=== PATIENT | male | born 1950 | race Caucasian/White ===

== ENCOUNTER 2017-05-06 20:40 | Emergency (ER) | payer BC ==
--- NOTE | 2017-05-06 20:49 | PDOC ---
History of Present Illness - History of Present Illness Initial Comments: 05/06/17 21:03 Mr. Parsons is a 66 yo male w/ pmh of Stage 3/4 heart failure (last echo approx. 2 months ago in low 40's, Health Care Coordinator Dr. Navas), BPH, Transitional Cell Carcinoma of the bladder (in remission for approximately 1 year), DMII, ACS with Cardiac stents (5) who presents complaining of 3 days of right arm pain. He reports it started after he was helping his to shovel snow and that it has continued until today. He further reports it feels similar to his last cardiac event and that it is now involving the left arm as well. He is accompanied by his son who is a very good historian (current 3rd year med student). The patient denies chest pain, shortness of breath, headache and dizziness. Denies fever, chills, nausea, vomit, diarrhea and constipation. Denies dysuria, frequency, urgency and hematuria. Allergies: NKDA <Franki Robles - Last Filed: 05/06/17 23:15> <Cheryle Stovall - Last Filed: 05/06/17 23:42> - General Stated Complaint: WEAKNESS Time Seen by Provider: 05/06/17 20:49 Past History - Past Medical History Anemia: No Asthma: No Cancer: No Cardiac Disorders: Yes ([place] STENT INSERTION X3 2011) CVA: No COPD: No CHF: No Dementia: No Diabetes: Yes (NIDDM) GI Disorders: No Disorders: No HTN: Yes Hypercholesterolemia: Yes Liver Disease: No Seizures: No Thyroid Disease: No - Surgical History Cardiac Surgery: Yes (3 STENTS) - Suicide/Smoking/Psychosocial Hx Smoking History: Former smoker Have you smoked in the past 12 months: Yes 'Breaking Loose' booklet given: 03/02/16 Hx Alcohol Use: No Drug/Substance Use Hx: No Substance Use Type: None <Franki Robles - Last Filed: 05/06/17 23:15> <Cheryle Stovall - Last Filed: 05/06/17 23:42> - Past Medical History Allergies/Adverse Reactions: Allergies Allergy/AdvReac Type Severity Reaction Status Date / Time No Known Allergies Allergy Verified 05/06/17 21:08 Home Medications: Ambulatory Orders Aspirin [ASA -] 81 mg PO DAILY 03/02/16 Atorvastatin Ca [Lipitor] 40 mg PO HS 03/02/16 Carvedilol 25 mg PO BID 03/02/16 Fenofibrate [Lofibra] 160 mg PO DAILY 03/02/16 Glipizide Xl [Glucotrol Xl -] 10 mg PO DAILY@0700 03/02/16 Insulin Glulisine [Apidra Solostar] 100 unit SQ ASDIR 03/02/16 Linagliptin/Metformin HCl [Jentadueto 2.5 mg-1000 mg Tab] 1 each PO DAILY Lisinopril 5 mg PO DAILY 03/02/16 Omeprazole 40 mg PO DAILY 03/02/16 Prasugrel HCl [Effient] 5 mg PO DAILY 03/02/16 Tamsulosin HCl 0.4 mg PO DAILY 03/02/16 Isosorbide Mononitrate [Imdur -] 30 mg PO DAILY #30 tab.sr.24h 05/06/17 Ranolazine [Ranexa] 500 mg PO BID #60 tab.er.12h 05/06/17 Review of Systems - Review of Systems Comments:: 05/06/17 21:20 GENERAL/CONSTITUTIONAL: No fever or chills. No weakness. HEAD, EYES, EARS, NOSE AND THROAT: No change in vision. No ear pain or discharge. No sore throat. CARDIOVASCULAR: No chest pain or shortness of breath RESPIRATORY: No cough, wheezing, or hemoptysis. GASTROINTESTINAL: No nausea, vomiting, diarrhea or constipation. GENITOURINARY: No dysuria, frequency, or change in urination. MUSCULOSKELETAL: +Arm pain as described SKIN: No rash NEUROLOGIC: No headache, vertigo, loss of consciousness, or change in strength/ sensation. ENDOCRINE: No increased thirst. No abnormal weight change HEMATOLOGIC/LYMPHATIC: No anemia, easy bleeding, or history of blood clots. ALLERGIC/IMMUNOLOGIC: No hives or skin allergy. <Franki Robles - Last Filed: 05/06/17 23:15> *Physical Exam - Physical Exam Comments: 05/06/17 21:21 GENERAL: Awake, alert, and fully oriented, in no acute distress HEAD: No signs of trauma, normocephalic, atraumatic EYES: PERRLA, EOMI, sclera anicteric, conjunctiva clear ENT: Auricles normal inspection, hearing grossly normal, nares patent, oropharynx clear without exudates. Moist mucosa NECK: Normal ROM, supple, no lymphadenopathy, JVD, or masses LUNGS: No distress, speaks full sentences, clear to auscultation bilaterally HEART: Regular rate and rhythm, normal S1 and S2, no murmurs, rubs or gallops, peripheral pulses normal and equal bilaterally. ABDOMEN: Soft, nontender, normoactive bowel sounds. No guarding, no rebound. No masses EXTREMITIES: Normal inspection, Normal range of motion, no edema. No clubbing or cyanosis. NEUROLOGICAL: Cranial nerves II through XII grossly intact. Normal speech, normal gait, no focal sensorimotor deficits SKIN: Warm, Dry, normal turgor, no rashes or lesions noted. <Franki Robles - Last Filed: 05/06/17 23:15> - Vital Signs Last Vital Signs Temp Pulse Resp BP Pulse Ox 97.6 F 88 20 130/86 92 L 05/06/17 20:40 05/06/17 20:40 05/06/17 20:40 05/06/17 20:40 05/06/17 20:40 <Cheryle Stovall - Last Filed: 05/06/17 23:42> ED Treatment Course - LABORATORY CBC & Chemistry Diagram: 05/06/17 21:00 05/06/17 21:00 <Franki Robles - Last Filed: 05/06/17 23:15> - LABORATORY CBC & Chemistry Diagram: 05/06/17 21:00 05/06/17 21:00 - ADDITIONAL ORDERS Additional order review: Laboratory Results 05/06/17 05/06/17 05/06/17 21:00 21:00 21:00 PT with INR 11.60 INR 1.03 PTT (Actin FS) 28.9 Sodium Potassium Chloride Carbon Dioxide Anion Gap BUN Creatinine Creat Clearance w eGFR Random Glucose Lactic Acid 1.9 Calcium Total Bilirubin AST ALT Alkaline Phosphatase Creatine Kinase Troponin I Total Protein Albumin Blood Type A POSITIVE Antibody Screen Negative 05/06/17 21:00 PT with INR INR PTT (Actin FS) Sodium 137 Potassium 4.1 Chloride 102 Carbon Dioxide 28 Anion Gap 7 L BUN 13 Creatinine 0.8 Creat Clearance w eGFR > 60 Random Glucose 170 H Lactic Acid Calcium 8.6 Total Bilirubin 0.6 AST 14 L ALT 29 Alkaline Phosphatase 63 Creatine Kinase 74 Troponin I < 0.02 Total Protein 7.4 Albumin 3.7 Blood Type Antibody Screen 05/06/17 21:00 RBC 5.96 H MCV 70.7 L MCHC 31.9 L RDW 18.5 H MPV 8.9 Neutrophils % No Result Required. Lymphocytes % No Result Required. <Cheryle Stovall - Last Filed: 05/06/17 23:42> Medical Decision Making - Medical Decision Making 05/06/17 22:12 Mr. Parsons is a 66 yo male w/ pmh as described who presents w/ complaints of Right arm pain for 3 days. Due to cardiac history workup begun for ACS; troponins and EKG revealed no acute process. Discussed patient with incident response analyst who recommended Ranexa and Imdur and follow-up. Patient verbalized understanding and agreement and will comply. <Franki Robles - Last Filed: 05/06/17 23:15> *DC/Admit/Observation/Transfer <Franki Robles - Last Filed: 05/06/17 23:15> <Cheryle Stovall - Last Filed: 05/06/17 23:42> - Discharge Dispostion Disposition: HOME - Prescriptions Prescriptions: Isosorbide Mononitrate [Imdur -] 30 mg PO DAILY #30 tab.sr.24h Ranolazine [Ranexa] 500 mg PO BID #60 tab.er.12h
[2017-05-06 21:15] LABS: HEMATOCRIT 42.1 % (35.4-49); HEMOGLOBIN 13.4 GM/dL (11.7-16.9); MCH 22.5 pg (25.7-33.7); MCHC 31.9 g/dl (32.0-35.9); MEAN CELL VOLUME 70.7 fl (80-96); MEAN PLT VOLUME 8.9 fl (7.5-11.1); PLATELET COUNT 202 K/MM3 (134-434); RBC 5.96 M/mm3 (4.00-5.60); RDW 18.5 % (11.9-15.9); WHITE BLOOD COUNT 6.6 K/mm3 (4.0-10.0)
[2017-05-06 21:29] LABS: INR 1.03 (0.82-1.09); PROTHROMBIN TIME (PATIENT) 11.6 SEC (9.98-11.88)
[2017-05-06 21:32] LABS: ACTIVATED PTT 28.9 SECONDS (26.9-34.4)
[2017-05-06 21:40] VITALS: BP 130/86; PULSE 88; TEMP 97.6; BMI 28.7
[2017-05-06 21:40] LABS: ALBUMIN 3.7 g/dl (3.4-5.0); ANION GAP 7 (8-16); BILIRUBIN,TOTAL 0.6 mg/dL (0.2-1.0); BLOOD UREA NITROGEN 13 mg/dL (7-18); CALCIUM 8.6 mg/dL (8.5-10.1); CHLORIDE 102 mmol/L (98-107); CO2 28 mmol/L (21-32); CREATININE 0.8 mg/dL (0.7-1.3); GLUCOSE,RANDOM 170 mg/dL (74-106); POTASSIUM 4.1 mmol/L (3.5-5.1); SGOT/AST 14 U/L (15-37); SGPT/ALT 29 U/L (12-78); SODIUM 137 mmol/L (136-145)
[2017-05-06 21:43] LABS: ALK PHOS 63 U/L (45-117); TOT PROT 7.4 g/dl (6.4-8.2)
[2017-05-07 01:21] LABS: ANISOCYTOSIS 1+
--- NOTE | 2017-05-07 16:49 | EKG ---
Test Reason : Blood Pressure : / mmHG Vent. Rate : 088 BPM Atrial Rate : 088 BPM P-R Int : 170 ms QRS Dur : 090 ms QT Int : 380 ms P-R-T Axes : 019 -12 044 degrees QTc Int : 459 ms NORMAL SINUS RHYTHM LOW VOLTAGE QRS CANNOT RULE OUT INFERIOR INFARCT (CITED ON OR BEFORE 31-AUG-2004) ABNORMAL ECG WHEN COMPARED WITH ECG OF 13-JUN-2013 09:22, NO SIGNIFICANT CHANGE WAS FOUND Confirmed by EVE MOBLEY MD ([id number]) on 05/07/2017 4:49:24 PM Referred By: Confirmed By:EVE MOBLEY MD
== END 2017-05-06 22:54 | disposition home or self-care (01) ==
LOC: JER 20:40
DX: I25.10 Atherosclerotic heart disease of native coronary artery without angina pectoris (principal); I11.0 Hypertensive heart disease with heart failure; Z95.5 Presence of coronary angioplasty implant and graft; E11.9 Type 2 diabetes mellitus without complications; Z79.84 Long term (current) use of oral hypoglycemic drugs; E78.00 Pure hypercholesterolemia, unspecified
CPT/HCPCS: 36415; 71046-TC; 80053; 82550; 83605; 84484; 85025; 85610; 85730; 86850; 86900; 86901; 93005; 93010; 99282-25

== ENCOUNTER 2017-12-09 12:30 | Inpatient (IN) | payer BC ==
[2017-12-09 14:11] LABS: BASO % 0.7 % (0-2.0); EOS % 0.6 % (0-4.5); HEMATOCRIT 38.1 % (35.4-49); HEMOGLOBIN 12.8 GM/dL (11.7-16.9); LYMPH % 15.1 % (8-40); MCH 23.7 pg (25.7-33.7); MCHC 33.5 g/dl (32.0-35.9); MEAN CELL VOLUME 70.9 fl (80-96); MONO % 8.9 % (3.8-10.2); NEUT % 74.7 % (42.8-82.8); PLATELET COUNT 169 K/MM3 (134-434); RBC 5.37 M/mm3 (4.00-5.60); RDW 17.7 % (11.9-15.9); WHITE BLOOD COUNT 5.3 K/mm3 (4.0-10.0)
--- NOTE | 2017-12-09 14:21 | PDOC ---
History of Present Illness - General Chief Complaint: Pain, Acute Stated Complaint: EPIGASTRIC PAIN/PCP REFERRAL Time Seen by Provider: 12/09/17 14:14 - History of Present Illness Initial Comments: 12/09/17 14:20 Mr. Parsons is a 67 yo male w/ pmh of Stage 3/4 heart failure (last echo approx. 2 months ago in low 40's, [employer] Supervisor Dr. Navas), BPH, Transitional Cell Carcinoma of the bladder (in remission for approximately 1 year), DMII, ACS with Cardiac stents (5) presenting with epigastric pain worsening after eating or drinking since 2 days. No episodes of vomiting but endorses nausea. Was given PPI's that he uses for GERD and felt much better. Patient now virtually asymptomatic. Sent by Dr. Brown to r/o gallstones. Past History - Past Medical History Allergies/Adverse Reactions: Allergies Allergy/AdvReac Type Severity Reaction Status Date / Time No Known Allergies Allergy Verified 12/09/17 12:39 Home Medications: Ambulatory Orders Aspirin [ASA -] 81 mg PO DAILY 03/02/16 Atorvastatin Ca [Lipitor] 40 mg PO HS 03/02/16 Carvedilol 25 mg PO BID 03/02/16 Fenofibrate [Lofibra] 160 mg PO DAILY 03/02/16 Glipizide Xl [Glucotrol Xl -] 10 mg PO DAILY@0700 03/02/16 Insulin Glulisine [Apidra Solostar] 100 unit SQ ASDIR 03/02/16 Linagliptin/Metformin HCl [Jentadueto 2.5 mg-1000 mg Tab] 1 each PO DAILY Lisinopril 5 mg PO DAILY 03/02/16 Omeprazole 40 mg PO DAILY 03/02/16 Prasugrel HCl [Effient] 5 mg PO DAILY 03/02/16 Tamsulosin HCl 0.4 mg PO DAILY 03/02/16 Isosorbide Mononitrate [Imdur -] 30 mg PO DAILY #30 tab.sr.24h 05/06/17 Ranolazine [Ranexa] 500 mg PO BID #60 tab.er.12h 05/06/17 Anemia: No Asthma: No Cancer: Yes (BLADDER) Cardiac Disorders: Yes ([place] STENT INSERTION X4 2011) CVA: No COPD: No CHF: No DVT: No Dementia: No Diabetes: Yes (NIDDM) GI Disorders: No Disorders: No HTN: Yes Hypercholesterolemia: Yes Liver Disease: No Seizures: No Thyroid Disease: No - Surgical History Cardiac Surgery: Yes (3 STENTS) - Suicide/Smoking/Psychosocial Hx Smoking History: Former smoker Have you smoked in the past 12 months: Yes If you are a former smoker, when did you quit?: 1 year ago Information on smoking cessation initiated: No 'Breaking Loose' booklet given: 03/02/16 Hx Alcohol Use: No Drug/Substance Use Hx: No Substance Use Type: None Review of Systems - Review of Systems Able to Perform ROS?: Yes Is the patient limited Swedish proficient: No Constitutional: No: Symptoms Reported HEENTM: No: Symptoms Reported Respiratory: No: Symptoms reported Cardiac (ROS): No: Symptoms Reported ABD/GI: Yes: See HPI : No: Symptoms Reported Musculoskeletal: No: Symptoms Reported Integumentary: No: Symptoms Reported All Other Systems: Reviewed and Negative *Physical Exam - Vital Signs Last Vital Signs Temp Pulse Resp BP Pulse Ox 98.6 F 96 H 18 92/58 100 12/09/17 12:39 12/09/17 12:39 12/09/17 12:39 12/09/17 12:39 12/09/17 12:39 - Physical Exam General Appearance: Yes: Nourished, Appropriately Dressed, Apparent Distress HEENT: positive: EOMI, RANDOLPH, Normal ENT Inspection Respiratory/Chest: positive: Lungs Clear, Normal Breath Sounds. negative: Chest Tender, Respiratory Distress Cardiovascular: positive: Regular Rhythm, Regular Rate, S1, S2 Gastrointestinal/Abdominal: positive: Normal Bowel Sounds, Flat, Soft. negative : Tender Musculoskeletal: positive: Normal Inspection Extremity: positive: Normal Capillary Refill, Normal Inspection, Normal Range of Motion Integumentary: positive: Normal Color, Dry, Warm Neurologic: positive: Fully Oriented, Alert, Normal Mood/Affect, Normal Response , Motor Strength 5/5 ED Treatment Course - LABORATORY CBC & Chemistry Diagram: 12/09/17 14:00 12/09/17 14:00 - ADDITIONAL ORDERS Additional order review: 12/09/17 14:00 RBC 5.37 MCV 70.9 L MCHC 33.5 RDW 17.7 H MPV 9.0 Neutrophils % 74.7 Lymphocytes % 15.1 Monocytes % 8.9 Eosinophils % 0.6 Basophils % 0.7 Medical Decision Making - Medical Decision Making 12/09/17 15:54labs abd US pending. This is more likely dyspepsia vs chronic cholecystitis vs cholelithiasis 12/09/17 17:56 Cholelithiasis is noted. There is diffuse gallbladder wall thickening. Similar diffuse gallbladder wall thickening was noted on a 02/02/2016 MRI study suggesting this finding is on the basis of chronic cholecystitis and probably less likely representing recurrent wall thickening due to acute cholecystitis. Correlate clinically. There is no definite biliary tract dilatation. Diffuse hepatic steatosis is noted. A 2.4 cm nonspecific hypoechoic left hepatic lobe focus is seen which could be on the basis of incidental focal fatty sparing. However, no definite corresponding focus can be appreciated on the 2016 MRI study. Correlation with nonemergent follow-up contrast enhanced MRI is suggested to exclude development of a neoplastic lesion. Spoke to Dr. Brown who asked to admit to dr. Vences and surgical consult with Dr. Aguilar. Will start patient on zosyn. 12/09/17 18:[address] Aguilar who will see the patient in the morning. Patient admitted to Med-surg under Dr. Vences *DC/Admit/Observation/Transfer Diagnosis at time of Disposition: Chronic cholecystitis - Discharge Dispostion Decision to Admit order: Yes - Referrals Referrals: Aleja Brown MD [Primary Care Provider] - - Patient Instructions - Post Discharge Activity
[2017-12-09 15:24] LABS: ANISOCYTOSIS 0; MACROCYTOSIS 0; PLATELET ESTIMATE NORMAL
--- NOTE | 2017-12-09 15:43 | PDOC ---
Attending Attestation - HPI HPI: 12/09/17 16:50 The patient is a 67-year-old male with a past medical history of [place] s/p stents, NIDDM, HTN, and HLD was sent in by Dr. Brown for evaluation. The patient presents with an acute onset of epigastric pain for the past 2 days, aggravated following eating or drinking, without relief. The patient reports associated concern of nausea denies vomiting. Denies fever, chills, cough or a headache. Denies chest pain or shortness of breath. Denies dysuria, hematuria, frequency or urgency to urinate. Allergies: NKA Surgical history: Stents and hernia repair Social history: Former smoker. No alcohol or recreational drug use reported. PCP: Aleja Chan MD - Physicial Exam PE: 12/09/17 16:50 Vitals: Triage vital signs reviewed General Appearance: No acute distress, well nourished, well developed Head: Atraumatic Neck: Supple; No nuchal rigidity Chest Wall: Nontender Cardiac: Regular rate and rhythm, no murmurs, no rubs, no gallops Lungs: Clear to auscultation bilateral, good air movement bilaterally Abdomen: Soft, nondistended, normal bowel sounds, nontender to palpation Extremities: Full range of motion to all extremities, no cyanosis, clubbing, or edema Skin: Warm and dry, no rashes or lesions, no rash, no petechiae Psych: Normal mood, normal affect - Medical Decision Making 12/09/17 16:50 The patient is a 67-year-old male with a past medical history of [place] s/p stents, NIDDM, HTN, and HLD was sent in by Dr. Brown for evaluation. The patient presents with an acute onset of epigastric pain for the past 2 days, aggravated following eating or drinking, without relief. The patient reports associated concern of nausea denies vomiting. Denies fever, chills, cough or a headache. Denies chest pain or shortness of breath. Denies dysuria, hematuria, frequency or urgency to urinate. 12/09/17 16:51 Documentation prepared by Alem Eller, acting as medical superintendent for Cody Layton MD. <Alem Eller - Last Filed: 12/09/17 16:50> - Resident Resident Name: Jono Moncada - ED Attending Attestation I have performed the following: I have examined & evaluated the patient, The case was reviewed & discussed with the resident, I agree w/resident's findings & plan, Exceptions are as noted - Medical Decision Making Labs ultrasound pending Dr. Perera to follow up results and reassess. <Cody Layton - Last Filed: 12/09/17 17:17>
[2017-12-09 17:33] LABS: ALBUMIN 3.5 g/dl (3.4-5.0); ALK PHOS 94 U/L (45-117); AMYLASE 44 U/L (25-115); ANION GAP 11 (8-16); BILIRUBIN,TOTAL 2.6 mg/dL (0.2-1.0); BLOOD UREA NITROGEN 20 mg/dL (7-18); CALCIUM 9.6 mg/dL (8.5-10.1); CHLORIDE 103 mmol/L (98-107); CO2 24 mmol/L (21-32); GLUCOSE,RANDOM 104 mg/dL (74-106); LIPASE 101 U/L (73-393); SGPT/ALT 359 U/L (12-78); SODIUM 138 mmol/L (136-145); TOT PROT 6.7 g/dl (6.4-8.2)
[2017-12-09 17:39] LABS: POTASSIUM 4.7 mmol/L (3.5-5.1); SGOT/AST 416 U/L (15-37)
[2017-12-09 17:49] LABS: INR 1.13 (0.83-1.09); PROTHROMBIN TIME (PATIENT) 12.8 SEC (9.7-13.0)
[2017-12-09 17:51] LABS: ACTIVATED PTT 25.8 SECONDS (25.2-36.5)
[2017-12-09] MEDS ORDERED: PIPERACILLIN/TAZOB 3.375 GM 3.375 GM in DEXTROSE 5%-WATER - 50 ML IVPB ONE (17:52)
[2017-12-09] MEDS ORDERED: SODIUM CHLORIDE 1,000 ML IV STA (17:58)
[2017-12-09] MEDS ORDERED: MORPHINE SULFATE 2 MG/ML VIAL IVPUSH PRN (17:59)
--- NOTE | 2017-12-09 18:04 | HP ---
Admitting History and Physical - Admission History of Present Illness: 67-year-old male with a past medical history of [place] s/p stents, NIDDM, HTN, and HLD was sent in by Dr. Brown for evaluation. The patient presents with an acute onset of epigastric pain for the past 2 days, aggravated following eating or drinking, without relief. The patient reports associated concern of nausea denies vomiting. Denies fever, chills, cough or a headache. Denies chest pain or shortness of breath. Denies dysuria, hematuria, frequency or urgency to urinate. Patient feels better at this time - Past Medical History Cardiovascular: Yes: CAD (s.p stenting), HTN, Hyperlipdemia Gastrointestinal: Yes: GERD Renal/: Yes: Cancer (bladder) Endocrine: Yes: Diabetes Mellitus - Smoking History Smoking history: Former smoker Have you smoked in the past 12 months: Yes If you are a former smoker, when did you quit?: 1 year ago - Alcohol/Substance Use Hx Alcohol Use: No Home Medications - Allergies Allergies/Adverse Reactions: Allergies Allergy/AdvReac Type Severity Reaction Status Date / Time No Known Allergies Allergy Verified 12/09/17 12:39 - Home Medications Home Medications: Ambulatory Orders Aspirin [ASA -] 81 mg PO DAILY 03/02/16 Atorvastatin Ca [Lipitor] 40 mg PO HS 03/02/16 Carvedilol 25 mg PO BID 03/02/16 Fenofibrate [Lofibra] 160 mg PO DAILY 03/02/16 Glipizide Xl [Glucotrol Xl -] 10 mg PO DAILY@0700 03/02/16 Insulin Glulisine [Apidra Solostar] 100 unit SQ ASDIR 03/02/16 Linagliptin/Metformin HCl [Jentadueto 2.5 mg-1000 mg Tab] 1 each PO DAILY Lisinopril 5 mg PO DAILY 03/02/16 Omeprazole 40 mg PO DAILY 03/02/16 Prasugrel HCl [Effient] 5 mg PO DAILY 03/02/16 Tamsulosin HCl 0.4 mg PO DAILY 03/02/16 Isosorbide Mononitrate [Imdur -] 30 mg PO DAILY #30 tab.sr.24h 05/06/17 Ranolazine [Ranexa] 500 mg PO BID #60 tab.er.12h 05/06/17 Review of Systems - Review of Systems Cardiovascular: denies: Chest Pain, Palpitations, Shortness of Breath Respiratory: denies: SOB Gastrointestinal: reports: Abdominal Pain, Nausea. denies: Vomiting Genitourinary: reports: No Symptoms Neurological: reports: No Symptoms Physical Examination Vital Signs: Vital Signs Temperature 98.6 F 12/09/17 12:39 Pulse Rate 96 H 12/09/17 12:39 Respiratory Rate 18 12/09/17 12:39 Blood Pressure 92/58 12/09/17 12:39 O2 Sat by Pulse Oximetry (%) 100 12/09/17 12:39 Cardiovascular: Yes: Regular Rate and Rhythm Respiratory: Yes: Regular, CTA Bilaterally Gastrointestinal: Yes: Normal Bowel Sounds, Soft. No: Tenderness Edema: No Labs: CBC, BMP 12/09/17 14:00 Imaging - Results Ultrasound: Report Reviewed Problem List - Problems (1) Cholecystitis Assessment/Plan: -Cultures -IV abx -ID Surgical and GI consults -Follow Labs -NPO Code(s): K81.9 - CHOLECYSTITIS, UNSPECIFIED (2) Abnormal liver enzymes Assessment/Plan: -As Above Code(s): R74.8 - ABNORMAL LEVELS OF OTHER SERUM ENZYMES (3) Cholelithiasis Assessment/Plan: =MRCP Code(s): K80.20 - CALCULUS OF GALLBLADDER W/O CHOLECYSTITIS W/O OBSTRUCTION (4) Diabetes Assessment/Plan: -Hold meds since npo -IVF -BGM Code(s): E11.9 - TYPE 2 DIABETES MELLITUS WITHOUT COMPLICATIONS (5) Liver lesion Assessment/Plan: -MRI Code(s): K76.9 - LIVER DISEASE, UNSPECIFIED (6) CAD (coronary artery disease) Code(s): I25.10 - ATHSCL HEART DISEASE OF [place] CORONARY ARTERY W/O ANG PCTRS (7) Bladder cancer Assessment/Plan: in Remission Code(s): C67.9 - MALIGNANT NEOPLASM OF BLADDER, UNSPECIFIED
[2017-12-09] MEDS ORDERED: PIPERACILLIN/TAZOB 3.375 GM 3.375 GM/50 ML BAG IVPB ONE (18:46)
[2017-12-09] MEDS: CARVEDILOL 25 MG TABLET (FP) PO SCH (21:48)
[2017-12-09] MEDS: HEPARIN NA (PORCINE) 5,000 UNITS/ML 1ML VIAL SQ SCH (21:48)
[2017-12-09] MEDS: RANOLAZINE E.R. 500 MG TABLET (FP) PO SCH (21:48)
[2017-12-09] MEDS: D5-1/2NS+20 MEQ KCL - 20 MEQ/1,000 ML INFUS.BAG IV SCH (21:50)
[2017-12-09] MEDS: INSULIN SLIDING SCALE (NOVOLOG) 1 VIAL SQ SCH (21:57)
[2017-12-09 22:47] VITALS: BMI 28.1
[2017-12-10] MEDS ORDERED: DEXTROSE 5%-WATER - 50 ML IVPB ONE ×2 (00:41→10:18)
[2017-12-10] MEDS ORDERED: PIPERACILLIN/TAZOBACTAM 3.375 GM VIAL IVPB ONE ×2 (00:41→10:18)
[2017-12-10] MEDS: PIPERACILLIN/TAZOB 3.375 GM 3.375 GM in DEXTROSE 5%-WATER - 50 ML IVPB SCH ×2 (01:35→10:44)
[2017-12-10] MEDS: INSULIN SLIDING SCALE (NOVOLOG) 1 VIAL SQ SCH ×4 (06:25→22:18)
[2017-12-10] MEDS ORDERED: TAMSULOSIN HCL 0.4 MG CAP.ER.24H (FP) PO SCH (08:30)
[2017-12-10 09:01] LABS: BASO % 0.6 % (0-2.0); EOS % 2.5 % (0-4.5); HEMATOCRIT 37.7 % (35.4-49); HEMOGLOBIN 12.6 GM/dL (11.7-16.9); LYMPH % 20.1 % (8-40); MCH 23.6 pg (25.7-33.7); MCHC 33.4 g/dl (32.0-35.9); MEAN CELL VOLUME 70.8 fl (80-96); MEAN PLT VOLUME 9.1 fl (7.5-11.1); MONO % 9.6 % (3.8-10.2); NEUT % 67.2 % (42.8-82.8); PLATELET COUNT 151 K/MM3 (134-434); RBC 5.33 M/mm3 (4.00-5.60); RDW 17.8 % (11.9-15.9)
--- NOTE | 2017-12-10 09:17 | CONSULT ---
Consult Consult Specialty:: surgery - History of Present Illness Chief Complaint: Abdominal pain History of Present Illness: 67 yr old male presents with acute onset of epigastric pain radiatin to the RUQ which began approximately 36 hrs ago. He reports significnat improvement on pain syndrome since arrival in the hospital, Denies nausea or vomiting - History Source History Provided By: Patient Limitations to Obtaining History: No Limitations - Past Medical History Cardio/Vascular: Yes: CAD (s.p stenting), HTN, Hyperlipdemia Gastrointestinal: Yes: GERD Renal/: Yes: Cancer (bladder) Endocrine: Yes: Diabetes Mellitus - Alcohol/Substance Use Hx Alcohol Use: No - Smoking History Smoking history: Former smoker Have you smoked in the past 12 months: Yes If you are a former smoker, when did you quit?: 3 years ago Home Medications - Allergies Allergies/Adverse Reactions: Allergies Allergy/AdvReac Type Severity Reaction Status Date / Time No Known Allergies Allergy Verified 12/09/17 12:39 - Home Medications Home Medications: Ambulatory Orders Aspirin [ASA -] 81 mg PO DAILY 03/02/16 Atorvastatin Ca [Lipitor] 40 mg PO HS 03/02/16 Carvedilol 25 mg PO BID 03/02/16 Fenofibrate [Lofibra] 160 mg PO DAILY 03/02/16 Glipizide Xl [Glucotrol Xl -] 10 mg PO DAILY@0700 03/02/16 Insulin Glulisine [Apidra Solostar] 100 unit SQ ASDIR 03/02/16 Linagliptin/Metformin HCl [Jentadueto 2.5 mg-1000 mg Tab] 1 each PO DAILY Lisinopril 5 mg PO DAILY 03/02/16 Omeprazole 40 mg PO DAILY 03/02/16 Prasugrel HCl [Effient] 5 mg PO DAILY 03/02/16 Tamsulosin HCl 0.4 mg PO DAILY 03/02/16 Isosorbide Mononitrate [Imdur -] 30 mg PO DAILY #30 tab.sr.24h 05/06/17 Ranolazine [Ranexa] 500 mg PO BID #60 tab.er.12h 05/06/17 Physical Exam Vital Signs: Vital Signs Temperature 97.6 F 12/10/17 06:00 Pulse Rate 85 12/10/17 06:00 Respiratory Rate 20 12/10/17 06:00 Blood Pressure 92/60 12/10/17 06:00 O2 Sat by Pulse Oximetry (%) 97 12/09/17 21:10 Imaging - Results Ultrasound: Report Reviewed, Image Reviewed MRI: Image Reviewed Problem List - Problems (1) Cholecystitis Code(s): K81.9 - CHOLECYSTITIS, UNSPECIFIED Assessment/Plan 67 yr old male with acute on chronic cholecystitis and elevated Bili and liver enzymes MRCP results pending Plan for laparoscopic cholecystectomy either tomorrow or tuesday depending on whether MRCP dictates Preop GI intervention
[2017-12-10 09:23] LABS: ALBUMIN 3.3 g/dl (3.4-5.0); ANION GAP 9 (8-16); BLOOD UREA NITROGEN 12 mg/dL (7-18); CALCIUM 8.6 mg/dL (8.5-10.1); CHLORIDE 105 mmol/L (98-107); CO2 26 mmol/L (21-32); CREATININE 0.9 mg/dL (0.7-1.3); GLUCOSE,RANDOM 96 mg/dL (74-106); LIPASE 93 U/L (73-393); SGOT/AST 329 U/L (15-37); SODIUM 140 mmol/L (136-145); TOT PROT 6.4 g/dl (6.4-8.2)
[2017-12-10 09:26] LABS: ALK PHOS 126 U/L (45-117)
[2017-12-10 09:31] LABS: SGPT/ALT 439 U/L (12-78)
[2017-12-10 09:38] LABS: CHOLESTEROL 118 mg/dL (50-200); HDL CHOLESTEROL 28 mg/dL (40-60); TRIGLYCERIDES 275 mg/dL (35-160)
--- NOTE | 2017-12-10 10:41 | PN ---
Progress Note, Physician History of Present Illness: denies any pain - Current Medication List Current Medications: Active Medications Carvedilol (Coreg -) 25 mg PO BID [facility] Last Admin: 12/09/17 21:48 Dose: 25 mg Heparin Sodium (Porcine) (Heparin -) 5,000 unit SQ BID [facility] Last Admin: 12/09/17 21:48 Dose: 5,000 unit Potassium Chloride/Dextrose/Sod Cl (D5-1/2ns+20 Meq Kcl -) 20 meq in 1,000 mls @ 75 mls/hr IV ASDIR [facility] Last Admin: 12/09/17 21:50 Dose: 75 mls/hr Piperacillin Sod/Tazobactam (Sod 3.375 gm/ Dextrose) 50 mls @ 100 mls/hr IVPB Q8H-IV [facility]; Protocol Insulin Aspart (Novolog Vial Sliding Scale -) 1 vial SQ ACHS [facility]; Protocol Last Admin: 12/10/17 06:25 Dose: Not Given Isosorbide Mononitrate (Imdur -) 30 mg PO DAILY [facility] Lisinopril (Prinivil) 5 mg PO DAILY [facility] Morphine Sulfate (Morphine Sulfate) 1 mg IVPUSH Q4H PRN PRN Reason: PAIN LEVEL 6-10 Ranolazine (Ranexa -) 500 mg PO BID [facility] Last Admin: 12/09/17 21:48 Dose: 500 mg Tamsulosin HCl (Flomax -) 0.4 mg PO DAILY@0830 [facility] Last Admin: 12/10/17 08:39 Dose: 0.4 mg - Objective Vital Signs: Vital Signs Temperature 97.6 F 12/10/17 06:00 Pulse Rate 85 12/10/17 06:00 Respiratory Rate 20 12/10/17 06:00 Blood Pressure 92/60 12/10/17 06:00 O2 Sat by Pulse Oximetry (%) 97 12/09/17 21:10 Cardiovascular: Yes: Regular Rate and Rhythm Respiratory: Yes: Regular, CTA Bilaterally Gastrointestinal: Yes: Normal Bowel Sounds, Soft. No: Tenderness Labs: CBC, BMP 12/10/17 08:00 12/10/17 08:00 INR, PTT INR 1.13 (0.83-1.09) H 12/09/17 17:25 Problem List - Problems (1) Cholecystitis Assessment/Plan: -Cultures Microbiology 12/09/17 18:45 Blood Culture - Preliminary Blood - Peripheral Venous Pending Organism -IV abx--on zosyn -ID Surgical and GI consults -Follow Labs -NPO Code(s): K81.9 - CHOLECYSTITIS, UNSPECIFIED (2) Abnormal liver enzymes Assessment/Plan: -As Above Code(s): R74.8 - ABNORMAL LEVELS OF OTHER SERUM ENZYMES (3) Cholelithiasis Assessment/Plan: =MRCP--1.8 cm stone a t neck pf gb -surgical consult noted and discussed--for cholecystectomy Code(s): K80.20 - CALCULUS OF GALLBLADDER W/O CHOLECYSTITIS W/O OBSTRUCTION (4) Diabetes Assessment/Plan: -Hold meds since npo -IVF -BGM Code(s): E11.9 - TYPE 2 DIABETES MELLITUS WITHOUT COMPLICATIONS (5) Liver lesion Assessment/Plan: -MRI--fatty liver Code(s): K76.9 - LIVER DISEASE, UNSPECIFIED (6) CAD (coronary artery disease) Assessment/Plan: --Cradio consult -last ef noted 31% --EKG--NSR inferior q waves -trop negative -no cp or sob -Preop eval Code(s): I25.10 - ATHSCL HEART DISEASE OF [place] CORONARY ARTERY W/O ANG PCTRS (7) Bladder cancer Assessment/Plan: in Remission Code(s): C67.9 - MALIGNANT NEOPLASM OF [place]AD[place], UNSPECIFIED
[2017-12-10] MEDS: RANOLAZINE E.R. 500 MG TABLET (FP) PO SCH ×2 (10:44→22:10)
[2017-12-10] MEDS: ISOSORBIDE MONONITRATE 30 MG TAB.SR.24H (FP) PO SCH (10:44)
[2017-12-10] MEDS: CARVEDILOL 25 MG TABLET (FP) PO SCH ×3 (10:44→22:15)
[2017-12-10] MEDS: HEPARIN NA (PORCINE) 5,000 UNITS/ML 1ML VIAL SQ SCH ×2 (10:45→22:10)
[2017-12-10] MEDS: LISINOPRIL 5 MG TABLET (FP) PO SCH (10:46)
[2017-12-10 12:25] LABS: PLATELET ESTIMATE ADEQUATE
--- NOTE | 2017-12-10 14:34 | CON.CARD ---
Consult Consult Specialty:: Cardiology Referred by:: Bijan Vences MD Reason for Consultation:: Pre-operative cardiovascular evaluation - History of Present Illness Chief Complaint: Abd pain History of Present Illness: 67-year-old male with h/o CAD post OK s/p multivessel stents, ischemic dilated cardiomyopathy, NIDDM, HTN, and HLD presented with an acute onset of epigastric pain radiating to RUQ aggravated following eating or drinking, associated with nausea without vomiting, fevers, chills, since resolved. Denies chest pain or shortness of breath worse than baseline, near or true syncope, palpitations, orthopnea, PND or LE edema. Imaging shows cholelithiasis and chronic cholecystitis w/o choledocholithiasis. Last dose of Effient . - History Source History Provided By: Patient Limitations to Obtaining History: No Limitations - Past Medical History Cardio/Vascular: Yes: CAD (s.p stenting), HTN, Hyperlipdemia Gastrointestinal: Yes: GERD Renal/: Yes: Cancer (bladder) Endocrine: Yes: Diabetes Mellitus - Alcohol/Substance Use Hx Alcohol Use: No - Smoking History Smoking history: Former smoker Have you smoked in the past 12 months: Yes If you are a former smoker, when did you quit?: 3 years ago Home Medications - Allergies Allergies/Adverse Reactions: Allergies Allergy/AdvReac Type Severity Reaction Status Date / Time No Known Allergies Allergy Verified 12/09/17 12:39 - Home Medications Home Medications: Ambulatory Orders Aspirin [ASA -] 81 mg PO DAILY 03/02/16 Atorvastatin Ca [Lipitor] 40 mg PO HS 03/02/16 Carvedilol 25 mg PO BID 03/02/16 Fenofibrate [Lofibra] 160 mg PO DAILY 03/02/16 Glipizide Xl [Glucotrol Xl -] 10 mg PO DAILY@0700 03/02/16 Insulin Glulisine [Apidra Solostar] 100 unit SQ ASDIR 03/02/16 Linagliptin/Metformin HCl [Jentadueto 2.5 mg-1000 mg Tab] 1 each PO DAILY Lisinopril 5 mg PO DAILY 03/02/16 Omeprazole 40 mg PO DAILY 03/02/16 Prasugrel HCl [Effient] 5 mg PO DAILY 03/02/16 Tamsulosin HCl 0.4 mg PO DAILY 03/02/16 Isosorbide Mononitrate [Imdur -] 30 mg PO DAILY #30 tab.sr.24h 05/06/17 Ranolazine [Ranexa] 500 mg PO BID #60 tab.er.12h 05/06/17 Review of Systems - Review of Systems Gastrointestinal: reports: Abdominal Pain, Nausea Vital Signs: Vital Signs Temperature 97.6 F 12/10/17 06:00 Pulse Rate 85 12/10/17 06:00 Respiratory Rate 20 12/10/17 06:00 Blood Pressure 92/60 12/10/17 06:00 O2 Sat by Pulse Oximetry (%) 97 12/09/17 21:10 Constitutional: Yes: No Distress, Calm Neck: Yes: Supple Respiratory: Yes: Regular, CTA Bilaterally Gastrointestinal: Yes: Soft, Hypoactive Bowel Sounds Cardiovascular: Yes: Regular Rate and Rhythm JVD: No Carotid Bruit: No Heart Sounds: Yes: S1, S2 Edema: No - Other Data Labs, Other Data: CBC, BMP 12/10/17 08:00 12/10/17 08:00 INR, PTT INR 1.13 (0.83-1.09) H 12/09/17 17:25 Troponin, BNP 12/09/17 12/10/17 14:00 08:00 Troponin I < 0.02 < 0.02 Troponin, BNP 12/09/17 12/10/17 14:00 08:00 Troponin I < 0.02 < 0.02 NSR @ 95 inferior infarct Ejection Fraction %: LVEF < 40 % Imaging - Results Ultrasound: Report Reviewed MRI: Report Reviewed Problem List - Problems (1) Ischemic cardiomyopathy Code(s): I25.5 - ISCHEMIC CARDIOMYOPATHY (2) Pre-operative cardiovascular examination Code(s): Z01.810 - ENCOUNTER FOR PREPROCEDURAL CARDIOVASCULAR EXAMINATION (3) Hyperlipidemia associated with type 2 diabetes mellitus Code(s): E11.69 - TYPE 2 DIABETES MELLITUS WITH OTHER SPECIFIED COMPLICATION; E78.5 - HYPERLIPIDEMIA, UNSPECIFIED (4) Hypertensive cardiomyopathy Code(s): I11.9 - HYPERTENSIVE HEART DISEASE WITHOUT HEART FAILURE; I43 - CARDIOMYOPATHY IN DISEASES CLASSIFIED ELSEWHERE Qualifiers: Heart failure presence: without heart failure Qualified Code(s): I11.9 - Hypertensive heart disease without heart failure; I43 - Cardiomyopathy in diseases classified elsewhere (5) Abnormal liver enzymes Code(s): R74.8 - ABNORMAL LEVELS OF OTHER SERUM ENZYMES (6) CAD (coronary artery disease) Code(s): I25.10 - ATHSCL HEART DISEASE OF [place] CORONARY ARTERY W/O ANG PCTRS Qualifiers: Coronary Disease-Associated Artery/Lesion type: [place] artery [place] vs. transplanted heart: [place] heart Associated angina: without angina Qualified Code(s): I25.10 - Atherosclerotic heart disease of [place] coronary artery without angina pectoris (7) Cholelithiasis Code(s): K80.20 - CALCULUS OF GALLBLADDER W/O CHOLECYSTITIS W/O OBSTRUCTION Qualifiers: Cholelithiasis location: gallbladder Cholecystitis presence: with cholecystitis Cholecystitis acuity: acute and chronic Biliary obstruction: without biliary obstruction Qualified Code(s): K80.12 - Calculus of gallbladder with acute and chronic cholecystitis without obstruction (8) Chronic cholecystitis Code(s): K81.1 - CHRONIC CHOLECYSTITIS (9) Diabetes Code(s): E11.9 - TYPE 2 DIABETES MELLITUS WITHOUT COMPLICATIONS Qualifiers: Diabetes mellitus type: type 2 Diabetes mellitus termination 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 Acute on chronic cholecystitis with elevated Bili and liver enzymes 2. Pre-operative cardiovascular evaluation pre-laparoscopic cholecystectomy 3. CAD s/p OK, multivessel PCI 4. Ischemic cardiomyopathy 5. HTN/HCVD 6. Type 2 DM 7. Hyperlipidemia 8. PAD P:1. Given recent [facility] findings and no symptoms of acute coronary syndrome, decompensated CHF or malignant arrhythmia, may proceed with lap cholecystectomy from CV-standpoint w/o further testing 2. Empiric IV abx on zosyn to cover biliary source 3. ASA and Effient held pre-op and resume once post-op hemostasis achieved, hold Lipitor 40 qhs, fenofibrate 160 qd pending LFT resolution, continue carvedilol 25 bid, lisinopril 5 qd, Imdur 30 qd and Ranexa 500 bid. Patient's last dose of Effient was 3 days ago and should wait 7 days off antiplatelet agent for surgery 4. DVT and GI prophylaxis 5. Thank you for consultative opportunity
[2017-12-10] MEDS: D5-1/2NS+20 MEQ KCL - 20 MEQ/1,000 ML INFUS.BAG IV SCH ×2 (15:00→18:48)
--- NOTE | 2017-12-10 15:21 | CON.GI ---
Consult Consult Specialty:: gi Referred by:: anoop Vences - History of Present Illness History of Present Illness: 89 y/o male was doing well until last nigh when he developed moderate epigastric pain,no nausea,no vomiting, no fever. In the ER he was noted to have elevated liver enzymes. Abdominl ultrasound and MRCP revealed normal CBD. Today he feels better, denies abdominal pain.His total bilirubin is trending upward.He continues to have no abdominal pain. - Past Medical History Cardio/Vascular: Yes: CAD (s.p stenting), HTN, Hyperlipdemia Gastrointestinal: Yes: GERD Renal/: Yes: Cancer (bladder) Endocrine: Yes: Diabetes Mellitus - Alcohol/Substance Use Hx Alcohol Use: No - Smoking History Smoking history: Former smoker Have you smoked in the past 12 months: Yes If you are a former smoker, when did you quit?: 3 years ago Home Medications - Allergies Allergies/Adverse Reactions: Allergies Allergy/AdvReac Type Severity Reaction Status Date / Time No Known Allergies Allergy Verified 12/09/17 12:39 - Home Medications Home Medications: Ambulatory Orders Aspirin [ASA -] 81 mg PO DAILY 03/02/16 Atorvastatin Ca [Lipitor] 40 mg PO HS 03/02/16 Carvedilol 25 mg PO BID 03/02/16 Fenofibrate [Lofibra] 160 mg PO DAILY 03/02/16 Glipizide Xl [Glucotrol Xl -] 10 mg PO DAILY@0700 03/02/16 Insulin Glulisine [Apidra Solostar] 100 unit SQ ASDIR 03/02/16 Linagliptin/Metformin HCl [Jentadueto 2.5 mg-1000 mg Tab] 1 each PO DAILY Lisinopril 5 mg PO DAILY 03/02/16 Omeprazole 40 mg PO DAILY 03/02/16 Prasugrel HCl [Effient] 5 mg PO DAILY 03/02/16 Tamsulosin HCl 0.4 mg PO DAILY 03/02/16 Isosorbide Mononitrate [Imdur -] 30 mg PO DAILY #30 tab.sr.24h 05/06/17 Ranolazine [Ranexa] 500 mg PO BID #60 tab.er.12h 05/06/17 Review of Systems - Review of Systems Constitutional: denies: Fever Eyes: denies: Blurred Vision HENT: denies: Difficult Swallowing, Throat Pain Cardiovascular: denies: Chest Pain Respiratory: denies: Cough Gastrointestinal: denies: Abdominal Pain, Constipation, Diarrhea, Dysphagia, Indigestion, Melena, Vomiting Physical Exam-GI Vital Signs: Vital Signs Temperature 97.6 F 12/10/17 06:00 Pulse Rate 85 12/10/17 06:00 Respiratory Rate 20 12/10/17 06:00 Blood Pressure 92/60 12/10/17 06:00 O2 Sat by Pulse Oximetry (%) 97 12/09/17 21:10 Constitutional: Yes: Well Nourished Eyes: Yes: Conjunctiva Clear HENT: Yes: Atraumatic, Tonsillar Exudate Cardiovascular: Yes: Regular Rate and Rhythm Respiratory: Yes: CTA Bilaterally ...Palpate: Yes: Soft. No: Firm/Rigid, Guarding, Hepatomegaly, Mass, Pulsatile Mass, Splenomegaly, Tenderness Labs: CBC, BMP 12/10/17 08:00 12/10/17 08:00 INR, PTT INR 1.13 (0.83-1.09) H 12/09/17 17:25 Hepatic Panel Total Bilirubin 4.0 mg/dL (0.2-1.0) H 12/10/17 08:00 AST 329 U/L (15-37) H D 12/10/17 08:00 ALT 439 U/L (12-78) H D 12/10/17 08:00 Alkaline Phosphatase 126 U/L (45-117) H D 12/10/17 08:00 Albumin 3.3 g/dl (3.4-5.0) L 12/10/17 08:00 Problem List - Problems (1) Elevated liver enzymes Assessment/Plan: most likely secondary to drug hepatotoxicity R> d/c statin, fenofibrate and tamsulosin continue to trend lfts advance diet Code(s): R74.8 - ABNORMAL LEVELS OF OTHER SERUM ENZYMES (2) Cholelithiasis Code(s): K80.20 - CALCULUS OF GALLBLADDER W/O CHOLECYSTITIS W/O OBSTRUCTION Qualifiers: Cholelithiasis location: gallbladder Cholecystitis presence: with cholecystitis Cholecystitis acuity: acute and chronic Biliary obstruction: without biliary obstruction Qualified Code(s): K80.12 - Calculus of gallbladder with acute and chronic cholecystitis without obstruction (3) Epigastric abdominal pain Assessment/Plan: r/o peptic ulcer disease, doubt cholecytitis in the absence fever,wbc R> clear liquids Protonix 40mg bid Mylanta tid Code(s): R10.13 - EPIGASTRIC PAIN
--- NOTE | 2017-12-10 17:21 | PN ---
Progress Note (short form) - Note Progress Note: ID Consult dictated + BC likely contaminant Await final identification No specific treatment advised
--- NOTE | 2017-12-10 18:16 | CONS ---
DATE OF CONSULTATION: DATE OF DICTATION: 12/10/2017 HISTORY OF PRESENT ILLNESS: The patient is a 67-year-old male with a history of diabetes mellitus, transitional cell carcinoma of the bladder and coronary artery disease, evaluated for positive blood culture. He was admitted to the hospital with a two-day history of epigastric pain. A sonogram showed gallbladder wall thickening suggestive of possible chronic cholecystitis. An MRCP was performed which showed cholelithiasis, gallbladder wall thickening and numerous intramural cysts, suggesting chronic cholecystitis. There was no MR evidence of acute cholecystitis. There was no biliary duct dilatation or pancreatic duct dilatation noted. No choledocholithiasis. Blood cultures obtained on admission are positive in one out of four bottles for gram-positive rods. The patient symptomatically improved. He has no complaints of abdominal pain at the present time. He was started on a liquid diet. He denies any fever or chills. His white blood cell count is normal. PAST MEDICAL HISTORY: Positive for transitional cell carcinoma of the bladder, BPH, diabetes mellitus, coronary artery disease, congestive heart failure. ALLERGIES: No known allergies. MEDICATIONS: Aspirin, Lipitor, Glucotrol, metformin, lisinopril, omeprazole, Flomax and Imdur. SOCIAL HISTORY: He is a former smoker. LAB DATA: White count 4.0, hematocrit 37.7, platelet count 151, BUN 12, creatinine 0.9. Total bilirubin 4.0, alkaline phosphatase 126, AST is 329, ALT is 439. PHYSICAL EXAMINATION: General: He is awake and alert. He is ambulatory, in no acute distress and appears non-toxic. Vital Signs: Temperature 97.8, pulse 76 and regular, blood pressure 93/50, respirations 20 per minute. HEENT:: Sclerae anicteric. Heart: Heart sounds S1, S2. Lungs: Clear. Abdomen: Soft. No epigastric or right upper quadrant tenderness. Extremities: Negative for edema. IMPRESSION: Positive blood culture likely represents contamination. PLAN: Await final identification of blood isolate. No specific treatment advised at this time. Further workup of chronic cholecystitis as per GI. Thank you for the kind referral. MALCOLM JEWELL M.D. [id number]
[2017-12-10] MEDS: METOCLOPRAMIDE HCL 10 MG TABLET (FP) PO SCH (18:51)
--- NOTE | 2017-12-10 19:04 | EKG ---
Test Reason : Blood Pressure : / mmHG Vent. Rate : 095 BPM Atrial Rate : 095 BPM P-R Int : 164 ms QRS Dur : 084 ms QT Int : 354 ms P-R-T Axes : 050 -08 075 degrees QTc Int : 444 ms NORMAL SINUS RHYTHM LOW VOLTAGE QRS POSSIBLE INFERIOR INFARCT (CITED ON OR BEFORE 31-AUG-2004) ABNORMAL ECG WHEN COMPARED WITH ECG OF 06-MAY-2017 21:03, NO SIGNIFICANT CHANGE WAS FOUND Confirmed by MD SHANAE, MINGO ([id number]) on 12/10/2017 7:03:44 PM Referred By: Confirmed By:MINGO JOLLY MD
[2017-12-10] MEDS: PANTOPRAZOLE 40 MG TABLET (FP) PO SCH (22:10)
[2017-12-11] MEDS: D5-1/2NS+20 MEQ KCL - 20 MEQ/1,000 ML INFUS.BAG IV SCH (04:50)
[2017-12-11] MEDS: METOCLOPRAMIDE HCL 10 MG TABLET (FP) PO SCH ×3 (06:36→16:14)
[2017-12-11] MEDS: INSULIN SLIDING SCALE (NOVOLOG) 1 VIAL SQ SCH ×4 (06:36→22:08)
[2017-12-11 09:03] LABS: BASO % 0.7 % (0-2.0); EOS % 2.2 % (0-4.5); HEMATOCRIT 39.2 % (35.4-49); HEMOGLOBIN 13.1 GM/dL (11.7-16.9); LYMPH % 20.2 % (8-40); MCH 23.6 pg (25.7-33.7); MCHC 33.5 g/dl (32.0-35.9); MEAN CELL VOLUME 70.4 fl (80-96); MEAN PLT VOLUME 9.2 fl (7.5-11.1); MONO % 9.6 % (3.8-10.2); NEUT % 67.3 % (42.8-82.8); PLATELET COUNT 176 K/MM3 (134-434); RBC 5.56 M/mm3 (4.00-5.60); RDW 17.5 % (11.9-15.9); WHITE BLOOD COUNT 4.1 K/mm3 (4.0-10.0)
[2017-12-11 09:29] LABS: CHLORIDE 106 mmol/L (98-107); POTASSIUM 4.4 mmol/L (3.5-5.1); SODIUM 139 mmol/L (136-145)
[2017-12-11] MEDS: ISOSORBIDE MONONITRATE 30 MG TAB.SR.24H (FP) PO SCH (09:36)
[2017-12-11] MEDS: LISINOPRIL 5 MG TABLET (FP) PO SCH (09:36)
[2017-12-11] MEDS: PANTOPRAZOLE 40 MG TABLET (FP) PO SCH ×2 (09:36→22:26)
[2017-12-11] MEDS: RANOLAZINE E.R. 500 MG TABLET (FP) PO SCH ×2 (09:37→22:26)
[2017-12-11] MEDS: HEPARIN NA (PORCINE) 5,000 UNITS/ML 1ML VIAL SQ SCH ×3 (09:37→21:52)
[2017-12-11] MEDS: CARVEDILOL 25 MG TABLET (FP) PO SCH ×2 (09:37→22:26)
[2017-12-11 09:43] LABS: ALBUMIN 3.4 g/dl (3.4-5.0); ALK PHOS 140 U/L (45-117); ANION GAP 7 (8-16); BILIRUBIN,TOTAL 2.9 mg/dL (0.2-1.0); BLOOD UREA NITROGEN 9 mg/dL (7-18); CALCIUM 8.6 mg/dL (8.5-10.1); CO2 26 mmol/L (21-32); GLUCOSE,RANDOM 143 mg/dL (74-106); SGOT/AST 228 U/L (15-37); TOT PROT 6.8 g/dl (6.4-8.2)
--- NOTE | 2017-12-11 09:44 | PN ---
Progress Note, Physician History of Present Illness: denies any pain - Current Medication List Current Medications: Active Medications Carvedilol (Coreg -) 25 mg PO BID [facility] Last Admin: 12/11/17 09:37 Dose: 25 mg Heparin Sodium (Porcine) (Heparin -) 5,000 unit SQ BID [facility] Last Admin: 12/11/17 09:42 Dose: Not Given Potassium Chloride/Dextrose/Sod Cl (D5-1/2ns+20 Meq Kcl -) 20 meq in 1,000 mls @ 75 mls/hr IV ASDIR [facility] Last Admin: 12/11/17 04:50 Dose: 75 mls/hr Piperacillin Sod/Tazobactam (Sod 3.375 gm/ Dextrose) 50 mls @ 100 mls/hr IVPB Q8H-IV [facility]; Protocol Piperacillin Sod/Tazobactam (Sod 3.375 gm/ Dextrose) 50 mls @ 100 mls/hr IVPB ONCE ONE; Protocol Stop: 12/11/17 10:14 Insulin Aspart (Novolog Vial Sliding Scale -) 1 vial SQ ACHS [facility]; Protocol Last Admin: 12/11/17 06:36 Dose: Not Given Isosorbide Mononitrate (Imdur -) 30 mg PO DAILY [facility] Last Admin: 12/11/17 09:36 Dose: 30 mg Lisinopril (Prinivil) 5 mg PO DAILY [facility] Last Admin: 12/11/17 09:36 Dose: 5 mg Metoclopramide HCl (Reglan -) 5 mg PO TIDAC [facility] Last Admin: 12/11/17 06:36 Dose: 5 mg Morphine Sulfate (Morphine Sulfate) 1 mg IVPUSH Q4H PRN PRN Reason: PAIN LEVEL 6-10 Pantoprazole Sodium (Protonix -) 40 mg PO BID [facility] Last Admin: 12/11/17 09:36 Dose: 40 mg Ranolazine (Ranexa -) 500 mg PO BID [facility] Last Admin: 12/11/17 09:37 Dose: 500 mg - Objective Vital Signs: Vital Signs Temperature 97.5 F L 12/11/17 08:49 Pulse Rate 67 12/11/17 08:49 Respiratory Rate 18 12/11/17 08:49 Blood Pressure 125/73 12/11/17 08:49 O2 Sat by Pulse Oximetry (%) 97 12/10/17 21:00 Cardiovascular: Yes: S1, S2 Respiratory: Yes: Regular, CTA Bilaterally Gastrointestinal: Yes: Normal Bowel Sounds, Soft. No: Tenderness Labs: CBC, BMP 12/11/17 08:00 INR, PTT INR 1.13 (0.83-1.09) H 12/09/17 17:25 Problem List - Problems (1) Cholecystitis Assessment/Plan: -Cultures Microbiology 12/09/17 18:45 Blood Culture - Preliminary Blood - Peripheral Venous Bacillus Species 12/09/17 18:45 Blood Culture - Preliminary Blood - Peripheral Venous NO GROWTH OBTAINED AFTER 24 HOURS, INCUBATION TO CONTINUE FOR 4 DAYS. -Off IV abx-- -ID Surgical and GI consults noted -Follow Labs -diet per gi -Hida scan Code(s): K81.9 - CHOLECYSTITIS, UNSPECIFIED (2) Abnormal liver enzymes Assessment/Plan: -As Above -D/w Gi --question meds as a cause Code(s): R74.8 - ABNORMAL LEVELS OF OTHER SERUM ENZYMES (3) Cholelithiasis Assessment/Plan: =MRCP--1.8 cm stone a t neck pf gb -surgical consult noted and discussed--for cholecystectomy Code(s): K80.20 - CALCULUS OF GALLBLADDER W/O CHOLECYSTITIS W/O OBSTRUCTION Qualifiers: Cholelithiasis location: gallbladder Cholecystitis presence: with cholecystitis Cholecystitis acuity: acute and chronic Biliary obstruction: without biliary obstruction Qualified Code(s): K80.12 - Calculus of gallbladder with acute and chronic cholecystitis without obstruction (4) Diabetes Assessment/Plan: -Hold meds since npo -IVF -BGM Code(s): E11.9 - TYPE 2 DIABETES MELLITUS WITHOUT COMPLICATIONS Qualifiers: Diabetes mellitus type: type 2 Diabetes mellitus intermediate insulin use: with intermediate use (5) Liver lesion Assessment/Plan: -MRI--fatty liver Code(s): K76.9 - LIVER DISEASE, UNSPECIFIED (6) CAD (coronary artery disease) Assessment/Plan: --Cradio consult -last ef noted 31% --EKG--NSR inferior q waves -trop negative -no cp or sob -Preop eval Code(s): I25.10 - ATHSCL HEART DISEASE OF [place] CORONARY ARTERY W/O ANG PCTRS Qualifiers: Coronary Disease-Associated Artery/Lesion type: [place] artery [place] vs. transplanted heart: [place] heart Associated angina: without angina Qualified Code(s): I25.10 - Atherosclerotic heart disease of [place] coronary artery without angina pectoris (7) Bladder cancer Assessment/Plan: in Remission -ua Code(s): C67.9 - MALIGNANT NEOPLASM OF BLADDER, UNSPECIFIED
[2017-12-11 09:45] LABS: SGPT/ALT 464 U/L (12-78)
[2017-12-11] MEDS ORDERED: PIPERACILLIN/TAZOB 3.375 GM 3.375 GM in DEXTROSE 5%-WATER - 50 ML IVPB ONE (09:45)
--- NOTE | 2017-12-11 11:05 | PN ---
Progress Note, Physician History of Present Illness: Awake, alert Ambulatory No c/o abdominal pain No fever/ chills Tolerated solid diet BC 1/ bottles GPR LFTs improving - Current Medication List Current Medications: Active Medications Carvedilol (Coreg -) 25 mg PO BID [facility] Last Admin: 12/11/17 09:37 Dose: 25 mg Heparin Sodium (Porcine) (Heparin -) 5,000 unit SQ BID [facility] Last Admin: 12/11/17 09:42 Dose: Not Given Potassium Chloride/Dextrose/Sod Cl (D5-1/2ns+20 Meq Kcl -) 20 meq in 1,000 mls @ 75 mls/hr IV ASDIR [facility] Last Admin: 12/11/17 04:50 Dose: 75 mls/hr Piperacillin Sod/Tazobactam (Sod 3.375 gm/ Dextrose) 50 mls @ 100 mls/hr IVPB Q8H-IV [facility]; Protocol Insulin Aspart (Novolog Vial Sliding Scale -) 1 vial SQ ACHS [facility]; Protocol Last Admin: 12/11/17 06:36 Dose: Not Given Isosorbide Mononitrate (Imdur -) 30 mg PO DAILY [facility] Last Admin: 12/11/17 09:36 Dose: 30 mg Lisinopril (Prinivil) 5 mg PO DAILY [facility] Last Admin: 12/11/17 09:36 Dose: 5 mg Metoclopramide HCl (Reglan -) 5 mg PO TIDAC [facility] Last Admin: 12/11/17 06:36 Dose: 5 mg Morphine Sulfate (Morphine Sulfate) 1 mg IVPUSH Q4H PRN PRN Reason: PAIN LEVEL 6-10 Pantoprazole Sodium (Protonix -) 40 mg PO BID [facility] Last Admin: 12/11/17 09:36 Dose: 40 mg Ranolazine (Ranexa -) 500 mg PO BID [facility] Last Admin: 12/11/17 09:37 Dose: 500 mg - Objective Vital Signs: Vital Signs Temperature 97.5 F L 12/11/17 08:49 Pulse Rate 67 12/11/17 08:49 Respiratory Rate 18 12/11/17 08:49 Blood Pressure 125/73 12/11/17 08:49 O2 Sat by Pulse Oximetry (%) 97 12/10/17 21:00 Constitutional: Yes: No Distress Eyes: Yes: Conjunctiva Clear Cardiovascular: Yes: Regular Rate and Rhythm, S1, S2 Respiratory: Yes: CTA Bilaterally Gastrointestinal: Yes: Normal Bowel Sounds, Soft. No: Tenderness Edema: No Labs: CBC, BMP 12/11/17 08:00 12/11/17 08:00 INR, PTT INR 1.13 (0.83-1.09) H 12/09/17 17:25 Assessment/Plan + BC GPR probable contaminant ? Chronic cholecystitis Observe off antibiotics OK for discharge from ID standpoint
[2017-12-11] MEDS ORDERED: INSULIN (NOVOLOG) ASPART 100 UNITS/ML 10ML VIAL ONE (11:07)
[2017-12-11 11:11] LABS: PLATELET ESTIMATE ADEQUATE
[2017-12-11 13:10] LABS: URINE APPEARANCE CLEAR; URINE BILIRUBIN NEGATIVE (<2.0 mg/dL); URINE COLOR YELLOW; URINE GLUCOSE (UA) 1+ (NEGATIVE); URINE KETONE NEGATIVE (NEGATIVE); URINE LEUK ESTERASE NEGATIVE (NEGATIVE); URINE NITRITE NEGATIVE (NEGATIVE); URINE PROTEIN NEGATIVE (NEGATIVE); URINE UROBILINOGEN NEGATIVE mg/dL (0.2-1.0)
--- NOTE | 2017-12-11 18:07 | PN ---
Progress Note, Physician History of Present Illness: Tolerating oral diet, abdominal pain resolved, lisinopril d/juany due to hypotension. - Current Medication List Current Medications: Active Medications Carvedilol (Coreg -) 25 mg PO BID [facility] Last Admin: 12/11/17 09:37 Dose: 25 mg Heparin Sodium (Porcine) (Heparin -) 5,000 unit SQ BID [facility] Last Admin: 12/11/17 09:42 Dose: Not Given Insulin Aspart (Novolog Vial Sliding Scale -) 1 vial SQ [facility]; Protocol Last Admin: 12/11/17 16:13 Dose: Not Given Isosorbide Mononitrate (Imdur -) 30 mg PO DAILY [facility] Last Admin: 12/11/17 09:36 Dose: 30 mg Metoclopramide HCl (Reglan -) 5 mg PO TIDAC [facility] Last Admin: 12/11/17 16:14 Dose: 5 mg Morphine Sulfate (Morphine Sulfate) 1 mg IVPUSH Q4H PRN PRN Reason: PAIN LEVEL 6-10 Pantoprazole Sodium (Protonix -) 40 mg PO BID [facility] Last Admin: 12/11/17 09:36 Dose: 40 mg Ranolazine (Ranexa -) 500 mg PO BID [facility] Last Admin: 12/11/17 09:37 Dose: 500 mg - Objective Vital Signs: Vital Signs Temperature 97.5 F L 12/11/17 13:50 Pulse Rate 86 12/11/17 13:50 Respiratory Rate 18 12/11/17 13:50 Blood Pressure 98/50 12/11/17 15:08 O2 Sat by Pulse Oximetry (%) 98 12/11/17 09:00 Constitutional: Yes: No Distress, Calm Neck: Yes: Supple Cardiovascular: Yes: Regular Rate and Rhythm Respiratory: Yes: Regular, CTA Bilaterally Gastrointestinal: Yes: Normal Bowel Sounds, Soft Edema: No Labs: CBC, BMP 12/11/17 08:00 12/11/17 08:00 INR, PTT INR 1.13 (0.83-1.09) H 12/09/17 17:25 Problem List - Problems (1) Ischemic cardiomyopathy Code(s): I25.5 - ISCHEMIC CARDIOMYOPATHY (2) Pre-operative cardiovascular examination Code(s): Z01.810 - ENCOUNTER FOR PREPROCEDURAL CARDIOVASCULAR EXAMINATION (3) Hyperlipidemia associated with type 2 diabetes mellitus Code(s): E11.69 - TYPE 2 DIABETES MELLITUS WITH OTHER SPECIFIED COMPLICATION; E78.5 - HYPERLIPIDEMIA, UNSPECIFIED (4) Hypertensive cardiomyopathy Code(s): I11.9 - HYPERTENSIVE HEART DISEASE WITHOUT HEART FAILURE; I43 - CARDIOMYOPATHY IN DISEASES CLASSIFIED ELSEWHERE Qualifiers: Heart failure presence: without heart failure Qualified Code(s): I11.9 - Hypertensive heart disease without heart failure; I43 - Cardiomyopathy in diseases classified elsewhere (5) Abnormal liver enzymes Code(s): R74.8 - ABNORMAL LEVELS OF OTHER SERUM ENZYMES (6) CAD (coronary artery disease) Code(s): I25.10 - ATHSCL HEART DISEASE OF [place] CORONARY ARTERY W/O ANG PCTRS Qualifiers: Coronary Disease-Associated Artery/Lesion type: [place] artery [place] vs. transplanted heart: [place] heart Associated angina: without angina Qualified Code(s): I25.10 - Atherosclerotic heart disease of [place] coronary artery without angina pectoris (7) Cholelithiasis Code(s): K80.20 - CALCULUS OF GALLBLADDER W/O CHOLECYSTITIS W/O OBSTRUCTION Qualifiers: Cholelithiasis location: gallbladder Cholecystitis presence: with cholecystitis Cholecystitis acuity: acute and chronic Biliary obstruction: without biliary obstruction Qualified Code(s): K80.12 - Calculus of gallbladder with acute and chronic cholecystitis without obstruction (8) Chronic cholecystitis Code(s): K81.1 - CHRONIC CHOLECYSTITIS (9) Diabetes Code(s): E11.9 - TYPE 2 DIABETES MELLITUS WITHOUT COMPLICATIONS Qualifiers: Diabetes mellitus type: type 2 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 Acute on chronic cholecystitis 2. Elevated liver enzymes due to drug hepatotoxicity 3. Pre-operative cardiovascular evaluation pre-laparoscopic cholecystectomy 4. CAD s/p PR, multivessel PCI 5. Ischemic cardiomyopathy 6. HTN/HCVD 7. Type 2 DM 8. Hyperlipidemia 9. PAD P:1. Given recent LHC findings and no symptoms of acute coronary syndrome, decompensated CHF or malignant arrhythmia, may proceed with lap cholecystectomy from CV-standpoint w/o further testing 2. Observe off abx, trend LFTs 3. ASA and Effient held pre-op and resume once post-op hemostasis achieved, hold Lipitor 40 qhs, fenofibrate 160 qd pending LFT resolution, continue carvedilol 25 bid, Imdur 30 qd and Ranexa 500 bid, ideally resume lisinopril 5 q as hemodynamics tolerate. Patient's last dose of Effient was 3 days ago and should wait 7 days off antiplatelet agent for surgery 4. DVT and GI prophylaxis
[2017-12-11] MEDS: PIPERACILLIN/TAZOB 3.375 GM 3.375 GM in DEXTROSE 5%-WATER - 50 ML IVPB SCH ×3 (19:31→20:30)
[2017-12-11] MEDS ORDERED: PT OWN MED DRAWER 7, Y5N ONE (22:25)
[2017-12-12] MEDS: METOCLOPRAMIDE HCL 10 MG TABLET (FP) PO SCH ×2 (06:08→11:54)
--- NOTE | 2017-12-12 06:34 | PN ---
Progress Note, Physician Chief Complaint: Denies pain - Current Medication List Current Medications: Active Medications Carvedilol (Coreg -) 25 mg PO BID [facility] Last Admin: 12/11/17 22:26 Dose: Not Given Heparin Sodium (Porcine) (Heparin -) 5,000 unit SQ BID [facility] Last Admin: 12/11/17 21:52 Dose: Not Given Insulin Aspart (Novolog Vial Sliding Scale -) 1 vial SQ [facility]; Protocol Last Admin: 12/11/17 22:08 Dose: Not Given Isosorbide Mononitrate (Imdur -) 30 mg PO DAILY [facility] Last Admin: 12/11/17 09:36 Dose: 30 mg Metoclopramide HCl (Reglan -) 5 mg PO TIDAC [facility] Last Admin: 12/12/17 06:08 Dose: Not Given Morphine Sulfate (Morphine Sulfate) 1 mg IVPUSH Q4H PRN PRN Reason: PAIN LEVEL 6-10 Pantoprazole Sodium (Protonix -) 40 mg PO BID [facility] Last Admin: 12/11/17 22:26 Dose: 40 mg Ranolazine (Ranexa -) 500 mg PO BID [facility] Last Admin: 12/11/17 22:26 Dose: 500 mg - Objective Vital Signs: Vital Signs Temperature 98.1 F 12/12/17 02:00 Pulse Rate 94 H 12/12/17 02:00 Respiratory Rate 20 12/12/17 02:00 Blood Pressure 105/57 12/12/17 02:00 O2 Sat by Pulse Oximetry (%) 98 12/11/17 21:00 Labs: CBC, BMP 12/11/17 08:00 12/11/17 08:00 INR, PTT INR 1.13 (0.83-1.09) H 12/09/17 17:25 Problem List - Problems (1) Cholecystitis Code(s): K81.9 - CHOLECYSTITIS, UNSPECIFIED (2) Chronic cholecystitis Code(s): K81.1 - CHRONIC CHOLECYSTITIS Assessment/Plan LFTs remain elevated Ptient is asymptomatic and PE benign no need for acute surgical intervention Patient would likely benefit from elective cholecystectomy. Will discuss with GI and medicine
[2017-12-12] MEDS: INSULIN SLIDING SCALE (NOVOLOG) 1 VIAL SQ SCH ×2 (06:37→11:54)
[2017-12-12 09:18] LABS: ALBUMIN 3.5 g/dl (3.4-5.0); ANION GAP 7 (8-16); BLOOD UREA NITROGEN 13 mg/dL (7-18); CALCIUM 8.7 mg/dL (8.5-10.1); CHLORIDE 107 mmol/L (98-107); CO2 27 mmol/L (21-32); GLUCOSE,RANDOM 175 mg/dL (74-106); POTASSIUM 4.4 mmol/L (3.5-5.1); SGPT/ALT 361 U/L (12-78); SODIUM 141 mmol/L (136-145)
[2017-12-12 09:21] LABS: ALK PHOS 137 U/L (45-117); BILIRUBIN,TOTAL 1.2 mg/dL (0.2-1.0); SGOT/AST 110 U/L (15-37)
[2017-12-12 09:39] VITALS: TEMP 98
--- NOTE | 2017-12-12 10:24 | PN ---
Progress Note, Physician History of Present Illness: Tolerating oral diet, abdominal pain resolved, lisinopril d/juany due to hypotension. Denies chest pain or dyspnea. - Current Medication List Current Medications: Active Medications Carvedilol (Coreg -) 25 mg PO BID [facility] Last Admin: 12/11/17 22:26 Dose: Not Given Heparin Sodium (Porcine) (Heparin -) 5,000 unit SQ BID [facility] Last Admin: 12/11/17 21:52 Dose: Not Given Insulin Aspart (Novolog Vial Sliding Scale -) 1 vial SQ [facility]; Protocol Last Admin: 12/12/17 06:37 Dose: Not Given Isosorbide Mononitrate (Imdur -) 30 mg PO DAILY [facility] Last Admin: 12/11/17 09:36 Dose: 30 mg Metoclopramide HCl (Reglan -) 5 mg PO TIDAC [facility] Last Admin: 12/12/17 06:08 Dose: Not Given Morphine Sulfate (Morphine Sulfate) 1 mg IVPUSH Q4H PRN PRN Reason: PAIN LEVEL 6-10 Pantoprazole Sodium (Protonix -) 40 mg PO BID [facility] Last Admin: 12/11/17 22:26 Dose: 40 mg Ranolazine (Ranexa -) 500 mg PO BID [facility] Last Admin: 12/11/17 22:26 Dose: 500 mg - Objective Vital Signs: Vital Signs Temperature 98 F 12/12/17 09:00 Pulse Rate 80 12/12/17 09:00 Respiratory Rate 20 12/12/17 09:00 Blood Pressure 130/80 12/12/17 09:00 O2 Sat by Pulse Oximetry (%) 98 12/12/17 09:00 Constitutional: Yes: No Distress, Calm Neck: Yes: Supple Cardiovascular: Yes: Regular Rate and Rhythm Respiratory: Yes: Regular, CTA Bilaterally Gastrointestinal: Yes: Normal Bowel Sounds, Soft Edema: No Labs: CBC, BMP 12/11/17 08:00 12/12/17 08:35 INR, PTT INR 1.13 (0.83-1.09) H 12/09/17 17:25 Problem List - Problems (1) Ischemic cardiomyopathy Code(s): I25.5 - ISCHEMIC CARDIOMYOPATHY (2) Pre-operative cardiovascular examination Code(s): Z01.810 - ENCOUNTER FOR PREPROCEDURAL CARDIOVASCULAR EXAMINATION (3) Hyperlipidemia associated with type 2 diabetes mellitus Code(s): E11.69 - TYPE 2 DIABETES MELLITUS WITH OTHER SPECIFIED COMPLICATION; E78.5 - HYPERLIPIDEMIA, UNSPECIFIED (4) Hypertensive cardiomyopathy Code(s): I11.9 - HYPERTENSIVE HEART DISEASE WITHOUT HEART FAILURE; I43 - CARDIOMYOPATHY IN DISEASES CLASSIFIED ELSEWHERE Qualifiers: Heart failure presence: without heart failure Qualified Code(s): I11.9 - Hypertensive heart disease without heart failure; I43 - Cardiomyopathy in diseases classified elsewhere (5) Abnormal liver enzymes Code(s): R74.8 - ABNORMAL LEVELS OF OTHER SERUM ENZYMES (6) CAD (coronary artery disease) Code(s): I25.10 - ATHSCL HEART DISEASE OF [place] CORONARY ARTERY W/O ANG PCTRS Qualifiers: Coronary Disease-Associated Artery/Lesion type: [place] artery [place] vs. transplanted heart: [place] heart Associated angina: without angina Qualified Code(s): I25.10 - Atherosclerotic heart disease of [place] coronary artery without angina pectoris (7) Cholelithiasis Code(s): K80.20 - CALCULUS OF GALLBLADDER W/O CHOLECYSTITIS W/O OBSTRUCTION Qualifiers: Cholelithiasis location: gallbladder Cholecystitis presence: with cholecystitis Cholecystitis acuity: acute and chronic Biliary obstruction: without biliary obstruction Qualified Code(s): K80.12 - Calculus of gallbladder with acute and chronic cholecystitis without obstruction (8) Chronic cholecystitis Code(s): K81.1 - CHRONIC CHOLECYSTITIS (9) Diabetes Code(s): E11.9 - TYPE 2 DIABETES MELLITUS WITHOUT COMPLICATIONS Qualifiers: Diabetes mellitus type: type 2 Diabetes mellitus skilled nursing insulin use: with skilled nursing use (10) S/P coronary artery stent placement Code(s): Z95.5 - PRESENCE OF CORONARY ANGIOPLASTY IMPLANT AND GRAFT Assessment/Plan 01/03/2017 Cardiac MRI LVEF 40% with anteroseptal and anterior infarcts 11/29/2016 LHC: LVEF 35%, patent LADstent, occluded LCx-OM1 not amenable to intervention, and patent prox-mid RCA stent 03/01/2016 Echo: Prob preserved LV fxn with anterior HK, mild MR, TR 03/01/2016 P-Myoview: Large lateral, inferolateral infarct with small zone periinfarct ischemia, LVEF 31% 1. Acute on chronic cholecystitis 2. Elevated liver enzymes due to drug hepatotoxicity improving 3. Pre-operative cardiovascular evaluation pre-laparoscopic cholecystectomy 4. CAD s/p [place], multivessel PCI 5. Ischemic cardiomyopathy 6. HTN/HCVD 7. Type 2 DM 8. Hyperlipidemia 9. PAD P:1. Given recent LHC findings and no symptoms of acute coronary syndrome, decompensated CHF or malignant arrhythmia, may proceed with lap cholecystectomy from CV-standpoint w/o further testing 2. Observe off abx, trend LFTs 3. Resume ASA 81 qd and Effient 5 qd if surgery is not planned, hold Lipitor 40 qhs, fenofibrate 160 qd pending LFT resolution, continue carvedilol 25 bid and Ranexa 500 bid, ideally resume lisinopril 5 qd and d/c Imdur as he does not report angina as hemodynamics tolerate. Patient hould wait 7 days off antiplatelet agent for elective surgery 4. DVT and GI prophylaxis 5. F/u HIDA scan and echo results
--- NOTE | 2017-12-12 10:28 | PN ---
Progress Note, Physician Chief Complaint: Abdominal pain Chronic cholecystitis History of Present Illness: No abdominal pain at this time Wants to go home Self ambulatory Tolerating PO intake - Current Medication List Current Medications: Active Medications Carvedilol (Coreg -) 25 mg PO BID [facility] Last Admin: 12/11/17 22:26 Dose: Not Given Heparin Sodium (Porcine) (Heparin -) 5,000 unit SQ BID [facility] Last Admin: 12/11/17 21:52 Dose: Not Given Insulin Aspart (Novolog Vial Sliding Scale -) 1 vial SQ [facility]; Protocol Last Admin: 12/12/17 06:37 Dose: Not Given Isosorbide Mononitrate (Imdur -) 30 mg PO DAILY [facility] Last Admin: 12/11/17 09:36 Dose: 30 mg Metoclopramide HCl (Reglan -) 5 mg PO TIDAC [facility] Last Admin: 12/12/17 06:08 Dose: Not Given Morphine Sulfate (Morphine Sulfate) 1 mg IVPUSH Q4H PRN PRN Reason: PAIN LEVEL 6-10 Pantoprazole Sodium (Protonix -) 40 mg PO BID [facility] Last Admin: 12/11/17 22:26 Dose: 40 mg Ranolazine (Ranexa -) 500 mg PO BID [facility] Last Admin: 12/11/17 22:26 Dose: 500 mg - Objective Vital Signs: Vital Signs Temperature 98 F 12/12/17 09:00 Pulse Rate 80 12/12/17 09:00 Respiratory Rate 20 12/12/17 09:00 Blood Pressure 130/80 12/12/17 09:00 O2 Sat by Pulse Oximetry (%) 98 12/12/17 09:00 Constitutional: Yes: Well Nourished, No Distress, Calm Cardiovascular: Yes: Regular Rate and Rhythm Respiratory: Yes: Regular Gastrointestinal: Yes: Normal Bowel Sounds, Soft Genitourinary: Yes: WNL Musculoskeletal: Yes: WNL Extremities: Yes: WNL Edema: No Peripheral Pulses WNL: Yes Neurological: Yes: Alert, Oriented Psychiatric: Yes: Alert, Oriented Labs: CBC, BMP 12/11/17 08:00 12/12/17 08:35 INR, PTT INR 1.13 (0.83-1.09) H 12/09/17 17:25 Problem List - Problems (1) Abnormal liver enzymes Assessment/Plan: -Statin, fenofibrate and tamsulosin on hold -Enzymes trending down -Okay with GI and Surgery to come back for elective choleycystectomy -HIDA pending Code(s): R74.8 - ABNORMAL LEVELS OF OTHER SERUM ENZYMES (2) CAD (coronary artery disease) Assessment/Plan: -Aspirin,BB -Seen by Cardiology -statin,fenofibrate on hold Code(s): I25.10 - ATHSCL HEART DISEASE OF [place] CORONARY ARTERY W/O ANG PCTRS Qualifiers: Coronary Disease-Associated Artery/Lesion type: [place] artery [place] vs. transplanted heart: [place] heart Associated angina: without angina Qualified Code(s): I25.10 - Atherosclerotic heart disease of [place] coronary artery without angina pectoris (3) Cholelithiasis Assessment/Plan: -On MRCP -Pt to return for elective cholecystectomy Code(s): K80.20 - CALCULUS OF GALLBLADDER W/O CHOLECYSTITIS W/O OBSTRUCTION Qualifiers: Cholelithiasis location: gallbladder Cholecystitis presence: with cholecystitis Cholecystitis acuity: acute and chronic Biliary obstruction: without biliary obstruction Qualified Code(s): K80.12 - Calculus of gallbladder with acute and chronic cholecystitis without obstruction (4) Chronic cholecystitis Assessment/Plan: -Okay with GI and Surgery to come back for elective choleycystectomy -HIDA pending -Pt to return for elective cholecystectomy Code(s): K81.1 - CHRONIC CHOLECYSTITIS (5) Diabetes Assessment/Plan: -A1c at 7.3 -BGM AC HD -Diabetic diet -Insulin novolog as per sliding scale -Would dc glipizide due to elevated liver enzymes -Ok to take metformin and Linagliptin Code(s): E11.9 - TYPE 2 DIABETES MELLITUS WITHOUT COMPLICATIONS Qualifiers: Diabetes mellitus type: type 2 Diabetes mellitus fci insulin use: with fci use Assessment/Plan see problem list
--- NOTE | 2017-12-12 10:32 | DS ---
Physical Examination Vital Signs: Vital Signs Temperature 98 F 12/12/17 09:00 Pulse Rate 80 12/12/17 09:00 Respiratory Rate 20 12/12/17 09:00 Blood Pressure 130/80 12/12/17 09:00 O2 Sat by Pulse Oximetry (%) 98 12/12/17 09:00 Findings/Remarks: 67-year-old male with a past medical history of MS s/p stents, NIDDM, HTN, and HLD was sent in by Dr. Brown for evaluation. The patient presents with an acute onset of epigastric pain for the past 2 days, aggravated following eating or drinking, without relief. The patient reports associated concern of nausea denies vomiting. Denies fever, chills, cough or a headache. Denies chest pain or shortness of breath. Denies dysuria, hematuria, frequency or urgency to urinate. Patient feels better at this time Constitutional: Yes: Well Nourished, No Distress, Calm Cardiovascular: Yes: Regular Rate and Rhythm Respiratory: Yes: Regular Gastrointestinal: Yes: Normal Bowel Sounds, Soft, Abdomen, Obese Musculoskeletal: Yes: WNL Extremities: Yes: WNL Edema: No Peripheral Pulses WNL: Yes Neurological: Yes: Alert, Oriented Psychiatric: Yes: Alert, Oriented Labs: CBC, BMP 12/11/17 08:00 12/12/17 08:35 Discharge Summary Reason For Visit: CHRONIC CHOLECYSTITIS Current Active Problems Abnormal liver enzymes (Acute) CAD (coronary artery disease) (Acute) Cholecystitis (Acute) Cholelithiasis (Acute) Chronic cholecystitis (Acute) Diabetes (Acute) Elevated liver enzymes (Acute) Epigastric abdominal pain (Acute) Hyperlipidemia associated with type 2 diabetes mellitus (Acute) Hypertensive cardiomyopathy (Acute) Ischemic cardiomyopathy (Acute) Liver lesion (Acute) Pre-operative cardiovascular examination (Acute) S/P coronary artery stent placement (Acute) Hospital Course: MRCP: 1. Cholelithiasis and gallbladder wall thickening with numerous intramural cysts suggesting chronic cholecystitis and adenomyomatosis. No MR evidence of acute cholecystitis. Please correlate clinically. 2. No biliary ductal dilatation or pancreatic ductal dilatation. No evidence of choledocholithiasis or acute pancreatitis. 3. Unchanged size of an indeterminant 1.2 cm right renal lesion as described above is not included in the [id number] on all postcontrast sequences and therefore cannot be completely characterized. However, suggestion of mural wall enhancement and therefore neoplasm is not excluded. Nonemergent urologic consultation and dedicated contrast-enhanced MRI of the kidneys is recommended. 4. Hepatic steatosis. No evidence of hepatic mass. As per Surgery, no acute surgical intervention recommended at this time. Follow up with PCP, GI, Surgery and Urology Condition: Stable - Instructions Referrals: Aleja Brown MD [Primary Care Provider] - Marvin Medrano [Staff Physician] - Disposition: HOME - Home Medications Comprehensive Discharge Medication List: Ambulatory Orders Aspirin [ASA -] 81 mg PO DAILY 03/02/16 Atorvastatin Ca [Lipitor] 40 mg PO HS 03/02/16 Carvedilol 25 mg PO BID 03/02/16 Fenofibrate [Lofibra] 160 mg PO DAILY 03/02/16 Glipizide Xl [Glucotrol Xl -] 10 mg PO DAILY@0700 03/02/16 Insulin Glulisine [Apidra Solostar] 100 unit SQ [facility] 03/02/16 Linagliptin/Metformin HCl [Jentadueto 2.5 mg-1000 mg Tab] 1 each PO DAILY Lisinopril 5 mg PO DAILY 03/02/16 Omeprazole 40 mg PO DAILY 03/02/16 Prasugrel HCl [Effient] 5 mg PO DAILY 03/02/16 Tamsulosin HCl 0.4 mg PO DAILY 03/02/16 Isosorbide Mononitrate [Imdur -] 30 mg PO DAILY #30 tab.sr.24h 05/06/17 Ranolazine [Ranexa] 500 mg PO BID #60 tab.er.12h 05/06/17
[2017-12-12] MEDS: HEPARIN NA (PORCINE) 5,000 UNITS/ML 1ML VIAL SQ SCH (10:45)
[2017-12-12] MEDS: RANOLAZINE E.R. 500 MG TABLET (FP) PO SCH (11:54)
[2017-12-12] MEDS: CARVEDILOL 25 MG TABLET (FP) PO SCH (11:54)
[2017-12-12] MEDS: PANTOPRAZOLE 40 MG TABLET (FP) PO SCH (11:54)
[2017-12-12] MEDS: ISOSORBIDE MONONITRATE 30 MG TAB.SR.24H (FP) PO SCH (11:55)
[2017-12-12 11:57] VITALS: BP 137/91; PULSE 82
[2017-12-12] MEDS ORDERED: LISINOPRIL 5 MG TABLET (FP) PO SCH (14:00)
== END 2017-12-12 11:58 | disposition home or self-care (01) | DRG 446 ==
LOC: JER 12:30 → JERBED 17:54 → J5S 21:15
PROVIDERS: ADMIT Family Medicine; ATTEND Family Medicine
DX: K80.10 Calculus of gallbladder with chronic cholecystitis without obstruction (principal); N40.0 Benign prostatic hyperplasia without lower urinary tract symptoms; E11.9 Type 2 diabetes mellitus without complications; I25.2 Old myocardial infarction; I10 Essential (primary) hypertension; E78.5 Hyperlipidemia, unspecified; I25.10 Atherosclerotic heart disease of native coronary artery without angina pectoris; K21.9 Gastro-esophageal reflux disease without esophagitis; R74.8 Abnormal levels of other serum enzymes; K76.9 Liver disease, unspecified; I25.5 Ischemic cardiomyopathy; I73.9 Peripheral vascular disease, unspecified; I11.9 Hypertensive heart disease without heart failure; K76.0 Fatty (change of) liver, not elsewhere classified; I95.9 Hypotension, unspecified; N28.9 Disorder of kidney and ureter, unspecified; Z85.51 Personal history of malignant neoplasm of bladder; Z95.5 Presence of coronary angioplasty implant and graft; Z87.891 Personal history of nicotine dependence
CPT/HCPCS: 36415; 74182-TC; 76705-TC; 78226-TC; 80053; 80061; 81003; 82150; 82550; 82962; 83036; 83690; 83721; 84484; 85025; 85610; 85730; 86850; 86900; 86901; 87040; 87086; 93005; 93010; 99282-25; A9537; J1644; J7030

== ENCOUNTER 2017-12-14 13:10 | Inpatient (IN) | payer BC ==
[2017-12-13 17:15] VITALS: BMI 28.1
[2017-12-14] MEDS ORDERED: BUPIVACAINE HCL/PF 0.5% (5MG/ML) 10 ML VIAL ONE (13:54)
[2017-12-14] MEDS ORDERED: MIDAZOLAM HCL 2 MG/2 ML SINGLE DOSE VIAL ONE (15:10)
[2017-12-14] MEDS ORDERED: fentaNYL CITRATE 250 MCG/5 ML VIAL ONE ×2 (15:22→16:13)
[2017-12-14] MEDS ORDERED: LIDOCAINE HCL/PF 2% SDV 5ML VIAL ONE (15:22)
[2017-12-14] MEDS ORDERED: PROPOFOL 20 ML ONE (15:22)
[2017-12-14] MEDS ORDERED: ROCURONIUM BROMIDE 50 MG/5 ML VIAL ONE (15:24)
[2017-12-14] MEDS ORDERED: ceFAZolin SODIUM 1 GM VIAL IVPB ONE (15:31)
[2017-12-14] MEDS ORDERED: NEOSTIGMINE METHYLSULFATE 0.5 MG/ML - 10 ML MDV ONE (16:33)
[2017-12-14] MEDS ORDERED: GLYCOPYRROLATE 0.2 MG/1 ML VIAL ONE ×2 (16:33)
--- NOTE | 2017-12-14 16:39 | OP ---
Operative Note - Note: Operative Date: 12/14/17 Pre-Operative Diagnosis: chronic cholecystitis Operation: laparoscopic cholecystectomy Findings: chronic cholecystitis Post-Operative Diagnosis: Same as Pre-op Surgeon: Marvin Medrano Anesthesiologist/[employer]: Roxie Arambula Anesthesia: General Estimated Blood Loss (mls): 10 Operative Report Dictated: Yes
[2017-12-14] MEDS ORDERED: BUPIVACAINE HCL/PF 0.5% (5MG/ML) 10 ML VIAL IJ ONE (16:40)
[2017-12-14] MEDS ORDERED: oxyCODONE HCL 5 MG TABLET PO PRN (16:46)
[2017-12-14] MEDS ORDERED: ONDANSETRON 4 MG/2 ML VIAL IVPUSH PRN (16:46)
[2017-12-14] MEDS ORDERED: PROMETHAZINE HCL 25 MG/1 ML VIAL IVPUSH PRN (16:46)
[2017-12-14] MEDS ORDERED: HYDROmorphone HCL CARPU-JECT 1 MG/1 ML DISP.SYRIN IVPUSH PRN (16:48)
[2017-12-14] MEDS ORDERED: ACETAMINOPHEN WITH CODEINE 300MG/30MG TABLET PO PRN (16:49)
[2017-12-14] MEDS ORDERED: LACTATED RINGERS SOLUTION 1,000 ML IV SCH (17:00)
[2017-12-14] MEDS ORDERED: LACTATED RINGERS SOLUTION 1,000 ML/1,000 ML INFUS.BAG IV SCH (17:00)
[2017-12-14] MEDS ORDERED: INSULIN (NOVOLOG) ASPART 100 UNITS/ML 10ML VIAL ONE (21:10)
[2017-12-14] MEDS: CARVEDILOL 25 MG TABLET (FP) PO SCH (21:41)
[2017-12-14] MEDS: INSULIN SLIDING SCALE (NOVOLOG) 1 VIAL SQ SCH (21:42)
--- NOTE | 2017-12-14 22:44 | OP ---
DATE OF OPERATION: 12/14/2017 PREOPERATIVE DIAGNOSIS: Chronic cholecystitis. POSTOPERATIVE DIAGNOSIS: Chronic cholecystitis. PROCEDURE: Laparoscopic cholecystectomy. SURGEON: Marvin Medrano M.D. PETROLEUM INSPECTOR SUPERVISOR: Estelle Kim COMPLICATIONS: None. BLOOD LOSS: Minimal. SPECIMENS: Gallbladder. DISPOSITION: Patient tolerated procedure well. FINDINGS: Chronic cholecystitis. INDICATION: This is a 67-year-old male with a history of chronic cholecystitis, diabetes, hepatitis and coronary artery disease, who presents with failed liver function and with right upper quadrant pain, and patient was evaluated and found to have cystic duct obstruction. He was discharged due to need for reversal of anticoagulation and found to be clinically stable, and with normal white count. He was scheduled semiurgently for laparoscopic cholecystectomy. DESCRIPTION OF PROCEDURE: In the operating room, he was placed in the supine position. After IV antibiotics, was prepared and draped in the usual sterile fashion. The operation was begun with a periumbilical incision followed through a scalpel. A standard Carpenter approach was used to enter peritoneal cavity. A 12-mm port was introduced and insufflation of pressure to 15 mmHg was accomplished, and then three 5-mm ports were introduced: 1 in the epigastrium, 2 in the right upper quadrant. The patient was then positioned in the reverse Trendelenburg position. The gallbladder was intrahepatic and chronically inflamed and scarred. It was retracted with some difficulty to expose the high gallbladder. Dissection was performed meticulously and slowly using [place] dissector to slowly expose the cystic duct and cystic artery. Cystic artery appeared to be branching to the anterior and posterior branches. They were separately dissected and then ligated with Endoclips and divided with Endoshears. Cystic duct was fully exposed to its entrance into the common bile duct. The critical view of safety was clearly established with the window of view of the liver bed through the triangle of [place], and at this point in time the cystic duct was doubly ligated, endo clipped, and divided with Endoshears. Then gallbladder was then slowly dissected off the liver bed, care taking to avoid injury to the liver or any adjacent structures, particularly given the intrahepatic position. There was minimal bleeding from the liver bed. Bleeding was achieved with cautery. The gallbladder was removed without perforation, placed in an EndoCatch bag, and removed through the umbilical port. The right upper quadrant was irrigated and suctioned, and final check for hemostasis was performed and achieved with cautery. The ports were then removed and the fascia at the umbilical port was closed using 0 Vicryl sutures. The skin was closed with 4-0 Monocryl. Dermabond was applied and the patient then returned to the recovery room awake, alert, in stable condition. He tolerated the procedure well. [place] [id number]
[2017-12-15] MEDS: INSULIN SLIDING SCALE (NOVOLOG) 1 VIAL SQ SCH ×2 (06:48→12:26)
[2017-12-15] MEDS ORDERED: metFORMIN HCL 500 MG TABLET (FP) PO SCH (07:00)
[2017-12-15] MEDS ORDERED: sitaGLIPtin PHOSPHATE 50 MG TABLET PO SCH (07:00)
[2017-12-15 08:02] LABS: BASO % 0.3 % (0-2.0); EOS % 0.1 % (0-4.5); HEMATOCRIT 38.4 % (35.4-49); HEMOGLOBIN 12.8 GM/dL (11.7-16.9); LYMPH % 8.5 % (8-40); MCH 23.8 pg (25.7-33.7); MCHC 33.3 g/dl (32.0-35.9); MEAN CELL VOLUME 71.4 fl (80-96); MEAN PLT VOLUME 8.5 fl (7.5-11.1); MONO % 6.5 % (3.8-10.2); NEUT % 84.6 % (42.8-82.8); PLATELET COUNT 155 K/MM3 (134-434); RBC 5.38 M/mm3 (4.00-5.60); RDW 17.7 % (11.9-15.9); WHITE BLOOD COUNT 8.8 K/mm3 (4.0-10.0)
[2017-12-15 08:33] LABS: ALBUMIN 3.2 g/dl (3.4-5.0); ALK PHOS 104 U/L (45-117); ANION GAP 8 MMOL/L (8-16); BILIRUBIN,TOTAL 0.9 mg/dL (0.2-1.0); BLOOD UREA NITROGEN 21 mg/dL (7-18); CALCIUM 8.2 mg/dL (8.5-10.1); CHLORIDE 101 mmol/L (98-107); CO2 26 mmol/L (21-32); GLUCOSE,RANDOM 129 mg/dL (74-106); POTASSIUM 4.6 mmol/L (3.5-5.1); SGOT/AST 63 U/L (15-37); SODIUM 135 mmol/L (136-145); TOT PROT 6.5 g/dl (6.4-8.2)
[2017-12-15 08:38] LABS: SGPT/ALT 197 U/L (12-78)
--- NOTE | 2017-12-15 08:55 | DS ---
Physical Examination Vital Signs: Vital Signs Temperature 97.6 F 12/15/17 06:00 Pulse Rate 83 12/15/17 06:00 Respiratory Rate 20 12/15/17 06:00 Blood Pressure 140/89 12/15/17 06:00 O2 Sat by Pulse Oximetry (%) 94 L 12/14/17 19:44 Constitutional: Yes: No Distress Eyes: Yes: WNL HENT: Yes: WNL Neck: Yes: WNL Cardiovascular: Yes: WNL Respiratory: Yes: WNL Gastrointestinal: Yes: Tenderness, Rebound, Other Renal/: Yes: WNL Musculoskeletal: Yes: WNL Extremities: Yes: WNL Edema: No Peripheral Pulses WNL: Yes Integumentary: Yes: WNL Wound/Incision: Yes: Clean/Dry Neurological: Yes: WNL ...Motor Strength: WNL Psychiatric: Yes: WNL Labs: CBC, BMP 12/15/17 07:00 12/15/17 07:00 Discharge Summary Reason For Visit: LAPAROSCPIC COLECYSTECTOMY Procedures: Principal: LAP CHOL Hospital Course: TOLERATED PROCEDURE WELL, WILL FOLLOW IF LUNCH TOLERATED CAN DC HOME TODAY RESTART EFFIENT PER CARDIOLOGY Condition: Good - Instructions Diet, Activity, Other Instructions: Discharge Instructions Dear DIMA ANGEL, Post Operative Instructions Physical activity Resume your normal everyday activity as tolerated no heavy lifting or exercise until seen by your surgeon. You may walk unlimited amounts of and climb stairs. You may resume driving the car when you feel safe and comfortable behind the wheel. Wound care If you have a bandage, leave it on, and keep dry for 48 - 72 hours. After that time discard the outer bandage. If there are tapes on the skin under the outer bandage, leave them in place. They will peel off in the next 7 to 10 days. Do Not peel them off. You may shower 2 days after surgery. If there are tapes present on the skin, they can get wet. Diet There are no dietary restrictions. Eat healthy, high-fiber foods. Drink 6 to 8 glasses of liquid each day. This will assist in keeping your bowels are regular. Pain management You may take Tylenol or acetaminophen or Ibuprofen (for example, Motrin, Advil etc.) Any pain prescription medication ordered should be taken as prescribed for moderate to severe pain. Call Dr. Aguilar for any of the following: Severe pain not relieved by medication Fever of 101 or higher Excessive bleeding or drainage on dressing Call the office for a post operative appointment in 7 - 10 days. Disposition: HOME - Home Medications Comprehensive Discharge Medication List: Ambulatory Orders Aspirin [ASA -] 81 mg PO DAILY 03/02/16 Carvedilol 25 mg PO BID 03/02/16 Insulin Glulisine [Apidra Solostar] 100 unit SQ ASDIR 03/02/16 Linagliptin/Metformin HCl [Jentadueto 2.5 mg-1000 mg Tab] 1 each PO DAILY Lisinopril 5 mg PO DAILY 03/02/16 Omeprazole 40 mg PO DAILY 03/02/16 Prasugrel HCl [Effient] 5 mg PO DAILY 03/02/16 Isosorbide Mononitrate [Imdur -] 30 mg PO DAILY #30 tab.sr.24h 05/06/17 Ranolazine [Ranexa] 500 mg PO BID #60 tab.er.12h 05/06/17
[2017-12-15] MEDS: CARVEDILOL 25 MG TABLET (FP) PO SCH (09:27)
[2017-12-15 09:33] VITALS: BP 122/77; PULSE 86; TEMP 97.1
--- NOTE | 2017-12-15 09:44 | PN ---
Progress Note (short form) - Note Progress Note: Anesthesia Post-Op Note Pt s/p lap cholecystectomy on 12/14/17 under [facility]. Pt seen OOB to chair using ISS. Reports pain under control. Denies any N/V. Vital Signs Temperature 97.1 F L 12/15/17 07:00 Pulse Rate 86 12/15/17 07:00 Respiratory Rate 18 12/15/17 07:00 Blood Pressure 122/77 12/15/17 07:00 O2 Sat by Pulse Oximetry (%) 94 L 12/14/17 19:44 Continue present management per surgical team. Bowel regimen while on pain meds. OOB. Encourage ISS.
[2017-12-15] MEDS ORDERED: LISINOPRIL 5 MG TABLET (FP) PO SCH (10:00)
[2017-12-15] MEDS ORDERED: PANTOPRAZOLE 40 MG TABLET (FP) PO SCH (10:00)
[2017-12-15] MEDS ORDERED: PATIENT'S OWN MEDICATION (NON-FORMULARY) (Linagliptin/Metformin Hcl [Jentadueto 2.5 Mg-100 PO SCH (10:00)
[2017-12-15] MEDS ORDERED: ASPIRIN 81 MG CHEWABLE TABLETS PO SCH (10:00)
[2017-12-15] MEDS ORDERED: ISOSORBIDE MONONITRATE 30 MG TAB.SR.24H (FP) PO SCH (10:00)
--- NOTE | 2017-12-15 10:35 | SURG ---
Surgery Financial Services Assistant Note Financial Services Assistant: Roxie Arambula PA-C Date of Service: 12/14/17 Diagnosis: chronic cholecyctitis Procedure: laparoscopic cholecystectomy I was present for the entirety of the operative procedure. For further detail, please refer to operative report. Visit type - Case Type Case Type: ED Admission - Emergency Emergency Visit: Yes ED Registration Date: 12/14/17 Care time: The patient presented to the Emergency Department on the above date and was hospitalized for further evaluation of their emergent condition. - New patient This patient is new to me today: No
[2017-12-15 10:41] LABS: ANISOCYTOSIS 1+; MACROCYTOSIS 0; PLATELET ESTIMATE NORMAL
--- NOTE | 2017-12-16 18:28 | PATH ---
Surgical Pathology Report Patient Name: DIMA ANGEL Med. Rec. #: [id number] /Age/Gender: 1950 (Age: 67) / M Account: [id number] Location: [facility] MED/SURG Taken: 12/14/2017 Received: 12/15/2017 Reported: 12/16/2017 Physicians: Marvin Medrano M.D. Specimen(s) Received GALLBLADDER Clinical History Chronic cholecystitis Final Diagnosis GALLBLADDER, LAPAROSCOPIC CHOLECYSTECTOMY: ACUTE AND CHRONIC CHOLECYSTITIS WITH CHOLELITHIASIS. Electronically Signed Tracy Florez M.D. Gross Description Received in formalin, labeled "gallbladder," is a 7.9 x 3.5 x 3.2 cm. gallbladder with a 0.2 cm. in length portion of cystic duct attached. The outer surface is mosqueda cantrell and varies from smooth to shaggy. The lumen contains green, tenacious bile as well as 2 black, irregular choleliths measuring 1.0 and 2.0 cm in greatest dimension. The mucosa is green with focal thickening of wall and fundus, measuring up to 1.0 cm. in thickness. Wire Spooler sections are submitted in 3 cassettes as follows: 1-cystic duct margin and life assurance representative gallbladder; 2-3- fundus. 12/15/2017 [facility]12/15/2017
== END 2017-12-15 13:25 | disposition home or self-care (01) | DRG 419 ==
LOC: JASU-SURG 13:10 → JSAMEDAYSX 16:43 → J8W 18:45
PROVIDERS: ADMIT Family Medicine; ATTEND Family Medicine
PROC: 0FT44ZZ Resection of Gallbladder, Percutaneous Endoscopic Approach (ICD-10-PCS; principal; 2017-12-14 15:00)
DX: K80.10 Calculus of gallbladder with chronic cholecystitis without obstruction (principal); I25.10 Atherosclerotic heart disease of native coronary artery without angina pectoris; E78.5 Hyperlipidemia, unspecified; K21.9 Gastro-esophageal reflux disease without esophagitis; E11.9 Type 2 diabetes mellitus without complications; I11.9 Hypertensive heart disease without heart failure; Z85.51 Personal history of malignant neoplasm of bladder
CPT/HCPCS: 36415; 80053; 82962; 85025; 88304-TC; 94760

== ENCOUNTER 2019-01-26 10:27 | Inpatient (IN) | payer OTHER, BC ==
[2019-01-26] MEDS ORDERED: SODIUM CHLORIDE 2,803 ML IV ONE (10:47)
--- NOTE | 2019-01-26 10:49 | PDOC ---
History of Present Illness - General Chief Complaint: SIRS, Suspected/Possible Stated Complaint: COLD, SWEATY, VOMITING/WEAK Time Seen by Provider: 01/26/19 10:40 History Source: Patient Exam Limitations: No Limitations - History of Present Illness Initial Comments: Jarred Parsons is a 68 yo Gentleman with a pmh of recent cystosopy at [place] yesterday, bladder cancer on chemo, NM s/p stents, heart failure, NIDDM, HTN, and HLD who was sent into the [facility] er for evaluation by Dr. Brown as he had a suspicion that the patient was uroseptic. The patient has been experiencing generalized weakness, subjective fevers, chills, rigors, body pains, and overall discomfort since his cystoscopic procedure. The patient believes he has an infection from his urologic procedure yesterday. PCP: Dr. Brown - Admit to Dr. Vences Cardiac: Dr. Valles Uro: Dr. Aquino PSH: Stents, cystoscopy Allergies: NKA, NKDA Social Hx: Lives with family, denies current smoking, drinking, or other substance usage. Past History - Past Medical History Allergies/Adverse Reactions: Allergies Allergy/AdvReac Type Severity Reaction Status Date / Time No Known Allergies Allergy Verified 12/14/17 13:48 Home Medications: Ambulatory Orders Aspirin [ASA -] 81 mg PO DAILY 03/02/16 Carvedilol 25 mg PO BID 03/02/16 Insulin Glulisine [Apidra Solostar] 100 unit SQ ASDIR 03/02/16 Linagliptin/Metformin HCl [Jentadueto 2.5 mg-1000 mg Tab] 1 each PO BID Omeprazole 40 mg PO DAILY 03/02/16 Prasugrel HCl [Effient] 5 mg PO DAILY 03/02/16 Ranolazine [Ranexa] 500 mg PO BID #60 tab.er.12h 05/06/17 Ergocalciferol [Vitamin D2] 50,000 unit PO Q7D@1000 01/26/19 Glipizide [Glipizide Xl] 10 mg PO ASDIR 01/26/19 Sacubitril/Valsartan [Entresto 49 mg-51 mg Tablet] 1 each PO BID 01/26/19 Spironolactone [Aldactone] 25 mg PO DAILY 01/26/19 Tamsulosin HCl [Flomax] 0.4 mg PO DAILY 01/26/19 Anemia: No Asthma: No Cancer: Yes (BLADDER) Cardiac Disorders: Yes (NM STENT INSERTION X4 2011) CVA: No COPD: No CHF: No DVT: No Dementia: No Diabetes: Yes (NIDDM) GI Disorders: No Disorders: No HTN: Yes Hypercholesterolemia: Yes Liver Disease: No Seizures: No Thyroid Disease: No - Surgical History Cardiac Surgery: Yes (3 STENTS) - Psycho Social/Smoking Cessation Hx Smoking History: Unknown if ever smoked Have you smoked in the past 12 months: Yes If you are a former smoker, when did you quit?: 3 years ago 'Breaking Loose' booklet given: 03/02/16 Hx Alcohol Use: No Drug/Substance Use Hx: No Substance Use Type: None Cardiac Specific PMH - Complaint Specific PMHX Pacemaker: No Review of Systems - Review of Systems Able to Perform ROS?: Yes Comments:: CONSTITUTIONAL: Present: fever, chills, fatigue EYES: Absent: visual changes ENT: Absent: ear pain, no sore throat CARDIOVASCULAR: Absent: chest pain, no palpitations RESPIRATORY: Absent: cough, no SOB GI: Absent: abdominal pain, no nausea, no vomiting, no constipation, no diarrhea GENITOURINARY: Present: dysuria Absent: no frequency, no hematuria MUSKULOSKELETAL: Present: Myalgia Absent: back pain, no arthralgia SKIN: Absent: rash NEURO: Absent: headache *Physical Exam - Vital Signs Last Vital Signs Temp Pulse Resp BP Pulse Ox 98.8 F 106 H 22 H 122/81 96 01/26/19 18:00 01/26/19 18:00 01/26/19 18:00 01/26/19 18:00 01/26/19 18:00 - Physical Exam Comments: GENERAL: Well-appearing, well-nourished. No apparent distress. HEENT: Normocephalic, atraumatic. PERRL, EOM intact. CARDIOVASCULAR: Tachycardic rate. Regular rhythm. PULMONARY: No evidence of respiratory distress. Lungs clear to auscultation bilaterally. No wheezing, rales or rhonchi. ABDOMEN: Soft, non-distended, non-tender. EXTREMITIES: Normal ROM in all four extremities. No gross deformities. SKIN: Hot, dry. No rash NEUROLOGICAL: No focal neurological deficits. Procedures - Central Line Central Line Lumen: triple Central Line Position: internal jugular (R) Anesthesia: 1% Lidocaine Amount of anesthesia (ccs): 5 Complications: none Post Central Line Insertion: sutured, good blood return, position confirmed w/ CXR ED Treatment Course - LABORATORY CBC & Chemistry Diagram: 01/26/19 11:09 01/26/19 11:09 - ADDITIONAL ORDERS Additional order review: Laboratory Results 01/26/19 01/26/19 01/26/19 12:53 11:09 11:09 PT with INR 18.90 H INR 1.59 H PTT (Actin FS) 30.0 VBG pH 7.47 H POC VBG pCO2 29.6 L POC VBG pO2 54.4 H VBG HCO3 21.0 L VBG O2 Sat ([place]) 88.9 H VBG Base Excess -1.4 Sodium Potassium Chloride Carbon Dioxide Anion Gap BUN Creatinine Est GFR (CKD-EPI)AfAm Est GFR (CKD-EPI)NonAf Random Glucose Lactic Acid Calcium Total Bilirubin AST ALT Alkaline Phosphatase Creatine Kinase CK-MB (CK-2) Troponin I Total Protein Albumin Total Amylase Lipase Urine Color Yellow Urine Appearance Clear Urine pH 6.0 Ur Specific [place] 1.018 Urine Protein Negative Urine Glucose (UA) Negative Urine Ketones Negative Urine Blood Negative Urine Nitrite Negative Urine Bilirubin Negative Urine Urobilinogen 0.2 Ur Leukocyte Esterase 1+ H Urine WBC (Auto) 16 Urine RBC (Auto) 1 Urine Casts (Auto) 4 U Epithel Cells (Auto) 4.5 U Sm Round Cell (Auto) none seen Urine Bacteria (Auto) 11.2 Blood Type Antibody Screen 01/26/19 01/26/19 01/26/19 11:09 11:09 11:09 PT with INR INR PTT (Actin FS) VBG pH POC VBG pCO2 POC VBG pO2 VBG HCO3 VBG O2 Sat ([place]) VBG Base Excess Sodium 133 L Potassium 4.0 Chloride 99 Carbon Dioxide 22 Anion Gap 12 BUN 20.4 H Creatinine 1.3 Est GFR (CKD-EPI)AfAm 64.98 Est GFR (CKD-EPI)NonAf 56.06 Random Glucose 243 H Lactic Acid 3.4 H* Calcium 8.4 L Total Bilirubin 1.8 H AST 8 L ALT 20 Alkaline Phosphatase 48 Creatine Kinase CK-MB (CK-2) Troponin I Total Protein 6.4 Albumin 3.1 L Total Amylase Lipase Urine Color Urine Appearance Urine pH Ur Specific [place] Urine Protein Urine Glucose (UA) Urine Ketones Urine Blood Urine Nitrite Urine Bilirubin Urine Urobilinogen Ur Leukocyte Esterase Urine WBC (Auto) Urine RBC (Auto) Urine Casts (Auto) U Epithel Cells (Auto) U Sm Round Cell (Auto) Urine Bacteria (Auto) Blood Type A POSITIVE Antibody Screen Negative 01/26/19 11:09 PT with INR INR PTT (Actin FS) VBG pH POC VBG pCO2 POC VBG pO2 VBG HCO3 VBG O2 Sat ([place]) VBG Base Excess Sodium Potassium Chloride Carbon Dioxide Anion Gap BUN Creatinine Est GFR (CKD-EPI)AfAm Est GFR (CKD-EPI)NonAf Random Glucose Lactic Acid Calcium Total Bilirubin AST ALT Alkaline Phosphatase Creatine Kinase 37 CK-MB (CK-2) < 1.0 Troponin I < 0.02 Total Protein Albumin Total Amylase 35 Lipase 46 L Urine Color Urine Appearance Urine pH Ur Specific [place] Urine Protein Urine Glucose (UA) Urine Ketones Urine Blood Urine Nitrite Urine Bilirubin Urine Urobilinogen Ur Leukocyte Esterase Urine WBC (Auto) Urine RBC (Auto) Urine Casts (Auto) U Epithel Cells (Auto) U Sm Round Cell (Auto) Urine Bacteria (Auto) Blood Type Antibody Screen 01/26/19 11:09 RBC 5.06 MCV 72.6 L MCHC 33.0 RDW 17.0 H MPV 8.8 Neutrophils % 84.6 H Lymphocytes % 5.4 L D Monocytes % 9.7 Eosinophils % 0.1 Basophils % 0.2 - RADIOLOGY Radiograph Interpretation: CXR: Chest: Sepsis An AP portable view of the chest reveals no change since 09/02. There are clear lungs, normal mediastinum and sharp angles. The bones and soft tissues are intact. Impression: No acute chest pathology. - Medications Given in the ED: ED Medications Discontinued Medications Generic Name Dose Route Start Last Admin Trade Name Freq PRN Reason Stop Dose Admin Acetaminophen 1,000 mg 01/26/19 11:36 01/26/19 13:10 Ofirmev Injection - IVPB 01/26/19 11:37 1,000 mg ONCE ONE Administration Sodium Chloride 1,000 mls @ 1,000 mls/hr 01/26/19 11:30 01/26/19 11:38 Normal Saline - IV 01/26/19 12:29 1,000 mls/hr ASDIR STA Administration Vancomycin HCl 1,000 mg/ 250 mls @ 166.667 mls/hr 01/26/19 11:35 01/26/19 14: 10 Dextrose IVPB 01/26/19 13:04 166.667 mls/hr ONCE ONE Administration Protocol Piperacillin Sod/Tazobactam 100 mls @ 200 mls/hr 01/26/19 11:35 01/26/19 13: 10 Sod 4.5 gm/ Dextrose IVPB 01/26/19 12:04 200 mls/hr ONCE ONE Administration Protocol Meropenem 1 gm/ Dextrose 100 mls @ 200 mls/hr 01/26/19 16:01 01/26/19 16:50 IVPB 01/26/19 16:30 200 mls/hr ONCE ONE Administration Sodium Chloride 1,000 ml 01/26/19 14:14 01/26/19 13:20 Normal Saline - IV 01/26/19 14:15 1,000 ml ONCE ONE Administration Medical Decision Making - Medical Decision Making Jarred Parsons is a 68 yo Gentleman with a pmh of recent cystosopy at [place] yesterday, bladder cancer on chemo, NM s/p stents, heart failure, NIDDM, HTN, and HLD who was sent into the [facility] er for evaluation by Dr. Brown as he had a suspicion that the patient was uroseptic. The patient has been experiencing generalized weakness, subjective fevers, chills, rigors, body pains, and overall discomfort since his cystoscopic procedure. The patient believes he has an infection from his urologic procedure yesterday. Vital Signs Temp Pulse Resp BP Pulse Ox 98.8 F 113 H 22 H 92/55 L 96 01/26/19 10:36 01/26/19 10:36 01/26/19 10:36 01/26/19 10:36 01/26/19 10:36 - Tachycardic - Hypotensive - Tachypneic - SIRS met DDx IBNLT: Sepsis - Uro vs PNA vs bacteremia vs cellulitis, ACS/NM, heart failure, electrolyte/metabolic disturbance Plan: ED adult sepsis workup, IV fluids, anti-pyretics, Abx, Uro/cards consult, admit to Dr. Vences EKG: Sinus tachycardia rate of 113, narrow complexes, low voltage qrs, left posterior fascicular block, no hypertrophy, no ST elevations or depression, inferior Q waves, TWI's in 1 and aVl, QTc 449, MO 166. Labs: Leukocytosis with left shift. Mildly elevated BUN and glucose. Lactic acidosis. Urine: Weak UTI CXR: Unremarkable. Disposition: Admit to ICU for septic shock Discharge - Discharge Information Problems reviewed: Yes Clinical Impression/Diagnosis: Septic shock Sepsis Qualifiers: Sepsis type: sepsis due to unspecified organism Sepsis acute organ dysfunction status: unspecified Qualified Code(s): A41.9 - Sepsis, unspecified organism Condition: Guarded - Admission Yes - Follow up/Referral - Patient Discharge Instructions - Post Discharge Activity
[2019-01-26] MEDS ORDERED: SODIUM CHLORIDE 1,000 ML IV STA (11:30)
[2019-01-26] MEDS ORDERED: VANCOMYCIN 1,000 MG in DEXTROSE 5%-WATER - 250 ML IVPB ONE (11:35)
[2019-01-26] MEDS ORDERED: PIPERACILLIN/TAZOB 4.5 GM 4.5 GM in DEXTROSE 5%-WATER 100 ML IVPB ONE (11:35)
[2019-01-26 11:36] LABS: BASO % 0.2 % (0-2.0); EOS % 0.1 % (0-4.5); HEMATOCRIT 36.7 % (35.4-49); HEMOGLOBIN 12.1 GM/dL (11.7-16.9); LYMPH % 5.4 % (8-40); MCH 23.9 pg (25.7-33.7); MEAN CELL VOLUME 72.6 fl (80-96); MEAN PLT VOLUME 8.8 fl (7.5-11.1); MONO % 9.7 % (3.8-10.2); NEUT % 84.6 % (42.8-82.8); PLATELET COUNT 136 K/MM3 (134-434); RBC 5.06 M/mm3 (4.00-5.60); WHITE BLOOD COUNT 12.2 K/mm3 (4.0-10.0)
[2019-01-26] MEDS ORDERED: ACETAMINOPHEN 1000 MG/100 ML VIAL (NON FORMULARY) IVPB ONE (11:36)
[2019-01-26 11:38] LABS: VENOUS PC02 29.6 mmHg (38-52); VENOUS PH 7.47 (7.31-7.41); VENOUS PO2 54.4 mmHg (28-48)
--- NOTE | 2019-01-26 11:43 | PDOC ---
Attending Attestation - Resident Resident Name: Lewis Vang - ED Attending Attestation I have performed the following: I have examined & evaluated the patient, The case was reviewed & discussed with the resident, I agree w/resident's findings & plan, Exceptions are as noted - HPI HPI: 01/26/19 11:42 Mr. Parsons is a 68 yo M h/o CAD s/p PCI and Stent x 4, CHF (ef reportedly 30%), NIDDM, HTN. HLD, Bladder Cancer (not on chemo) Pt presents to the ER with a complaint of weakness and rigors Pt is followed by [facility] Urologist Was seen 2 days ago there for cystoscopy (no biopsy, no stenting) The day following the procedure, pt noted that he had rigors, no fevers Pt continues to have rigors and feel weak Pt son spoke with him last night and asked that he come in to the ER Pt refused He gave a single dose of Levaquin No known fevers No diarrhea Pt does have right groin pain - Physicial Exam PE: 01/26/19 11:54 GENERAL: The patient is in no acute distress. HEAD: Normal EYES: PERRLA, EOMI, ? sclera anicteric ENT:Dry mucous membranes. NECK: Normal range of motion, supple LUNGS: Breath sounds equal, clear to auscultation bilaterally. No wheezes, and no crackles. HEART:Regular rate and rhythm, normal S1 and S2 without murmur, rub or gallop. ABDOMEN: Soft, nontender, normoactive bowel sounds. No guarding, no rebound. EXTREMITIES: Normal range of motion, no edema. NEUROLOGICAL: Cranial nerves II through XII grossly intact. Normal speech. No focal neurological deficits. MUSCULOSKELETAL: Back non-tender to palpation, no CVA tenderness SKIN: Warm, Dry, normal turgor, no rashes or lesions noted. - Critical Care Time Total Critical Care Time: 120 Critical Care Statement: The care of this patient involved high complexity decision making to prevent further life threatening deterioration of the patient 's condition and/or to evaluate & treat vital organ system(s) failure or risk of failure. - Medical Decision Making 01/26/19 11:55 EKG :ST rate of 113 bpm, RAD, no st elevation or depression, t waves upright Pt with rigors s/p cystoscopy, h/o bladder cancer DD: UTI/Urosepsis, URI, abdominal infection, dehydration Will do: Labs IVF (will not do the sepsis bolus given EF 30%, pt BP improving with gentle hydration) Broad spectrum abx (given recent instrumentation) Admit 01/26/19 12:16 Laboratory Tests 01/26/19 01/26/19 01/26/19 11:09 11:09 11:09 WBC 12.2 H Hgb 12.1 Hct 36.7 Plt Count 136 Neutrophils % 84.6 H Lymphocytes % 5.4 L D PT with INR 18.90 H INR 1.59 H VBG pH 7.47 H POC VBG pCO2 29.6 L POC VBG pO2 54.4 H 01/26/19 12:36 Laboratory Tests 01/26/19 01/26/19 01/26/19 11:09 11:09 11:09 VBG pH 7.47 H POC VBG pCO2 29.6 L POC VBG pO2 54.4 H Sodium 133 L Potassium 4.0 Chloride 99 Carbon Dioxide 22 BUN 20.4 H Creatinine 1.3 Random Glucose 243 H Lactic Acid 3.4 H* Total Bilirubin 1.8 H 01/26/19 13:32 Case reviewed with marketing strategy manager given pt remains hypotensive 01/26/19 16:50 Pt received 30cc/kg bolus Remains hypotensive Central line placed Consent obtained per ICU team Pt sent to CT abdomen to rule out any other occult source of sepsis (UA is not terribly abnormal but pt was given a single dose of levaquin, awaiting culture) Pt has been seen by Ru Ley, and ICU resident Clinical impression: Septic shock Urosepsis Sepsis - query Please clarify if the patient meets the sepsis for criteria: Septic Shock
[2019-01-26 11:48] LABS: INR 1.59 (0.83-1.09); PROTHROMBIN TIME (PATIENT) 18.9 SEC (9.7-13.0)
[2019-01-26 12:19] LABS: ALBUMIN 3.1 g/dl (3.4-5.0); BILIRUBIN,TOTAL 1.8 mg/dL (0.2-1); BLOOD UREA NITROGEN 20.4 mg/dL (7-18); CALCIUM 8.4 mg/dL (8.5-10.1); CREATININE 1.3 mg/dL (0.55-1.3); TOT PROT 6.4 g/dl (6.4-8.2)
[2019-01-26 12:40] LABS: AMYLASE 35 U/L (25-115); LIPASE 46 U/L (73-393)
[2019-01-26] MEDS ORDERED: ACETAMINOPHEN INJECTION 100 ML IVPB ONE (12:56)
[2019-01-26] MEDS ORDERED: PIPERACILLIN/TAZOB 4.5 GM 4.5 GM/100 ML BAG IVPB ONE (12:56)
[2019-01-26 13:03] LABS: EPI CELLS 4.5 /HPF (0-5/HPF); HYALINE CASTS 4 /lpf (0-8); URINE APPEARANCE CLEAR; URINE BACTERIA 11.2 /hpf (NEGATIVE); URINE BILIRUBIN NEGATIVE (NEGATIVE); URINE COLOR YELLOW; URINE GLUCOSE (UA) NEGATIVE (NEGATIVE); URINE KETONE NEGATIVE (NEGATIVE); URINE LEUK ESTERASE 1+ (NEGATIVE); URINE NITRITE NEGATIVE (NEGATIVE); URINE PROTEIN NEGATIVE (NEGATIVE); URINE RBC 1 /hpf (0-4); URINE UROBILINOGEN 0.2 mg/dL (0.2-1.0); URINE WBC 16 /hpf (0-5)
[2019-01-26] MEDS ORDERED: VANCOMYCIN 1 GRAM (PRE-DOCKED) 1,000 MG/250 ML BAG IVPB ONE (14:09)
[2019-01-26] MEDS ORDERED: SODIUM CHLORIDE 0.9% 500 ML INFUS.BAG IV ONE (14:14)
--- NOTE | 2019-01-26 14:40 | CONSULT ---
Consultation: REQUESTING PROVIDER: Dr. Hollingsworth CONSULT REQUEST: We have been asked to medically evaluate this patient for septic shock 2/2 UTI HISTORY OF PRESENT ILLNESS: 68 y/o M with PMH CAD s/p PCI (on asa, plavix) stent x4, diastolic CHF, NIDDM, HTN, HLD, bladder CA (chemo x1; was in remission per family), BPH, who presented with weakness and rigors for two days, after cystoscopy. Per pt, he had a cystoscopy done two days ago. Shortly after, he developed rigors, chills, dysuria, and multiple episodes of NBNB emesis. Son is a doctor, and pt was recommended to take levaquin PO x1. As pt did not have improvement in his sx, he was urged to come to the ED for further evaluation. Pt c/o cont'd sx of dysuria, "feeling warm," however no longer nauseated. Denies SOB, chest pain or pressure or changes in bowel function. Of note, pt was dx with bladder CA "a few yrs ago," and received chemo one time , which was curative. Currently in remission per family. Has been f/u by urology at [place], Dr. Lutz initially every 3 months, then subsequently every 6 mo. At baseline, pt ambulates on own. 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 used to smoke 2 ppd x 40 yrs. Quit recently . Denies alcohol or recreational drug use REVIEW OF SYSTEMS: +nausea (now resolved) +dysuria +rigors PHYSICAL EXAMINATION Vital Signs - 24 hr 01/26/19 01/26/19 10:36 13:11 Temperature 98.8 F 99.0 F Pulse Rate 113 H Pulse Rate [ 106 H Right Radial] Respiratory 22 H 20 Rate Blood Pressure 92/55 L Blood Pressure 94/48 L [Right Arm] O2 Sat by Pulse 96 99 Oximetry (%) GENERAL: Awake, alert, and fully oriented, in no acute distress. HEAD: Normal with no signs of trauma. EYES: Pupils equal, round and reactive to light, extraocular movements intact, sclera anicteric, conjunctiva clear. EARS, NOSE, THROAT: Ears normal, nares patent, oropharynx clear without exudates. Dry mucous membranes. NECK: Normal range of motion, supple LUNGS: Breath sounds equal, clear to auscultation bilaterally. No wheezes, and no crackles. No accessory muscle use. HEART: +tachycardic rate and rhythm, normal S1 and S2 without murmur, rub or gallop. ABDOMEN: Soft, nontender, not distended, normoactive bowel sounds, no guarding LOWER EXTREMITIES: 2+ pt pulses, warm, well-perfused. No calf tenderness. No peripheral edema. NEUROLOGICAL: Cranial nerves II-XII intact. PSYCHIATRIC: Cooperative. Laboratory Results 01/26/19 01/26/19 01/26/19 11:09 11:09 11:09 WBC 12.2 H Hgb 12.1 Hct 36.7 Plt Count 136 Sodium 133 L Potassium 4.0 Chloride 99 Carbon Dioxide 22 BUN 20.4 H Creatinine 1.3 Lactic Acid Total Bilirubin 1.8 H Albumin 3.1 L Lipase 46 L Ur Leukocyte Esterase Urine WBC (Auto) 01/26/19 01/26/19 11:09 12:53 Creatinine Lactic Acid 3.4 H* Albumin Ur Leukocyte Esterase 1+ H Urine WBC (Auto) 16 EKG: +L fascicular block, qtc 449ms CXR: without acute abnormality ASSESSMENT/PLAN: 68 y/o M with PMH CAD s/p PCI (on asa, plavix) stent x4, systolic CHF (last EF 30%), NIDDM, HTN, HLD, bladder CA (chemo x1; was in remission per family), BPH, who presented with weakness and rigors for two days, after cystoscopy. #Neuro -AAO x3, intact #Cardio Diastolic CHF -w/ past hx of systolic CHF (EF30%) -Current ECHO w/diastolic HF. EF 50-55% ; RV is normal in size and function, mild TR, mild -strict i/o, na control, daily wt -hold lasix, aldactone for now CAD s/p PCI x 4 -c/w asa, ranexa, effient, lipitor, vascepa -per cardio, resume carvedilol 25 bid and replace Entresto with Valsartan 80 qd when hemodynamics tolerate since improved LVEF from previous -Cardio on board: Dr. Lara #ID R/o Septic shock 2/2 UTI -s/p vanc, zosyn in ED. received 3L NS in ER, hypotensive despite IVF -lactic 3.4>3.2. c/t trend -CVP monitoring q2h -will start on levophed. +R IJ placed in ER -f/u CTAP -c/w meropenem -f/u blood, ucx #Urology BPH Bladder CA (chemo x 1; was in remission per family) -c/w flomax -f/u renal, bladder sono -will insert phelps, per urology -Uro on board: Louise Adams #Endo DM2 -c/w ISS, BGM ACHS #F/E/N currently not on IVF; will bolus accordingly to CVP continue to follow capo diabetic / cholesterol/ fat controlled diet #PPX Hep 5k sq TID #Lines/ tubes +R IJ placed in ER - 01/26/19 #Dispo admitted to ICU Dispo: We will continue to follow the patient. Thank you for this consultative opportunity. Visit type - Emergency Visit Emergency Visit: Yes ED Registration Date: 01/26/19 Care time: The patient presented to the Emergency Department on the above date and was hospitalized for further evaluation of their emergent condition. - New Patient This patient is new to me today: Yes Date on this admission: 01/26/19 - Critical Care Critical Care patient: Yes Total Critical Care Time (in minutes): 45 Critical Care Statement: The care of this patient involved high complexity decision making to prevent further life threatening deterioration of the patient 's condition and/or to evaluate & treat vital organ system(s) failure or risk of failure.
--- NOTE | 2019-01-26 15:12 | PN ---
Teaching Attending Note Name of Resident: Yasmine Torrez ATTENDING PHYSICIAN STATEMENT I saw and evaluated the patient. I reviewed the resident's note and discussed the case with the resident. I agree with the resident's findings and plan as documented. SUBJECTIVE: Patient seen and examined in the ER with the resident. In brief, 68 M, CAD s/p PCI (on asa, plavix) stent x4, systolic CHF (last EF apparently 30% per son who is a doctor in [place]), NIDDM, HTN, HLD, bladder CA (chemo x1) and BPH. Admitted via the ER due to generalized weakness and rigors for two days after a cystoscopy. He has also been experiencing NBNB emesis. He took levaquin x 1 as an outpatient. Due to progressive symptoms he presented to the ER. No travel history or sick contacts. No CP or SOB. Hemodynamics marginal after 3 liters of IVF. Central access will be inserted. Intake & Output 01/23/19 01/24/19 01/25/19 01/26/19 23:59 23:59 23:59 23:59 Weight 206 lb Last Vital Signs Temp Pulse Resp BP Pulse Ox 99.0 F 102 H 18 92/58 L 99 01/26/19 13:11 01/26/19 14:45 01/26/19 14:45 01/26/19 14:45 01/26/19 13:11 Active Medications Aspirin (Asa -) 81 mg PO DAILY [facility] Chlorhexidine Gluconate (Hibiclens For Decolonization -) 1 applic TP HS [facility] Heparin Sodium (Porcine) (Heparin -) 5,000 unit SQ TID [facility] Piperacillin Sod/Tazobactam (Sod 3.375 gm/ Dextrose) 50 mls @ 100 mls/hr IVPB Q8H-IV [facility]AN MARIE; Protocol Mupirocin (Bactroban Ointment (For Decolonization) -) 1 applic NS BID [facility] Stop: 01/31/19 21:59 Prasugrel (Effient -) 5 mg PO DAILY [facility] Ranolazine (Ranexa -) 500 mg PO BID [facility] Tamsulosin HCl (Flomax -) 0.4 mg PO DAILY@0830 [facility] MAR[facility] GENERAL: Awake, alert, and fully oriented, in no acute distress. HEAD: Normal with no signs of trauma. EYES: Pupils equal, round and reactive to light, extraocular movements intact, sclera anicteric, conjunctiva clear. EARS, NOSE, THROAT: Ears normal, nares patent, oropharynx clear without exudates. Dry mucous membranes. NECK: Normal range of motion, supple LUNGS: Breath sounds equal, clear to auscultation bilaterally. No wheezes, and no crackles. No accessory muscle use. HEART: +tachycardic rate and rhythm, normal S1 and S2 without murmur, rub or gallop. ABDOMEN: Soft, nontender, not distended, normoactive bowel sounds, no guarding LOWER EXTREMITIES: 2+ pt pulses, warm, well-perfused. No calf tenderness. No peripheral edema. NEUROLOGICAL: Cranial nerves II-XII intact. PSYCHIATRIC: Cooperative. Laboratory Results Laboratory Results 01/26/19 01/26/19 01/26/19 12:53 11:09 11:09 PT with INR 18.90 H INR 1.59 H PTT (Actin FS) 30.0 VBG pH 7.47 H POC VBG pCO2 29.6 L POC VBG pO2 54.4 H VBG HCO3 21.0 L VBG O2 Sat ([place]) 88.9 H VBG Base Excess -1.4 Sodium Potassium Chloride Carbon Dioxide Anion Gap BUN Creatinine Est GFR (CKD-EPI)AfAm Est GFR (CKD-EPI)NonAf Random Glucose Lactic Acid Calcium Total Bilirubin AST ALT Alkaline Phosphatase Creatine Kinase CK-MB (CK-2) Troponin I Total Protein Albumin Total Amylase Lipase Urine Color Yellow Urine Appearance Clear Urine pH 6.0 Ur Specific [place] 1.018 Urine Protein Negative Urine Glucose (UA) Negative Urine Ketones Negative Urine Blood Negative Urine Nitrite Negative Urine Bilirubin Negative Urine Urobilinogen 0.2 Ur Leukocyte Esterase 1+ H Urine WBC (Auto) 16 Urine RBC (Auto) 1 Urine Casts (Auto) 4 U Epithel Cells (Auto) 4.5 Urine Bacteria (Auto) 11.2 Blood Type Antibody Screen 01/26/19 01/26/19 01/26/19 11:09 11:09 11:09 PT with INR INR PTT (Actin FS) VBG pH POC VBG pCO2 POC VBG pO2 VBG HCO3 VBG O2 Sat ([place]) VBG Base Excess Sodium 133 L Potassium 4.0 Chloride 99 Carbon Dioxide 22 Anion Gap 12 BUN 20.4 H Creatinine 1.3 Est GFR (CKD-EPI)AfAm 64.98 Est GFR (CKD-EPI)NonAf 56.06 Random Glucose 243 H Lactic Acid 3.4 H* Calcium 8.4 L Total Bilirubin 1.8 H AST 8 L ALT 20 Alkaline Phosphatase 48 Creatine Kinase CK-MB (CK-2) Troponin I Total Protein 6.4 Albumin 3.1 L Total Amylase Lipase Urine Color Urine Appearance Urine pH Ur Specific [place] Urine Protein Urine Glucose (UA) Urine Ketones Urine Blood Urine Nitrite Urine Bilirubin Urine Urobilinogen Ur Leukocyte Esterase Urine WBC (Auto) Urine RBC (Auto) Urine Casts (Auto) U Epithel Cells (Auto) Urine Bacteria (Auto) Blood Type A POSITIVE Antibody Screen Negative 01/26/19 11:09 PT with INR INR PTT (Actin FS) VBG pH POC VBG pCO2 POC VBG pO2 VBG HCO3 VBG O2 Sat ([place]) VBG Base Excess Sodium Potassium Chloride Carbon Dioxide Anion Gap BUN Creatinine Est GFR (CKD-EPI)AfAm Est GFR (CKD-EPI)NonAf Random Glucose Lactic Acid Calcium Total Bilirubin AST ALT Alkaline Phosphatase Creatine Kinase 37 CK-MB (CK-2) < 1.0 Troponin I < 0.02 Total Protein Albumin Total Amylase 35 Lipase 46 L Urine Color Urine Appearance Urine pH Ur Specific [place] Urine Protein Urine Glucose (UA) Urine Ketones Urine Blood Urine Nitrite Urine Bilirubin Urine Urobilinogen Ur Leukocyte Esterase Urine WBC (Auto) Urine RBC (Auto) Urine Casts (Auto) U Epithel Cells (Auto) Urine Bacteria (Auto) Blood Type Antibody Screen 01/26/19 11:09 RBC 5.06 MCV 72.6 L MCHC 33.0 RDW 17.0 H MPV 8.8 Neutrophils % 84.6 H Lymphocytes % 5.4 L D Monocytes % 9.7 Eosinophils % 0.1 Basophils % 0.2 IMP: Sepsis due to a source R/O Septic Shock Recent cystoscopy 2 days ago CAD S/P PCI (on asa, plavix) stent x 4 History of systolic CHF (last EF apparently 30% per son who is a doctor in [place]) NIDDM HTN HLD Bladder CA (chemo x1) BPH. Parsons-culture Continue IVF resuscitation Measure and follow CVP ID evaluation called O2 as needed Follow lactic acid ECHO Strict I & O Trend CE Requires ICU monitoring for hemodynamic monitoring and possible use of pressors Dr Chen Critical care time spent in reviewing chart, evaluating patient and formulating plan - 36 minutes.
--- NOTE | 2019-01-26 15:17 | ECHO ---
Name: DIMA ANGEL Exam:Adult Echocardiogram Study Date: 01/26/2019 02:31 PM Age: 68 yrs Reason For Study: EVALUATE LVEF Height: 70 in Weight: 206 lb BSA: 2.1 m2 MMode/2D Measurements & Calculations IVSd: 1.0 cm Ao root diam: 3.2 cm LVIDd: 4.3 cm LA dimension: 3.8 cm LVIDs: 2.7 cm LVPWd: 0.98 cm EDV(Teich): 81.0 ml LVOT diam: 2.2 cm ESV(Teich): 27.1 ml Doppler Measurements & Calculations MV E max nishant: 101.2 cm/sec Ao V2 max: 161.9 cm/sec MV A max nishant: 127.8 cm/sec Ao max P.5 mmHg MV E/A: 0.79 Ao V2 mean: 127.3 cm/sec Ao mean P.9 mmHg Ao V2 VTI: 35.0 cm ABHIJEET(I,D): 2.3 cm2 ABHIJEET(V,D): 2.6 cm2 LV V1 max P.9 mmHg MR max nishant: 267.4 cm/sec LV V1 mean P.5 mmHg MR max P.6 mmHg LV V1 max: 110.6 cm/sec LV V1 mean: 76.3 cm/sec LV V1 VTI: 21.8 cm SV(LVOT): 81.6 ml PI end-d nishant: 114.0 cm/sec Med Peak E' Nishant: 4.7 cm/sec Med E/e': 21.6 Lat Peak E' Nishant: 6.7 cm/sec Lat E/e': 15.1 Procedure The study was technically difficult with many images being suboptimal in quality. Left Ventricle Left ventricular systolic function is normal. Ejection Fraction = 50-55%. The transmitral spectral Do ppler flow pattern is suggestive of impaired LV relaxation. Regional wall motion abnormalities cannot be ex cluded due to limited visualization. Right Ventricle The right ventricle is normal in size and function. Atria Normal left and right atrial size and function. Mitral Valve There is mild to moderate mitral annular calcification. There is no mitral valve stenosis. There is t race to mild mitral regurgitation. Tricuspid Valve The tricuspid valve is normal in structure and function. There is mild tricuspid regurgitation. Aortic Valve There is mild aortic sclerosis.;. No hemodynamically significant valvular aortic stenosis. No aortic regurgitation is present. Pulmonic Valve The pulmonic valve is not well seen, but is grossly normal. There is no pulmonic valvular stenosis. M ild pulmonic valvular regurgitation. Great Vessels The aortic root is normal size. Pericardium/Pleura There is no pericardial effusion. Interpretation Summary The study was technically difficult with many images being suboptimal in quality. Regional wall motion abnormalities cannot be excluded due to limited visualization. Left ventricular systolic function is normal. Ejection Fraction = 50-55%. The right ventricle is normal in size and function. There is mild to moderate mitral annular calcification. There is trace to mild mitral regurgitation. There is mild tricuspid regurgitation. There is mild aortic sclerosis.; No hemodynamically significant valvular aortic stenosis. There is no pericardial effusion. MD Polanco *Kary 01/26/2019 03:17 PM
--- NOTE | 2019-01-26 15:43 | CON.CARD ---
Consult Consult Specialty:: Cardiology Reason for Consultation:: Septic shock, ischemic cardiomyopathy - History of Present Illness Chief Complaint: Rigors, malaise History of Present Illness: 68-year-old male with h/o CAD post VA s/p multivessel stents, ischemic cardiomyopathy with improved LVEF 50-55%, NIDDM, HTN, HLD, bladder CA (chemo x1 ) and BPH presented with generalized weakness, rigors, chills, fevers, dysuria, nausea and dry emesis since resolved for two days after cystoscopy. He took levaquin x 1 as an outpatient. Denies chest pain, dyspnea, diarrhea, palpitations, orthopnea, PND or LE edema. Given 3 liters ivf and vancomycin and zosyn in the ED with improvement of hemodynamics. Last seen in office 2018. - History Source History Provided By: Patient Limitations to Obtaining History: No Limitations - Past Medical History Cardio/Vascular: Yes: CAD (s.p stenting), HTN, Hyperlipdemia Gastrointestinal: Yes: GERD Renal/: Yes: Cancer (bladder) Endocrine: Yes: Diabetes Mellitus - Alcohol/Substance Use Hx Alcohol Use: No - Smoking History Smoking history: Unknown if ever smoked Have you smoked in the past 12 months: Yes If you are a former smoker, when did you quit?: 3 years ago Home Medications - Allergies Allergies/Adverse Reactions: Allergies Allergy/AdvReac Type Severity Reaction Status Date / Time No Known Allergies Allergy Verified 12/14/17 13:48 - Home Medications Home Medications: Ambulatory Orders Aspirin [ASA -] 81 mg PO DAILY 03/02/16 Carvedilol 25 mg PO BID 03/02/16 Insulin Glulisine [Apidra Solostar] 100 unit SQ ASDIR 03/02/16 Linagliptin/Metformin HCl [Jentadueto 2.5 mg-1000 mg Tab] 1 each PO BID Omeprazole 40 mg PO DAILY 03/02/16 Prasugrel HCl [Effient] 5 mg PO DAILY 03/02/16 Ranolazine [Ranexa] 500 mg PO BID #60 tab.er.12h 05/06/17 Ergocalciferol [Vitamin D2] 50,000 unit PO Q7D@1000 01/26/19 Glipizide [Glipizide Xl] 10 mg PO ASDIR 01/26/19 Sacubitril/Valsartan [Entresto 49 mg-51 mg Tablet] 1 each PO BID 01/26/19 Spironolactone [Aldactone] 25 mg PO DAILY 01/26/19 Tamsulosin HCl [Flomax] 0.4 mg PO DAILY 01/26/19 Review of Systems - Review of Systems Constitutional: reports: Chills, Diaphoresis, Fever, Malaise, Weakness Genitourinary: reports: Flank Pain Vital Signs: Vital Signs Temperature 99.0 F 01/26/19 13:11 Pulse Rate 109 H 01/26/19 15:29 Respiratory Rate 18 01/26/19 15:29 Blood Pressure 100/65 01/26/19 15:29 O2 Sat by Pulse Oximetry (%) 98 01/26/19 15:29 Constitutional: Yes: No Distress, Calm Neck: Yes: Supple Respiratory: Yes: Regular, CTA Bilaterally Gastrointestinal: Yes: Normal Bowel Sounds, Soft Cardiovascular: Yes: Tachycardia JVD: No Carotid Bruit: No Heart Sounds: Yes: S1, S2 Edema: No - Other Data Labs, Other Data: CBC, BMP 01/26/19 11:09 01/26/19 11:09 INR, PTT INR 1.59 (0.83-1.09) H 01/26/19 11:09 Troponin, BNP 01/26/19 11:09 Troponin I < 0.02 Troponin, BNP 01/26/19 11:09 Troponin I < 0.02 NSR @ 108 Ejection Fraction %: LVEF > or = 40 % Imaging - Results Chest X-ray: Report Reviewed (NAD) Problem List - Problems (1) Sepsis Code(s): A41.9 - SEPSIS, UNSPECIFIED ORGANISM Qualifiers: Sepsis type: sepsis due to unspecified organism Sepsis acute organ dysfunction status: unspecified Qualified Code(s): A41.9 - Sepsis, unspecified organism (2) CAD (coronary artery disease) Code(s): I25.10 - ATHSCL HEART DISEASE OF [place] CORONARY ARTERY W/O ANG PCTRS Qualifiers: Coronary Disease-Associated Artery/Lesion type: [place] artery [place] vs. 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 use: with intermediate use (4) Hyperlipidemia associated with type 2 diabetes mellitus Code(s): E11.69 - TYPE 2 DIABETES MELLITUS WITH OTHER SPECIFIED COMPLICATION; E78.5 - HYPERLIPIDEMIA, UNSPECIFIED (5) Hypertensive cardiomyopathy Code(s): I11.9 - HYPERTENSIVE HEART DISEASE WITHOUT HEART FAILURE; I43 - CARDIOMYOPATHY IN DISEASES CLASSIFIED ELSEWHERE Qualifiers: Heart failure presence: without heart failure Qualified Code(s): I11.9 - Hypertensive heart disease without heart failure; I43 - Cardiomyopathy in diseases classified elsewhere (6) Ischemic cardiomyopathy Code(s): I25.5 - ISCHEMIC CARDIOMYOPATHY (7) S/P coronary artery stent placement Code(s): Z95.5 - PRESENCE OF CORONARY ANGIOPLASTY IMPLANT AND GRAFT Assessment/Plan 01/26/2019 Echo: Normal LV and RV size and fxn LVEF 50-55%, trace-mild MR, mild TR 01/03/2017 Cardiac MRI LVEF 40% with anteroseptal and anterior infarcts 11/29/2016 LHC: LVEF 35%, patent LADstent, occluded LCx-OM1 not amenable to intervention, and patent prox-mid RCA stent 03/01/2016 Echo: Prob preserved LV fxn with anterior HK, mild MR, TR 03/01/2016 P-Myoview: Large lateral, inferolateral infarct with small zone periinfarct ischemia, LVEF 31% 1. Sepsis source post cystoscopy h/o bladder cancer 2. CAD s/p VA, multivessel PCI 3. Ischemic cardiomyopathy with improved LVEF 4. HTN/HCVD 5. Type 2 DM 6. Hyperlipidemia 7. PAD 8. s/p lap cholecystec 9. BPH P:1. Abx course per C&S, IVF, pressors as needed to maintain MAP>65 mmHg 2. Renal US and CT scan abd/pelvis to r/o upper tract obstruction, phelps cath 3. Continue ASA 81, Effient 5 qd, Lipitor 40 qd, Ranexa 500 bid, Vascepa 2 bid. Resume carvedilol 25 bid and replace Entresto with Valsartan 80 qd as hemodynamics tolerate since LVEF has recovered. 4. DVT and GI prophylaxis 5. Thank you for consultative opportunity
--- NOTE | 2019-01-26 15:45 | PN ---
Progress Note (short form) - Note Progress Note: ID consult dictated imp/reccd sepsis remains hypotensive despite 3 liters IVF was well until yesterday had cystoscoopy on Tuesday- on had chills dry heaves, he felt so weak he could not ambulate wouldn't come to the hospital so son started levaquin 750 last night this am he remained weak so he was brought to the hosopital vomiting has resolved reports no cough, no chest pain, no diarrhea some dysuria given 3 liters ivf and vancomycin and zosyn in the ED sepsis suspect will switch to meropenem to cover for esbl GNR f/u cultures check renal/bladder sono for obstruction check ct abd/pelvis echo for admission to ICU for pressors/monitoring history of bladder cancer- currently being monitored history of BPH history of CAD/CHF case d/w icu team, dr zapata, and family at bedside 35 minutes spent in the care of this critically ill icu patient Problem List - Problems (1) Sepsis Code(s): A41.9 - SEPSIS, UNSPECIFIED ORGANISM Qualifiers: Sepsis type: sepsis due to unspecified organism Sepsis acute organ dysfunction status: unspecified Qualified Code(s): A41.9 - Sepsis, unspecified organism (2) Bladder cancer Code(s): C67.9 - MALIGNANT NEOPLASM OF BLADDER, UNSPECIFIED (3) BPH (benign prostatic hyperplasia) Code(s): N40.0 - BENIGN PROSTATIC HYPERPLASIA WITHOUT LOWER URINRY TRACT SYMP (4) CAD (coronary artery disease) Code(s): I25.10 - ATHSCL HEART DISEASE OF [place] CORONARY ARTERY W/O ANG PCTRS Qualifiers: Coronary Disease-Associated Artery/Lesion type: [place] artery [place] vs. transplanted heart: [place] heart Associated angina: without angina Qualified Code(s): I25.10 - Atherosclerotic heart disease of [place] coronary artery without angina pectoris (5) Heart failure Code(s): I50.9 - HEART FAILURE, UNSPECIFIED Qualifiers: Heart failure type: systolic
--- NOTE | 2019-01-26 15:49 | HP ---
Admitting History and Physical - Primary Care Physician PCP: Aleja Brown I - Admission Chief Complaint: came in for weakness chills for one day History of Present Illness: 68 y/o M with PMH CAD s/p PCI (on asa, plavix) stent x4, systolic CHF (last EF 30%), NIDDM, HTN, HLD, bladder CA (chemo x1; was in remission per family), BPH, who presented with weakness and rigors for two days, after cystoscopy. Per pt, he had a cystoscopy done two days ago. the day of procedure he came home was doing ok and was given abx the next day the developed rigors, chills, dysuria, and multiple episodes of dry heaves and nausea. Son is a doctor, and pt was recommended to take levaquin PO x1 after son spoke to the urologist. yesterday he was having chills and shaky did not feel well spoke to his PMD who was concerned about urosepsis and told patient to come to hospital, patient took his diuretic and BP medication in the morning prior to comming to the ER. patient was away in [place] for 2 months came back 3 weeks ago and was feeling well till the day after cystocopy' in ER he got 3 litres of fluid vancomycin and meropenem on labs: wbc 12.2 lactic acid 3.4 vitals 92/54 and hr 113 History Source: Family Member - Past Medical History Cardiovascular: Yes: CAD (s.p stenting), HTN, Hyperlipdemia, Other (hear failure EF 30%) Gastrointestinal: Yes: GERD Renal/: Yes: Cancer (bladder) Endocrine: Yes: Diabetes Mellitus - Past Surgical History Past Surgical History: Yes: Cholecystectomy, Hernia Repair - Smoking History Smoking history: Unknown if ever smoked Have you smoked in the past 12 months: Yes If you are a former smoker, when did you quit?: 3 years ago - Alcohol/Substance Use Hx Alcohol Use: No Home Medications - Allergies Allergies/Adverse Reactions: Allergies Allergy/AdvReac Type Severity Reaction Status Date / Time No Known Allergies Allergy Verified 12/14/17 13:48 - Home Medications Home Medications: Ambulatory Orders Aspirin [ASA -] 81 mg PO DAILY 03/02/16 Carvedilol 25 mg PO BID 03/02/16 Insulin Glulisine [Apidra Solostar] 100 unit SQ ASDIR 03/02/16 Linagliptin/Metformin HCl [Jentadueto 2.5 mg-1000 mg Tab] 1 each PO BID Omeprazole 40 mg PO DAILY 03/02/16 Prasugrel HCl [Effient] 5 mg PO DAILY 03/02/16 Ranolazine [Ranexa] 500 mg PO BID #60 tab.er.12h 05/06/17 Ergocalciferol [Vitamin D2] 50,000 unit PO Q7D@1000 01/26/19 Glipizide [Glipizide Xl] 10 mg PO ASDIR 01/26/19 Sacubitril/Valsartan [Entresto 49 mg-51 mg Tablet] 1 each PO BID 01/26/19 Spironolactone [Aldactone] 25 mg PO DAILY 01/26/19 Tamsulosin HCl [Flomax] 0.4 mg PO DAILY 01/26/19 Physical Examination Vital Signs: Vital Signs Temperature 99.0 F 01/26/19 13:11 Pulse Rate 109 H 01/26/19 15:29 Respiratory Rate 18 01/26/19 15:29 Blood Pressure 100/65 01/26/19 15:29 O2 Sat by Pulse Oximetry (%) 98 01/26/19 15:29 Labs: CBC, BMP 01/26/19 11:09 01/26/19 11:09 Imaging - Results Cat Scan: Pending Problem List - Problems (1) Sepsis Assessment/Plan: icu monitoring hypotensive despite fluids will need iv pressors via cnetral line- possibly cardiogenic shock keep MAP> 65 and cvp 8-10 broad spectrum iv abx ivf trend lactic acid folow up cultures Code(s): A41.9 - SEPSIS, UNSPECIFIED ORGANISM Qualifiers: Sepsis type: sepsis due to unspecified organism Sepsis acute organ dysfunction status: unspecified Qualified Code(s): A41.9 - Sepsis, unspecified organism (2) CAD (coronary artery disease) Assessment/Plan: on asprin and pasugrel cardiology consult echo Code(s): I25.10 - ATHSCL HEART DISEASE OF [place] OF [place] CORONARY ARTERY W/O ANG PCTRS Qualifiers: Coronary Disease-Associated Artery/Lesion type: [place] artery [place] vs. transplanted heart: [place] heart Associated angina: without angina Qualified Code(s): I25.10 - Atherosclerotic heart disease of [place] coronary artery without angina pectoris (3) Diabetes Assessment/Plan: bgm sliding scale insulin hold metformin given inc in lactic acid Code(s): E11.9 - TYPE 2 DIABETES MELLITUS WITHOUT COMPLICATIONS Qualifiers: Diabetes mellitus type: type 2 Diabetes mellitus snf insulin use: with snf use (4) Heart failure Assessment/Plan: hold cardic medication given low BP Code(s): I50.9 - HEART FAILURE, UNSPECIFIED Qualifiers: Heart failure type: systolic (5) Bladder cancer Assessment/Plan: urology evaluation Code(s): C67.9 - MALIGNANT NEOPLASM OF BLADDER, UNSPECIFIED
[2019-01-26] MEDS ORDERED: MEROPENEM 1 GM in DEXTROSE 5%-WATER 100 ML IVPB ONE (16:01)
[2019-01-26] MEDS ORDERED: MEROPENEM 1 GM VIAL (RESTRICTED TO ID) IVPB ONE (16:25)
--- NOTE | 2019-01-26 16:29 | CON.GU ---
Consult Consult Specialty:: Referred by:: ED Reason for Consultation:: UTI, bladder cancer - History of Present Illness Chief Complaint: uti History of Present Illness: 68 year old male with a history of bladder cancer who had a cystoscopy at [facility] earlier this week. He developed fevers and is admitted no with hypotension. He is currently on pressors and was started on antibiotics. - History Source History Provided By: Patient, Medical Record - Past Medical History Cardio/Vascular: Yes: CAD (s.p stenting), HTN, Hyperlipdemia Gastrointestinal: Yes: GERD Renal/: Yes: Cancer (bladder) Endocrine: Yes: Diabetes Mellitus - Past Surgical History Past Surgical History: Yes: Cholecystectomy, Hernia Repair - Alcohol/Substance Use Hx Alcohol Use: No - Smoking History Smoking history: Unknown if ever smoked Have you smoked in the past 12 months: Yes If you are a former smoker, when did you quit?: 3 years ago Home Medications - Allergies Allergies/Adverse Reactions: Allergies Allergy/AdvReac Type Severity Reaction Status Date / Time No Known Allergies Allergy Verified 12/14/17 13:48 - Home Medications Home Medications: Ambulatory Orders Aspirin [ASA -] 81 mg PO DAILY 03/02/16 Carvedilol 25 mg PO BID 03/02/16 Insulin Glulisine [Apidra Solostar] 100 unit SQ ASDIR 03/02/16 Linagliptin/Metformin HCl [Jentadueto 2.5 mg-1000 mg Tab] 1 each PO BID Omeprazole 40 mg PO DAILY 03/02/16 Prasugrel HCl [Effient] 5 mg PO DAILY 03/02/16 Ranolazine [Ranexa] 500 mg PO BID #60 tab.er.12h 05/06/17 Ergocalciferol [Vitamin D2] 50,000 unit PO Q7D@1000 01/26/19 Glipizide [Glipizide Xl] 10 mg PO ASDIR 01/26/19 Sacubitril/Valsartan [Entresto 49 mg-51 mg Tablet] 1 each PO BID 01/26/19 Spironolactone [Aldactone] 25 mg PO DAILY 01/26/19 Tamsulosin HCl [Flomax] 0.4 mg PO DAILY 01/26/19 Review of Systems - Review of Systems Constitutional: reports: Diaphoresis, Fever, Night Sweats Genitourinary: reports: Burning, Dysuria, Frequency, Pain Physical Exam- Vital Signs: Vital Signs Temperature 99.0 F 01/26/19 13:11 Pulse Rate 109 H 01/26/19 15:29 Respiratory Rate 18 01/26/19 15:29 Blood Pressure 100/65 01/26/19 15:29 O2 Sat by Pulse Oximetry (%) 98 01/26/19 15:29 Gastrointestinal: Yes: Soft Renal/: No: CVA Tenderness - Left, CVA Tenderness - Right, Phelps Present Labs: CBC, BMP 01/26/19 11:09 01/26/19 11:09 Assessment/Plan bladder cancer urosepsis after cystoscopy recommend- IV abx, IV fluids. needs phelps cath and CT scan abd/pelvis to drain the urine and r/o upper tract obstruction.
[2019-01-26] MEDS: INSULIN SLIDING SCALE (NOVOLOG) 1 VIAL SQ SCH ×2 (16:50→21:11)
--- NOTE | 2019-01-26 17:46 | CONS ---
INFECTIOUS DISEASE CONSULTATION DATE OF CONSULTATION: 01/26/2019 REQUESTING PHYSICIAN: Bijan Vences MD This is a 68-year-old man, past medical history of coronary artery disease, bladder cancer, BPH, stf-znoxzob-gkrizkrzs diabetes, hypertension, hyperlipidemia, who no longer on any bladder treatment, but underwent a cystoscopy on Tuesday. He went home after the procedure. He was well. morning, he awoke and he had chills and weakness. He was unable to eat. He had dry heaves. He spoke to his doctor who advised admission, but he stayed home. He did take a dose of Levaquin 750 mg last night, which was apparently prescribed by his son after speaking with the urologist who did the procedure. His symptoms continued. He had generalized weakness to the point that he was unable to ambulate, and he was brought to the emergency room today. He has a history of bladder cancer for 3 years. He is not on any treatment now , and he is doing surveillance. He last took antibiotics 3 months ago when he was in [place] and had diarrhea. He had something with him and apparently took the antibiotics and got better, and then, for the rest of his stay in [place], which was for 2 months, he was well. He returned to the [place] 3 weeks ago and has been feeling fine. PAST MEDICAL HISTORY: Notable for the bladder cancer. He has a history of BPH. He has a history of CHF and CAD. He has had 4 stents placed. He has arg-afzpjor-lbsqbomkv diabetes, hypertension, hypercholesterolemia, and he is status post laparoscopic cholecystectomy which was done in November 2017. He has also had a hernia repair in the past on the right side. ALLERGIES: He has no known drug allergies. MEDICATIONS AT HOME: Include insulin, Entresto, glipizide, aspirin, Flomax, Aldactone, Ranexa, Jentadueto, vitamin D, Coreg, omeprazole, and Effient. He is followed by Aleja Brown MD. SOCIAL HISTORY: He is . He lives with his . There is no history of any substance use. There is no history of any alcohol use, and he stopped smoking a year ago. REVIEW OF SYSTEMS: He notes he has some right inguinal pain which is intermittent. He has no other symptoms except for the symptoms described in the HPI. PHYSICAL EXAMINATION: Vital Signs: Temperature is 99. He feels warm. He is perfusing well. His pulse is 109. Blood pressure is 92/58. Respiratory rate is 18. He is saturating 99% on room air. General: He is lying flat, in no distress. He has received 3 L of fluid. He is alert and responsive. HEENT: He is normocephalic. His eyes are anicteric. Neck: Supple. Lungs: Clear to auscultation. Heart: Regular rate and rhythm. Abdomen: Soft, nontender. Genitalia: He has no testicular swelling. He has no penile swelling. Inguinal Area: There is no reproducible pain. Extremities: Without edema. They are warm. Skin: He has no cyanosis, and he has no skin ulcerations. LABORATORY DATA: White count is 12.2, hemoglobin 12.1, platelets are 136. BUN is 20 and creatinine 1.3. His liver tests are normal. His lactic acid is 3.4. His urinalysis has 1+ leukocyte esterase with 16 white cells, and cultures have been sent and are pending. He had a chest x-ray in the ER, that shows no acute chest pathology. In summary, this is a 68-year-old man with: 1. Sepsis. I suspect genitourinary. I would switch him to meropenem to cover for resistant extended spectrum beta-lactamase organisms, especially since he has traveled and just returned 3 weeks ago from [place]. Follow up his cultures. Check renal/bladder sonogram for obstruction. Check a CAT of the abdomen and pelvis. The UA is positive for leukocyte esterase with 16 white cells. This may represent a partially treated urinary tract infection. He has no evidence of any pulmonary infection, and he does not have a surgical abdomen. 2. History of bladder cancer, currently being monitored. 3. History of benign prostatic hypertrophy. 4. History of coronary artery disease, congestive heart failure. Troponin was negative in the ER. He was given 3 L of fluid, and given the lack of response of his blood pressure, central lines will be placed. He will be transferred to the ICU for pressors and will continue on antibiotics. Case was discussed at length with the ICU team and with the family at the bedside. Thirty-five minutes spent in the care of this critically ill patient. ALVAREZ BRICENO M.D. [id number] MTDD
[2019-01-26] MEDS ORDERED: PIPERACILLIN/TAZOB 3.375 GM 3.375 GM in DEXTROSE 5%-WATER - 50 ML IVPB SCH (18:00)
[2019-01-26] MEDS: MEROPENEM 1 GM in DEXTROSE 5%-WATER 100 ML IVPB SCH (18:14)
[2019-01-26] MEDS: RANOLAZINE E.R. 500 MG TABLET (FP) PO SCH (21:10)
[2019-01-26] MEDS: ACETAMINOPHEN 325 MG TABLET (FP) PO PRN (21:11)
[2019-01-26] MEDS: HEPARIN NA (PORCINE) 5,000 UNITS/ML 1ML VIAL SQ SCH (21:11)
[2019-01-26] MEDS: CHLORHEXIDINE GLUCONATE 4% CLEANSER FOR DECOLONIZATION TP SCH (21:11)
[2019-01-26] MEDS: MUPIROCIN 2% TOPICAL OINTMENT FOR DECOLONIZATION NS SCH (21:35)
[2019-01-26] MEDS ORDERED: CARVEDILOL 25 MG TABLET (FP) PO SCH (22:00)
[2019-01-26] MEDS ORDERED: SODIUM CHLORIDE 250 ML IV STA (22:05)
[2019-01-26] MEDS ORDERED: NOREPINEPHRINE BITARTRATE 4 MG/4 ML ML IV ONE (22:57)
[2019-01-26] MEDS: NOREPINEPHRINE BITARTRATE 4,000 MCG in DEXTROSE 5%-WATER - 496 ML IV SCH (23:00)
[2019-01-27] MEDS ORDERED: DEXTROSE 5%-WATER 100 ML IVPB ONE ×3 (00:55→15:34)
[2019-01-27] MEDS ORDERED: MEROPENEM 1 GM VIAL (RESTRICTED TO ID) IVPB ONE ×3 (00:55→15:34)
[2019-01-27] MEDS: MEROPENEM 1 GM in DEXTROSE 5%-WATER 100 ML IVPB SCH ×3 (01:04→17:03)
[2019-01-27] MEDS: VANCOMYCIN 1 GRAM (PRE-DOCKED) 1,000 MG/250 ML BAG IVPB SCH ×2 (01:04→13:30)
[2019-01-27] MEDS: ACETAMINOPHEN 325 MG TABLET (FP) PO PRN (04:06)
[2019-01-27] MEDS ORDERED: SODIUM CHLORIDE 250 ML IV STA (05:54)
[2019-01-27 06:25] LABS: BASO % 0.2 % (0-2.0); HEMATOCRIT 33.2 % (35.4-49); HEMOGLOBIN 11.2 GM/dL (11.7-16.9); LYMPH % 6.8 % (8-40); MCH 24.5 pg (25.7-33.7); MCHC 33.7 g/dl (32.0-35.9); MEAN CELL VOLUME 72.7 fl (80-96); PLATELET COUNT 136 K/MM3 (134-434); RBC 4.56 M/mm3 (4.00-5.60); RDW 16.8 % (11.9-15.9); WHITE BLOOD COUNT 11.9 K/mm3 (4.0-10.0)
[2019-01-27] MEDS: HEPARIN NA (PORCINE) 5,000 UNITS/ML 1ML VIAL SQ SCH ×3 (06:36→21:50)
[2019-01-27] MEDS: INSULIN SLIDING SCALE (NOVOLOG) 1 VIAL SQ SCH ×4 (06:36→22:03)
[2019-01-27 07:01] LABS: IRON SERUM 9 ug/dL (50-175); TOTAL IRON BINDING CAPACITY 249 ug/dL (250-450)
[2019-01-27 07:02] LABS: ALBUMIN 2.7 g/dl (3.4-5.0); BILIRUBIN,TOTAL 1.4 mg/dL (0.2-1); BLOOD UREA NITROGEN 13.5 mg/dL (7-18); CALCIUM 7.7 mg/dL (8.5-10.1); MAGNESIUM 0.9 mg/dL (1.8-2.4); PHOSPHOROUS 2.1 mg/dL (2.5-4.9); POTASSIUM 3.2 mmol/L (3.5-5.1); TOT PROT 5.5 g/dl (6.4-8.2)
[2019-01-27] MEDS ORDERED: POTASSIUM CHLORIDE ORAL LIQUID 20 MEQ/15 ML PO ONE (07:59)
--- NOTE | 2019-01-27 08:03 | PN ---
Progress Note, Physician Chief Complaint: Urosepsis History of Present Illness: ct scan with soft tissue stranding prostate and bilateral kidneys suggestive of prostatis and bilateral pyelonephritis/nephritis On IV abx Seen by ID - Current Medication List Current Medications: Active Medications Acetaminophen (Tylenol -) 650 mg PO Q6H PRN PRN Reason: Fever Or Pain Last Admin: 01/27/19 04:06 Dose: 650 mg Aspirin (Asa -) 81 mg PO DAILY [facility] Chlorhexidine Gluconate (Hibiclens For Decolonization -) 1 applic TP HS [facility] Last Admin: 01/26/19 21:11 Dose: 1 applic Heparin Sodium (Porcine) (Heparin -) 5,000 unit SQ TID [facility] Last Admin: 01/27/19 06:36 Dose: 5,000 unit Meropenem 1 gm/ Dextrose 100 mls @ 200 mls/hr IVPB Q8H-IV [facility] Last Admin: 01/27/19 01:04 Dose: 200 mls/hr Vancomycin HCl (Vancomycin (Pre-Docked)) 1,000 mg in 250 mls @ 166.667 mls/hr IVPB Q12H [facility]; Protocol Last Admin: 01/27/19 01:04 Dose: 166.667 mls/hr Norepinephrine Bitartrate 4, (000 mcg/ Dextrose) 500 mls @ 37.5 mls/hr IV TITR [facility]; Protocol Last Admin: 01/26/19 23:00 Dose: 5 mcg/min, 37.5 mls/hr Sodium Chloride (Normal Saline -) 250 mls @ 250 mls/hr IV ASDIR STA Stop: 01/27/19 06:53 Last Admin: 01/27/19 06:36 Dose: 250 mls/hr Influenza Virus Vaccine Quadrival (Flulaval Quad [id number]) 60 mcg IM .ONCE ONE Stop: 01/27/19 10:01 Insulin Aspart (Novolog Vial Sliding Scale -) 1 vial SQ ACHS [facility]; Protocol Last Admin: 01/27/19 06:36 Dose: Not Given Mupirocin (Bactroban Ointment (For Decolonization) -) 1 applic NS BID [facility] Stop: 01/31/19 21:59 Last Admin: 01/26/19 21:35 Dose: 1 applic Potassium Chloride (Potassium Chloride Oral Liquid) 40 meq PO ONCE ONE Stop: 01/27/19 08:00 Prasugrel (Effient -) 5 mg PO DAILY [facility] Ranolazine (Ranexa -) 500 mg PO BID [facility] Last Admin: 01/26/19 21:10 Dose: 500 mg Tamsulosin HCl (Flomax -) 0.4 mg PO DAILY@0830 [facility] - Objective Vital Signs: Vital Signs Temperature 98.5 F 01/27/19 07:00 Pulse Rate 90 01/27/19 07:00 Respiratory Rate 25 H 01/27/19 07:00 Blood Pressure 107/71 01/27/19 07:00 O2 Sat by Pulse Oximetry (%) 93 L 01/26/19 21:00 Constitutional: Yes: Well Nourished, No Distress, Calm Cardiovascular: Yes: Regular Rate and Rhythm Respiratory: Yes: Regular Gastrointestinal: Yes: Normal Bowel Sounds, Soft, Abdomen, Obese Genitourinary: Yes: [place] Present Musculoskeletal: Yes: WNL Extremities: Yes: WNL Edema: No Peripheral Pulses WNL: Yes Neurological: Yes: Alert, Oriented Psychiatric: Yes: Alert, Oriented Labs: CBC, BMP 01/27/19 05:30 01/27/19 05:30 INR, PTT INR 1.59 (0.83-1.09) H 01/26/19 11:09 Assessment/Plan (1) Sepsis Assessment/Plan: -Just tapered of levophed -maintain MAP> 65 and cvp 8-10 -IV abx -CT abd/pelvis scan with soft tissue stranding prostate and bilateral kidneys suggestive of prostatis and bilateral pyelonephritis/nephritis Code(s): A41.9 - SEPSIS, UNSPECIFIED ORGANISM Qualifiers: Sepsis type: sepsis due to unspecified organism Sepsis acute organ dysfunction status: unspecified Qualified Code(s): A41.9 - Sepsis, unspecified organism (2) CAD (coronary artery disease) Assessment/Plan: -on asprin and pasugrel -cardiology consult -01/26/2019 Echo: Normal LV and RV size and fxn LVEF 50-55%, trace-mild MR, mild TR Code(s): I25.10 - ATHSCL HEART DISEASE OF [place] CORONARY ARTERY W/O ANG PCTRS Qualifiers: Coronary Disease-Associated Artery/Lesion type: [place] artery [place] vs. 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
[2019-01-27] MEDS: TAMSULOSIN HCL 0.4 MG CAP PO SCH (08:35)
--- NOTE | 2019-01-27 08:38 | PN ---
Progress Note (short form) - Note Progress Note: awake and alert phelps placed yesterday ct scan with soft tissue stranding prostate and bilateral kidneys suggestive of prostatis and bilateral pyelonephritis/nephritis eating well now no vomiting +BM tmas 102 with chills overnight pressors being tapered Vital Signs Period Temp Pulse Resp BP Sys/Gaspar Pulse Ox Last 24 Hr 98.5 F-102 F 87-113 18-28 78-122/48-81 93-99 cor-rrr llungs clear abd soft,nt ext no edema phelps clear urine right ij cvp CBC, BMP 01/27/19 05:30 01/27/19 05:30 cultures pending a/p sepsis ct scan suggestive of prostatiits/pyelo continue meropenem/vanco pending cultures overall improved, pressors being tapered renal function is good appetite has returned history of bladder cancer- currently being monitored history of BPH history of CAD/CHF d/w son at bedside
--- NOTE | 2019-01-27 09:11 | PN ---
Progress Note, Physician History of Present Illness: 68-year-old male with h/o CAD post VA s/p multivessel stents, ischemic cardiomyopathy with improved LVEF 50-55%, NIDDM, HTN, HLD, bladder CA (chemo x1 ) and BPH presented with generalized weakness, rigors, chills, fevers, dysuria, nausea and dry emesis since resolved for two days after cystoscopy. He took levaquin x 1 as an outpatient. Denies chest pain, dyspnea, diarrhea, palpitations, orthopnea, PND or LE edema. Given 3 liters ivf and vancomycin and zosyn in the ED with improvement of hemodynamics. Last seen in office 2018. - Current Medication List Current Medications: Active Medications Acetaminophen (Tylenol -) 650 mg PO Q6H PRN PRN Reason: Fever Or Pain Last Admin: 01/27/19 04:06 Dose: 650 mg Aspirin (Asa -) 81 mg PO DAILY [facility] Chlorhexidine Gluconate (Hibiclens For Decolonization -) 1 applic TP HS [facility] Last Admin: 01/26/19 21:11 Dose: 1 applic Heparin Sodium (Porcine) (Heparin -) 5,000 unit SQ TID [facility] Last Admin: 01/27/19 06:36 Dose: 5,000 unit Meropenem 1 gm/ Dextrose 100 mls @ 200 mls/hr IVPB Q8H-IV [facility] Last Admin: 01/27/19 01:04 Dose: 200 mls/hr Vancomycin HCl (Vancomycin (Pre-Docked)) 1,000 mg in 250 mls @ 166.667 mls/hr IVPB Q12H [facility]; Protocol Last Admin: 01/27/19 01:04 Dose: 166.667 mls/hr Norepinephrine Bitartrate 4, (000 mcg/ Dextrose) 500 mls @ 37.5 mls/hr IV TITR [facility]; Protocol Last Admin: 01/26/19 23:00 Dose: 5 mcg/min, 37.5 mls/hr Influenza Virus Vaccine Quadrival (Flulaval Quad ) 60 mcg IM .ONCE ONE Stop: 01/27/19 10:01 Insulin Aspart (Novolog Vial Sliding Scale -) 1 vial SQ ACHS [facility]; Protocol Last Admin: 01/27/19 06:36 Dose: Not Given Mupirocin (Bactroban Ointment (For Decolonization) -) 1 applic NS BID [facility] Stop: 01/31/19 21:59 Last Admin: 01/26/19 21:35 Dose: 1 applic Prasugrel (Effient -) 5 mg PO DAILY [facility] Ranolazine (Ranexa -) 500 mg PO BID [facility] Last Admin: 01/26/19 21:10 Dose: 500 mg Tamsulosin HCl (Flomax -) 0.4 mg PO DAILY@0830 [facility] Last Admin: 01/27/19 08:35 Dose: 0.4 mg - Objective Vital Signs: Vital Signs Temperature 98.5 F 01/27/19 07:00 Pulse Rate 90 01/27/19 07:00 Respiratory Rate 25 H 01/27/19 07:00 Blood Pressure 107/71 01/27/19 07:00 O2 Sat by Pulse Oximetry (%) 93 L 01/26/19 21:00 Eyes: Yes: WNL, Conjunctiva Clear, EOM Intact HENT: Yes: WNL, Atraumatic, Normocephalic Neck: Yes: WNL, Supple, Trachea Midline Cardiovascular: Yes: WNL, Regular Rate and Rhythm Respiratory: Yes: WNL, Regular, CTA Bilaterally Gastrointestinal: Yes: WNL, Normal Bowel Sounds Genitourinary: Yes: WNL Musculoskeletal: Yes: WNL Extremities: Yes: WNL Edema: No Integumentary: Yes: WNL Neurological: Yes: WNL, Alert, Oriented ...Motor Strength: WNL Psychiatric: Yes: WNL Labs: CBC, BMP 01/27/19 05:30 01/27/19 05:30 INR, PTT INR 1.59 (0.83-1.09) H 01/26/19 11:09 Problem List - Problems (1) Heart failure Code(s): I50.9 - HEART FAILURE, UNSPECIFIED Qualifiers: Heart failure type: systolic (2) Sepsis Code(s): A41.9 - SEPSIS, UNSPECIFIED ORGANISM Qualifiers: Sepsis type: sepsis due to unspecified organism Sepsis acute organ dysfunction status: unspecified Qualified Code(s): A41.9 - Sepsis, unspecified organism (3) Septic shock Code(s): A41.9 - SEPSIS, UNSPECIFIED ORGANISM; R65.21 - SEVERE SEPSIS WITH SEPTIC SHOCK (4) Abnormal liver enzymes Code(s): R74.8 - ABNORMAL LEVELS OF OTHER SERUM ENZYMES (5) Bladder cancer Code(s): C67.9 - MALIGNANT NEOPLASM OF BLADDER, UNSPECIFIED (6) CAD (coronary artery disease) Code(s): I25.10 - ATHSCL HEART DISEASE OF [place] CORONARY ARTERY W/O ANG PCTRS Qualifiers: Coronary Disease-Associated Artery/Lesion type: [place] artery [place] vs. transplanted heart: [place] heart Associated angina: without angina Qualified Code(s): I25.10 - Atherosclerotic heart disease of [place] coronary artery without angina pectoris (7) Cholecystitis Code(s): K81.9 - CHOLECYSTITIS, UNSPECIFIED (8) Cholelithiasis Code(s): K80.20 - CALCULUS OF GALLBLADDER W/O CHOLECYSTITIS W/O OBSTRUCTION Qualifiers: Cholelithiasis location: gallbladder Cholecystitis presence: with cholecystitis Cholecystitis acuity: acute and chronic Biliary obstruction: without biliary obstruction Qualified Code(s): K80.12 - Calculus of gallbladder with acute and chronic cholecystitis without obstruction (9) Chronic cholecystitis Code(s): K81.1 - CHRONIC CHOLECYSTITIS (10) Diabetes Code(s): E11.9 - TYPE 2 DIABETES MELLITUS WITHOUT COMPLICATIONS Qualifiers: Diabetes mellitus type: type 2 Diabetes mellitus 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 (11) Elevated liver enzymes Code(s): R74.8 - ABNORMAL LEVELS OF OTHER SERUM ENZYMES (12) Epigastric abdominal pain Code(s): R10.13 - EPIGASTRIC PAIN (13) Hyperlipidemia associated with type 2 diabetes mellitus Code(s): E11.69 - TYPE 2 DIABETES MELLITUS WITH OTHER SPECIFIED COMPLICATION; E78.5 - HYPERLIPIDEMIA, UNSPECIFIED (14) Hypertensive cardiomyopathy Code(s): I11.9 - HYPERTENSIVE HEART DISEASE WITHOUT HEART FAILURE; I43 - CARDIOMYOPATHY IN DISEASES CLASSIFIED ELSEWHERE Qualifiers: Heart failure presence: without heart failure Qualified Code(s): I11.9 - Hypertensive heart disease without heart failure; I43 - Cardiomyopathy in diseases classified elsewhere (15) Ischemic cardiomyopathy Code(s): I25.5 - ISCHEMIC CARDIOMYOPATHY (16) Liver lesion Code(s): K76.9 - LIVER DISEASE, UNSPECIFIED (17) Pre-operative cardiovascular examination Code(s): Z01.810 - ENCOUNTER FOR PREPROCEDURAL CARDIOVASCULAR EXAMINATION (18) S/P coronary artery stent placement Code(s): Z95.5 - PRESENCE OF CORONARY ANGIOPLASTY IMPLANT AND GRAFT Assessment/Plan Assessment/Plan 01/26/2019 Echo: Normal LV and RV size and fxn LVEF 50-55%, trace-mild MR, mild TR 01/03/2017 Cardiac MRI LVEF 40% with anteroseptal and anterior infarcts 11/29/2016 LHC: LVEF 35%, patent LADstent, occluded LCx-OM1 not amenable to intervention, and patent prox-mid RCA stent 03/01/2016 Echo: Prob preserved LV fxn with anterior HK, mild MR, TR 03/01/2016 P-Myoview: Large lateral, inferolateral infarct with small zone periinfarct ischemia, LVEF 31% 1. Sepsis source post cystoscopy h/o bladder cancer 2. CAD s/p VA, multivessel PCI 3. Ischemic cardiomyopathy with improved LVEF 4. HTN/HCVD 5. Type 2 DM 6. Hyperlipidemia 7. PAD 8. s/p lap cholecystec 9. BPH P:1. Abx course per C&S, IVF, pressors as needed to maintain MAP>65 mmHg 2. Renal US and CT scan abd/pelvis to r/o upper tract obstruction, phelps cath 3. Continue ASA 81, Effient 5 qd, Lipitor 40 qd, Ranexa 500 bid, Vascepa 2 bid. Resume carvedilol 25 bid and replace Entresto with Valsartan 80 qd as hemodynamics tolerate since LVEF has recovered. 4. DVT and GI prophylaxis coverage for dr. Sudha ceballos time spent 35 min
[2019-01-27] MEDS: ASPIRIN 81 MG CHEWABLE TABLETS PO SCH (09:19)
[2019-01-27] MEDS: RANOLAZINE E.R. 500 MG TABLET (FP) PO SCH ×2 (09:19→21:50)
[2019-01-27] MEDS: MUPIROCIN 2% TOPICAL OINTMENT FOR DECOLONIZATION NS SCH ×2 (09:22→21:50)
[2019-01-27] MEDS ORDERED: PT OWN MED DRAWER 7, Y5N ONE ×3 (09:24→15:52)
[2019-01-27] MEDS ORDERED: FLU VACCINE QUAD 60 MCG/0.5 ML (MDV 19-20) IM ONE (10:00)
--- NOTE | 2019-01-27 10:02 | EKG ---
Test Reason : Blood Pressure : / mmHG Vent. Rate : 113 BPM Atrial Rate : 113 BPM P-R Int : 166 ms QRS Dur : 088 ms QT Int : 328 ms P-R-T Axes : 000 164 109 degrees QTc Int : 449 ms SINUS TACHYCARDIA POSSIBLE INFERIOR INFARCT , AGE UNDETERMINED NONSPECIFIC ST ABNORMALITY ABNORMAL ECG Confirmed by MALCOLM JOSEPH MD ([id number]) on 01/27/2019 10:02:23 AM Referred By: Confirmed By:MALCOLM JOSEPH MD
[2019-01-27] MEDS ORDERED: LIDOCAINE HCL 2% JELLY 10 ML CARTRIDGE UR PRN (11:00)
[2019-01-27] MEDS: PRASUGREL HCL 5 MG TAB PO SCH (11:22)
--- NOTE | 2019-01-27 11:25 | PN ---
Progress Note (short form) - Note Progress Note: Seen and examined in the ICU Off Ne drip this AM Cultures: (+) NLFGNR in urine, blood cultures pending febrile plced on Meropenem and vanco Denies: cp/n/v/VIDES/SOB Current Medications Acetaminophen (Tylenol -) 650 mg PO Q6H PRN PRN Reason: Fever Or Pain Last Admin: 01/27/19 04:06 Dose: 650 mg Aspirin (Asa -) 81 mg PO DAILY [facility] Last Admin: 01/27/19 09:19 Dose: 81 mg Chlorhexidine Gluconate (Hibiclens For Decolonization -) 1 applic TP HS [facility] Last Admin: 01/26/19 21:11 Dose: 1 applic Heparin Sodium (Porcine) (Heparin -) 5,000 unit SQ TID [facility] Last Admin: 01/27/19 06:36 Dose: 5,000 unit Meropenem 1 gm/ Dextrose 100 mls @ 200 mls/hr IVPB Q8H-IV [facility] Last Admin: 01/27/19 09:19 Dose: 200 mls/hr Vancomycin HCl (Vancomycin (Pre-Docked)) 1,000 mg in 250 mls @ 166.667 mls/hr IVPB Q12H [facility]; Protocol Last Admin: 01/27/19 01:04 Dose: 166.667 mls/hr Norepinephrine Bitartrate 4, (000 mcg/ Dextrose) 500 mls @ 37.5 mls/hr IV TITR [facility]; Protocol Last Titration: 01/27/19 09:00 Dose: 0 mcg/min, 0 mls/hr Insulin Aspart (Novolog Vial Sliding Scale -) 1 vial SQ ACHS [facility]; Protocol Last Admin: 01/27/19 06:36 Dose: Not Given Lidocaine HCl (Xylocaine 2% Uro-Jet) 10 ml UR BID PRN PRN Reason: PAIN Mupirocin (Bactroban Ointment (For Decolonization) -) 1 applic NS BID [facility] Stop: 01/31/19 21:59 Last Admin: 01/27/19 09:22 Dose: 1 applic Polysaccharide Iron Complex (Niferex-150 -) 150 mg PO DAILY [facility] Prasugrel (Effient -) 5 mg PO DAILY [facility] Ranolazine (Ranexa -) 500 mg PO BID [facility] Last Admin: 01/27/19 09:19 Dose: 500 mg Tamsulosin HCl (Flomax -) 0.4 mg PO DAILY@0830 [facility] Last Admin: 01/27/19 08:35 Dose: 0.4 mg Vital Signs Period Temp Pulse Resp BP Sys/Gaspar Pulse Ox Last 24 Hr 98.5 F-102 F 87-113 18-28 78-126/48-81 93-99 Intake & Output 01/24/19 01/25/19 01/26/19 01/27/19 23:59 23:59 23:59 23:59 Intake Total 250 1475 Output Total 1775 2200 Balance -1525 -725 Weight 205 kg 95.906 kg Exam: General: OOB to chair, no distress AOx3 HEENT: PERRL, no JVD, CVC c/d/i Pulm: CTA CV: RRR Abd: SNTND +BS Ext: WWP no edema Neuro: CN grossly intact CBC, BMP 01/27/19 05:30 01/27/19 05:30 Microbiology 01/26/19 12:53 Urine - Urine Clean Catch Urine Culture - Preliminary Non Lactose Fermenting Gnb Blood cultures: pending IMP: UTI Resolved Septic Shock Recent cystoscopy 2 days ago CAD S/P PCI (on asa, plavix) stent x 4 History of systolic CHF (last EF apparently 30% per son who is a doctor in [place]) NIDDM HTN HLD Bladder CA (chemo x1) BPH. ID following Meropenem for UTI, can likely d/c vanco f/u blood culutres IVF resuscitation as needed Currently off pressors, will d/c TLC if BP remains stable O2 as needed ECHO: EF 50-55% w/ LVH Strict I & O, will d/c phelps, cont BPH meds Cont ICU monitoring overnight given recent pressor requirements, will down grade in AM if stable Boerem ACNP Pulm/CCM CCT: 40m
[2019-01-27 13:31] LABS: ANISOCYTOSIS 1+; MACROCYTOSIS 0; OVALOCYTE 1+; PLATELET ESTIMATE DECREASED
[2019-01-27] MEDS ORDERED: NAPH,MB-DB/K PH,MBDB POWDER PACKET PO ONE (14:50)
[2019-01-27] MEDS ORDERED: MAGNESIUM SULF 50% (8.12 MEQ/2 ML-1 GM VIAL) IVPB ONE (15:00)
[2019-01-27] MEDS: IRON POLYSACCHARIDES 150 MG CAPSULE PO SCH (15:53)
[2019-01-27] MEDS: CHLORHEXIDINE GLUCONATE 4% CLEANSER FOR DECOLONIZATION TP SCH (21:53)
[2019-01-27] MEDS ORDERED: SACUBITRIL/VALSARTAN 49 MG-51 MG TABLET PO SCH (22:00)
[2019-01-28] MEDS ORDERED: DEXTROSE 5%-WATER 100 ML IVPB ONE ×2 (02:28→09:47)
[2019-01-28] MEDS ORDERED: MEROPENEM 1 GM VIAL (RESTRICTED TO ID) IVPB ONE ×2 (02:28→09:47)
[2019-01-28] MEDS: NOREPINEPHRINE BITARTRATE 4,000 MCG in DEXTROSE 5%-WATER - 496 ML IV SCH (02:31)
[2019-01-28] MEDS: MEROPENEM 1 GM in DEXTROSE 5%-WATER 100 ML IVPB SCH ×2 (02:32→14:33)
[2019-01-28] MEDS: VANCOMYCIN 1 GRAM (PRE-DOCKED) 1,000 MG/250 ML BAG IVPB SCH (02:33)
[2019-01-28 06:38] LABS: BASO % 0.3 % (0-2.0); EOS % 0.2 % (0-4.5); HEMATOCRIT 32.2 % (35.4-49); HEMOGLOBIN 10.9 GM/dL (11.7-16.9); LYMPH % 9.3 % (8-40); MCH 24.4 pg (25.7-33.7); MEAN CELL VOLUME 71.9 fl (80-96); MEAN PLT VOLUME 8.7 fl (7.5-11.1); MONO % 6.6 % (3.8-10.2); NEUT % 83.6 % (42.8-82.8); PLATELET COUNT 137 K/MM3 (134-434); RBC 4.47 M/mm3 (4.00-5.60); WHITE BLOOD COUNT 9.7 K/mm3 (4.0-10.0)
[2019-01-28] MEDS: INSULIN SLIDING SCALE (NOVOLOG) 1 VIAL SQ SCH ×4 (06:53→21:38)
[2019-01-28] MEDS: HEPARIN NA (PORCINE) 5,000 UNITS/ML 1ML VIAL SQ SCH ×3 (06:53→21:38)
[2019-01-28 06:55] LABS: ALBUMIN 2.5 g/dl (3.4-5.0); BILIRUBIN,TOTAL 0.9 mg/dL (0.2-1); BLOOD UREA NITROGEN 12.5 mg/dL (7-18); CALCIUM 7.7 mg/dL (8.5-10.1); CREATININE 0.9 mg/dL (0.55-1.3); POTASSIUM 3.8 mmol/L (3.5-5.1); TOT PROT 5.8 g/dl (6.4-8.2)
[2019-01-28] MEDS ORDERED: PHENAZOPYRIDINE HCL 100 MG TABLET (FP) PO ONE (07:36)
[2019-01-28] MEDS ORDERED: PT OWN MED DRAWER 7, Y5N ONE ×3 (08:02→10:26)
--- NOTE | 2019-01-28 08:03 | PN ---
Progress Note, Physician Chief Complaint: Urosepsis History of Present Illness: ct scan with soft tissue stranding prostate and bilateral kidneys suggestive of prostatis and bilateral pyelonephritis/nephritis On IV abx Seen by ID - Current Medication List Current Medications: Active Medications Acetaminophen (Tylenol -) 650 mg PO Q6H PRN PRN Reason: Fever Or Pain Last Admin: 01/27/19 04:06 Dose: 650 mg Aspirin (Asa -) 81 mg PO DAILY [facility] Last Admin: 01/27/19 09:19 Dose: 81 mg Chlorhexidine Gluconate (Hibiclens For Decolonization -) 1 applic TP HS JEAN MARIE Last Admin: 01/27/19 21:53 Dose: 1 applic Heparin Sodium (Porcine) (Heparin -) 5,000 unit SQ TID JE[facility] Last Admin: 01/28/19 06:53 Dose: 5,000 unit Meropenem 1 gm/ Dextrose 100 mls @ 200 mls/hr IVPB Q8H-IV [facility] Last Admin: 01/28/19 02:32 Dose: 200 mls/hr Vancomycin HCl (Vancomycin (Pre-Docked)) 1,000 mg in 250 mls @ 166.667 mls/hr IVPB Q12H [facility]; Protocol Last Admin: 01/28/19 02:33 Dose: 166.667 mls/hr Norepinephrine Bitartrate 4, (000 mcg/ Dextrose) 500 mls @ 37.5 mls/hr IV TITR [facility]; Protocol Last Admin: 01/28/19 02:31 Dose: Not Given Insulin Aspart (Novolog Vial Sliding Scale -) 1 vial SQ ACHS [facility]; Protocol Last Admin: 01/28/19 06:53 Dose: Not Given Lidocaine HCl (Xylocaine 2% Uro-Jet) 10 ml UR BID PRN PRN Reason: PAIN Mupirocin (Bactroban Ointment (For Decolonization) -) 1 applic NS BID JEAN MARIE Stop: 01/31/19 21:59 Last Admin: 01/27/19 21:50 Dose: 1 applic Phenazopyridine HCl (Pyridium -) 200 mg PO ONCE ONE Stop: 01/28/19 07:37 Polysaccharide Iron Complex (Niferex-150 -) 150 mg PO DAILY [facility] Last Admin: 01/27/19 15:53 Dose: 150 mg Prasugrel (Effient -) 5 mg PO DAILY [facility] Last Admin: 01/27/19 11:22 Dose: 5 mg Ranolazine (Ranexa -) 500 mg PO BID [facility] Last Admin: 01/27/19 21:50 Dose: 500 mg Tamsulosin HCl (Flomax -) 0.4 mg PO DAILY@0830 [facility] Last Admin: 01/27/19 08:35 Dose: 0.4 mg - Objective Vital Signs: Vital Signs Temperature 99 F 01/28/19 06:00 Pulse Rate 84 01/28/19 06:00 Respiratory Rate 23 H 01/28/19 06:00 Blood Pressure 105/72 01/28/19 06:00 O2 Sat by Pulse Oximetry (%) 95 01/27/19 21:00 Constitutional: Yes: Well Nourished, No Distress, Calm Cardiovascular: Yes: Regular Rate and Rhythm Respiratory: Yes: Regular Gastrointestinal: Yes: WNL Genitourinary: Yes: Mckeon Present Musculoskeletal: Yes: WNL Extremities: Yes: WNL Edema: No Peripheral Pulses WNL: Yes Neurological: Yes: Alert, Oriented Psychiatric: Yes: Alert, Oriented Labs: CBC, BMP 01/28/19 05:15 01/28/19 05:15 INR, PTT INR 1.59 (0.83-1.09) H 01/26/19 11:09 Problem List - Problems (1) Anemia Assessment/Plan: -Stool OB negative -Iron% low -Started on Iron polysaccharide 1 tab po daily -Monitor H/H -No overt bleeding at this time Problems reviewed: Yes Code(s): D64.9 - ANEMIA, UNSPECIFIED Assessment/Plan (1) Sepsis Assessment/Plan: -Tapered off levophed -maintain MAP> 65 and cvp 8-10 -IV abx -CT abd/pelvis scan with soft tissue stranding prostate and bilateral kidneys suggestive of prostatis and bilateral pyelonephritis/nephritis Code(s): A41.9 - SEPSIS, UNSPECIFIED ORGANISM Qualifiers: Sepsis type: sepsis due to unspecified organism Sepsis acute organ dysfunction status: unspecified Qualified Code(s): A41.9 - Sepsis, unspecified organism (2) CAD (coronary artery disease) Assessment/Plan: -on aspirin and prasugrel -cardiology consult -01/26/2019 Echo: Normal LV and RV size and fxn LVEF 50-55%, trace-mild MR, mild TR Code(s): I25.10 - ATHSCL HEART DISEASE OF [place] CORONARY ARTERY W/O ANG PCTRS Qualifiers: Coronary Disease-Associated Artery/Lesion type: [place] artery [place] vs. 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
[2019-01-28] MEDS: TAMSULOSIN HCL 0.4 MG CAP PO SCH (08:13)
--- NOTE | 2019-01-28 09:01 | PN ---
Progress Note, Physician History of Present Illness: 68-year-old male with h/o CAD post TX s/p multivessel stents, ischemic cardiomyopathy with improved LVEF 50-55%, NIDDM, HTN, HLD, bladder CA (chemo x1 ) and BPH presented with generalized weakness, rigors, chills, fevers, dysuria, nausea and dry emesis since resolved for two days after cystoscopy. He took levaquin x 1 as an outpatient. Denies chest pain, dyspnea, diarrhea, palpitations, orthopnea, PND or LE edema. Given 3 liters ivf and vancomycin and zosyn in the ED with improvement of hemodynamics. Last seen in office 2018. - Current Medication List Current Medications: Active Medications Acetaminophen (Tylenol -) 650 mg PO Q6H PRN PRN Reason: Fever Or Pain Last Admin: 01/27/19 04:06 Dose: 650 mg Aspirin (Asa -) 81 mg PO DAILY [facility] Last Admin: 01/27/19 09:19 Dose: 81 mg Chlorhexidine Gluconate (Hibiclens For Decolonization -) 1 applic TP HS [facility]IE Last Admin: 01/27/19 21:53 Dose: 1 applic Heparin Sodium (Porcine) (Heparin -) 5,000 unit SQ TID [facility] Last Admin: 01/28/19 06:53 Dose: 5,000 unit Meropenem 1 gm/ Dextrose 100 mls @ 200 mls/hr IVPB Q8H-IV [facility] Last Admin: 01/28/19 02:32 Dose: 200 mls/hr Vancomycin HCl (Vancomycin (Pre-Docked)) 1,000 mg in 250 mls @ 166.667 mls/hr IVPB Q12H [facility]IE; Protocol Last Admin: 01/28/19 02:33 Dose: 166.667 mls/hr Norepinephrine Bitartrate 4, (000 mcg/ Dextrose) 500 mls @ 37.5 mls/hr IV TITR [facility]AN MARIE; Protocol Last Admin: 01/28/19 02:31 Dose: Not Given Insulin Aspart (Novolog Vial Sliding Scale -) 1 vial SQ ACHS [facility]AN [facility]IE; Protocol Last Admin: 01/28/19 06:53 Dose: Not Given Lidocaine HCl (Xylocaine 2% Uro-Jet) 10 ml UR BID PRN PRN Reason: PAIN Mupirocin (Bactroban Ointment (For Decolonization) -) 1 applic NS BID JEAN [facility]IE Stop: 10/09/19 21:59 Last Admin: 01/27/19 21:50 Dose: 1 applic Polysaccharide Iron Complex (Niferex-150 -) 150 mg PO DAILY [facility] Last Admin: 01/27/19 15:53 Dose: 150 mg Prasugrel (Effient -) 5 mg PO DAILY [facility] Last Admin: 01/27/19 11:22 Dose: 5 mg Ranolazine (Ranexa -) 500 mg PO BID [facility] Last Admin: 01/27/19 21:50 Dose: 500 mg Tamsulosin HCl (Flomax -) 0.4 mg PO DAILY@0830 [facility] Last Admin: 01/28/19 08:13 Dose: 0.4 mg - Objective Vital Signs: Vital Signs Temperature 99 F 01/28/19 06:00 Pulse Rate 84 01/28/19 06:00 Respiratory Rate 23 H 01/28/19 06:00 Blood Pressure 105/72 01/28/19 06:00 O2 Sat by Pulse Oximetry (%) 95 01/27/19 21:00 Eyes: Yes: WNL, Conjunctiva Clear, EOM Intact HENT: Yes: WNL, Atraumatic, Normocephalic Neck: Yes: WNL, Supple, Trachea Midline Cardiovascular: Yes: WNL, Regular Rate and Rhythm Respiratory: Yes: WNL, Regular, CTA Bilaterally Gastrointestinal: Yes: WNL, Normal Bowel Sounds Genitourinary: Yes: WNL Musculoskeletal: Yes: WNL Extremities: Yes: WNL Edema: No Integumentary: Yes: WNL Neurological: Yes: WNL, Alert, Oriented ...Motor Strength: WNL Psychiatric: Yes: WNL Labs: CBC, BMP 01/28/19 05:15 01/28/19 05:15 INR, PTT INR 1.59 (0.83-1.09) H 01/26/19 11:09 Problem List - Problems (1) Heart failure Code(s): I50.9 - HEART FAILURE, UNSPECIFIED Qualifiers: Heart failure type: systolic (2) Sepsis Code(s): A41.9 - SEPSIS, UNSPECIFIED ORGANISM Qualifiers: Sepsis type: sepsis due to unspecified organism Sepsis acute organ dysfunction status: unspecified Qualified Code(s): A41.9 - Sepsis, unspecified organism (3) Septic shock Code(s): A41.9 - SEPSIS, UNSPECIFIED ORGANISM; R65.21 - SEVERE SEPSIS WITH SEPTIC SHOCK (4) Abnormal liver enzymes Code(s): R74.8 - ABNORMAL LEVELS OF OTHER SERUM ENZYMES (5) Bladder cancer Code(s): C67.9 - MALIGNANT NEOPLASM OF BLADDER, UNSPECIFIED (6) CAD (coronary artery disease) Code(s): I25.10 - ATHSCL HEART DISEASE OF [place] CORONARY ARTERY W/O ANG PCTRS Qualifiers: Coronary Disease-Associated Artery/Lesion type: [place] artery [place] vs. transplanted heart: [place] heart Associated angina: without angina Qualified Code(s): I25.10 - Atherosclerotic heart disease of [place] coronary artery without angina pectoris (7) Cholecystitis Code(s): K81.9 - CHOLECYSTITIS, UNSPECIFIED (8) Cholelithiasis Code(s): K80.20 - CALCULUS OF GALLBLADDER W/O CHOLECYSTITIS W/O OBSTRUCTION Qualifiers: Cholelithiasis location: gallbladder Cholecystitis presence: with cholecystitis Cholecystitis acuity: acute and chronic Biliary obstruction: without biliary obstruction Qualified Code(s): K80.12 - Calculus of gallbladder with acute and chronic cholecystitis without obstruction (9) Chronic cholecystitis Code(s): K81.1 - CHRONIC CHOLECYSTITIS (10) Diabetes Code(s): E11.9 - TYPE 2 DIABETES MELLITUS WITHOUT COMPLICATIONS Qualifiers: Diabetes mellitus type: type 2 Diabetes mellitus fci insulin use: with fci use (11) Elevated liver enzymes Code(s): R74.8 - ABNORMAL LEVELS OF OTHER SERUM ENZYMES (12) Epigastric abdominal pain Code(s): R10.13 - EPIGASTRIC PAIN (13) Hyperlipidemia associated with type 2 diabetes mellitus Code(s): E11.69 - TYPE 2 DIABETES MELLITUS WITH OTHER SPECIFIED COMPLICATION; E78.5 - HYPERLIPIDEMIA, UNSPECIFIED (14) Hypertensive cardiomyopathy Code(s): I11.9 - HYPERTENSIVE HEART DISEASE WITHOUT HEART FAILURE; I43 - CARDIOMYOPATHY IN DISEASES CLASSIFIED ELSEWHERE Qualifiers: Heart failure presence: without heart failure Qualified Code(s): I11.9 - Hypertensive heart disease without heart failure; I43 - Cardiomyopathy in diseases classified elsewhere (15) Ischemic cardiomyopathy Code(s): I25.5 - ISCHEMIC CARDIOMYOPATHY (16) Liver lesion Code(s): K76.9 - LIVER DISEASE, UNSPECIFIED (17) Pre-operative cardiovascular examination Code(s): Z01.810 - ENCOUNTER FOR PREPROCEDURAL CARDIOVASCULAR EXAMINATION (18) S/P coronary artery stent placement Code(s): Z95.5 - PRESENCE OF CORONARY ANGIOPLASTY IMPLANT AND GRAFT Assessment/Plan Assessment/Plan 01/26/2019 Echo: Normal LV and RV size and fxn LVEF 50-55%, trace-mild MR, mild TR 01/03/2017 Cardiac MRI LVEF 40% with anteroseptal and anterior infarcts 11/29/2016 LHC: LVEF 35%, patent LADstent, occluded LCx-OM1 not amenable to intervention, and patent prox-mid RCA stent 03/01/2016 Echo: Prob preserved LV fxn with anterior HK, mild MR, TR 03/01/2016 P-Myoview: Large lateral, inferolateral infarct with small zone periinfarct ischemia, LVEF 31% 1. Sepsis source post cystoscopy h/o bladder cancer 2. CAD s/p TX, multivessel PCI 3. Ischemic cardiomyopathy with improved LVEF 4. HTN/HCVD 5. Type 2 DM 6. Hyperlipidemia 7. PAD 8. s/p lap cholecystec 9. BPH P:1. Abx course per C&S, IVF, pressors as needed to maintain MAP>65 mmHg 2. Renal US and CT scan abd/pelvis to r/o upper tract obstruction, phelps cath 3. Continue ASA 81, Effient 5 qd, Lipitor 40 qd, Ranexa 500 bid, Vascepa 2 bid. Resume carvedilol 25 bid and replace Entresto with Valsartan 80 qd as hemodynamics tolerate since LVEF has recovered. 4. DVT and GI prophylaxis coverage for dr. Haley cc time spent 36 min
--- NOTE | 2019-01-28 09:11 | PN ---
Progress Note (short form) - Note Progress Note: Seen and examined in the ICU Patient denies: f/c/n/v/valentine/cp/palp. c/o buring w/ urination BP stable off pressors CVC d/c'sd this AM Current Medications Acetaminophen (Tylenol -) 650 mg PO Q6H PRN PRN Reason: Fever Or Pain Last Admin: 01/27/19 04:06 Dose: 650 mg Aspirin (Asa -) 81 mg PO DAILY JEAN MARIE Last Admin: 01/27/19 09:19 Dose: 81 mg Chlorhexidine Gluconate (Hibiclens For Decolonization -) 1 applic TP HS JEAN MARIE Last Admin: 01/27/19 21:53 Dose: 1 applic Heparin Sodium (Porcine) (Heparin -) 5,000 unit SQ TID JEAN MARIE Last Admin: 01/28/19 06:53 Dose: 5,000 unit Meropenem 1 gm/ Dextrose 100 mls @ 200 mls/hr IVPB Q8H-IV JEAN MARIE Last Admin: 01/28/19 02:32 Dose: 200 mls/hr Vancomycin HCl (Vancomycin (Pre-Docked)) 1,000 mg in 250 mls @ 166.667 mls/hr IVPB Q12H JEAN MARIE; Protocol Last Admin: 01/28/19 02:33 Dose: 166.667 mls/hr Norepinephrine Bitartrate 4, (000 mcg/ Dextrose) 500 mls @ 37.5 mls/hr IV TITR JEAN MARIE; Protocol Last Admin: 01/28/19 02:31 Dose: Not Given Insulin Aspart (Novolog Vial Sliding Scale -) 1 vial SQ ACHS [facility]; Protocol Last Admin: 01/28/19 06:53 Dose: Not Given Lidocaine HCl (Xylocaine 2% Uro-Jet) 10 ml UR BID PRN PRN Reason: PAIN Last Admin: 01/28/19 09:02 Dose: 10 ml Mupirocin (Bactroban Ointment (For Decolonization) -) 1 applic NS BID [facility] Stop: 01/31/19 21:59 Last Admin: 01/27/19 21:50 Dose: 1 applic Polysaccharide Iron Complex (Niferex-150 -) 150 mg PO DAILY [facility] Last Admin: 01/27/19 15:53 Dose: 150 mg Prasugrel (Effient -) 5 mg PO DAILY [facility] Last Admin: 01/27/19 11:22 Dose: 5 mg Ranolazine (Ranexa -) 500 mg PO BID [facility] Last Admin: 01/27/19 21:50 Dose: 500 mg Tamsulosin HCl (Flomax -) 0.4 mg PO DAILY@0830 [facility] Last Admin: 01/28/19 08:13 Dose: 0.4 mg Vital Signs Period Temp Pulse Resp BP Sys/Gaspar Pulse Ox Last 24 Hr 98.7 F-99.3 F 84-108 18-33 100-130/56-80 95 Intake & Output 01/25/19 01/26/19 01/27/19 01/28/19 23:59 23:59 23:59 23:59 Intake Total 250 1715 Output Total 1775 3550 600 Balance -1525 -1835 -600 Weight 205 kg 95.906 kg 95.935 kg Exam: General: OOB to chair, no distress AOx3 HEENT: PERRL, no JVD Pulm: CTA CV: RRR Abd: SNTND +BS Ext: WWP no edema Neuro: CN grossly intact CBC, BMP 01/28/19 05:15 01/28/19 05:15 Microbiology 01/26/19 11:00 Blood - Peripheral Venous Blood Culture - Preliminary NO GROWTH OBTAINED AFTER 24 HOURS, INCUBATION TO CONTINUE FOR 4 DAYS. 01/26/19 11:09 Blood - Peripheral Venous Blood Culture - Preliminary NO GROWTH OBTAINED AFTER 24 HOURS, INCUBATION TO CONTINUE FOR 4 DAYS. 01/26/19 12:53 Urine - Urine Clean Catch Urine Culture - Preliminary Non Lactose Fermenting Gnb IMP: UTI Resolved Septic Shock Recent cystoscopy 2 days ago CAD S/P PCI (on asa, plavix) stent x 4 History of systolic CHF (last EF apparently 30% per son who is a doctor in [place]) NIDDM HTN HLD Bladder CA (chemo x1) BPH. ID following Meropenem for UTI, can likely d/c vanco regular diet d/c CVC this AM O2 as needed trial pyridium for burning w/ urination, most likely 2/2 recent phelps ECHO: EF 50-55% w/ LVH Strict I & O, cont BPH meds stable for floor transfer Boerem ACNP Pulm/CCM CCT: 40m
--- NOTE | 2019-01-28 09:20 | PN ---
Progress Note, Physician Chief Complaint: Urosepsis History of Present Illness: ct scan with soft tissue stranding prostate and bilateral kidneys suggestive of prostatis and bilateral pyelonephritis/nephritis On IV abx Seen by ID C/O penile pain/dysuria Mckeon discontinued CVC discontinued Off levophed - Current Medication List Current Medications: Active Medications Acetaminophen (Tylenol -) 650 mg PO Q6H PRN PRN Reason: Fever Or Pain Last Admin: 01/27/19 04:06 Dose: 650 mg Aspirin (Asa -) 81 mg PO DAILY [facility] Last Admin: 01/27/19 09:19 Dose: 81 mg Chlorhexidine Gluconate (Hibiclens For Decolonization -) 1 applic TP HS [facility] Last Admin: 01/27/19 21:53 Dose: 1 applic Heparin Sodium (Porcine) (Heparin -) 5,000 unit SQ TID [facility] Last Admin: 01/28/19 06:53 Dose: 5,000 unit Meropenem 1 gm/ Dextrose 100 mls @ 200 mls/hr IVPB Q8H-IV [facility] Last Admin: 01/28/19 02:32 Dose: 200 mls/hr Vancomycin HCl (Vancomycin (Pre-Docked)) 1,000 mg in 250 mls @ 166.667 mls/hr IVPB Q12H [facility]; Protocol Last Admin: 01/28/19 02:33 Dose: 166.667 mls/hr Norepinephrine Bitartrate 4, (000 mcg/ Dextrose) 500 mls @ 37.5 mls/hr IV TITR [facility]; Protocol Last Admin: 01/28/19 02:31 Dose: Not Given Insulin Aspart (Novolog Vial Sliding Scale -) 1 vial SQ ACHS [facility]; Protocol Last Admin: 01/28/19 06:53 Dose: Not Given Lidocaine HCl (Xylocaine 2% Uro-Jet) 10 ml UR BID PRN PRN Reason: PAIN Last Admin: 01/28/19 09:02 Dose: 10 ml Mupirocin (Bactroban Ointment (For Decolonization) -) 1 applic NS BID [facility] Stop: 01/31/19 21:59 Last Admin: 01/27/19 21:50 Dose: 1 applic Polysaccharide Iron Complex (Niferex-150 -) 150 mg PO DAILY [facility] Last Admin: 01/27/19 15:53 Dose: 150 mg Prasugrel (Effient -) 5 mg PO DAILY [facility] Last Admin: 01/27/19 11:22 Dose: 5 mg Ranolazine (Ranexa -) 500 mg PO BID [facility] Last Admin: 01/27/19 21:50 Dose: 500 mg Tamsulosin HCl (Flomax -) 0.4 mg PO DAILY@0830 [facility] Last Admin: 01/28/19 08:13 Dose: 0.4 mg - Objective Vital Signs: Vital Signs Temperature 99 F 01/28/19 06:00 Pulse Rate 84 01/28/19 06:00 Respiratory Rate 23 H 01/28/19 06:00 Blood Pressure 105/72 01/28/19 06:00 O2 Sat by Pulse Oximetry (%) 95 01/27/19 21:00 Constitutional: Yes: Well Nourished, No Distress, Calm Cardiovascular: Yes: Regular Rate and Rhythm Respiratory: Yes: Regular Gastrointestinal: Yes: WNL Genitourinary: Yes: WNL Musculoskeletal: Yes: WNL Extremities: Yes: WNL Edema: No Peripheral Pulses WNL: Yes Neurological: Yes: Alert, Oriented Psychiatric: Yes: Alert, Oriented Labs: CBC, BMP 01/28/19 05:15 01/28/19 05:15 INR, PTT INR 1.59 (0.83-1.09) H 01/26/19 11:09 Problem List - Problems (1) Anemia Assessment/Plan: -Stool OB negative -Iron% low -Started on Iron polysaccharide 1 tab po daily -Monitor H/H -No overt bleeding at this time Problems reviewed: Yes Code(s): D64.9 - ANEMIA, UNSPECIFIED (2) Dysuria Assessment/Plan: -Pyridium 100 mg po TID PRN - pending Problems reviewed: Yes Code(s): R30.0 - DYSURIA Assessment/Plan (1) Sepsis Assessment/Plan: -Tapered off levophed -IV abx -CT abd/pelvis scan with soft tissue stranding prostate and bilateral kidneys suggestive of prostatis and bilateral pyelonephritis/nephritis -Transfer to Telemetry - pending Code(s): A41.9 - SEPSIS, UNSPECIFIED ORGANISM Qualifiers: Sepsis type: sepsis due to unspecified organism Sepsis acute organ dysfunction status: unspecified Qualified Code(s): A41.9 - Sepsis, unspecified organism (2) CAD (coronary artery disease) Assessment/Plan: -on aspirin and prasugrel -cardiology consult -01/26/2019 Echo: Normal LV and RV size and fxn LVEF 50-55%, trace-mild MR, mild TR Code(s): I25.10 - ATHSCL HEART DISEASE OF [place] CORONARY ARTERY W/O ANG PCTRS Qualifiers: Coronary Disease-Associated Artery/Lesion type: [place] artery [place] vs. 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
--- NOTE | 2019-01-28 09:59 | PN ---
Progress Note (short form) - Note Progress Note: awake and alert phelps out has some dysuria and loose stools ct scan with soft tissue stranding prostate and bilateral kidneys suggestive of prostatis and bilateral pyelonephritis/nephritis eating well now no vomiting +BM off pressors oob in chair Vital Signs Period Temp Pulse Resp BP Sys/Gaspar Pulse Ox Last 24 Hr 98.7 F-99.3 F 84-108 18-33 100-130/56-80 95 cor-rrr llungs clear abd soft,nt ext no edema CBC, BMP 01/28/19 05:15 01/28/19 05:15 Microbiology 01/26/19 11:00 Blood - Peripheral Venous Blood Culture - Preliminary NO GROWTH OBTAINED AFTER 24 HOURS, INCUBATION TO CONTINUE FOR 4 DAYS. 01/26/19 11:09 Blood - Peripheral Venous Blood Culture - Preliminary NO GROWTH OBTAINED AFTER 24 HOURS, INCUBATION TO CONTINUE FOR 4 DAYS. 01/26/19 12:53 Urine - Urine Clean Catch Urine Culture - Preliminary Non Lactose Fermenting Gnb a/p sepsis ct scan suggestive of prostatiits/pyelo-uti with GNR continue meropenem, d/c vancomycin f/u cultures add probiotics history of bladder cancer- currently being monitored history of BPH history of CAD/CHF d/w daughter and at bedside
[2019-01-28] MEDS ORDERED: LACTOBACILLUS ACIDOPHILUS 1 TABLET PO SCH (10:00)
--- NOTE | 2019-01-28 10:14 | PN ---
Progress Note (short form) - Note Progress Note: feels better afebrile dysuria and loose stools prostatitis and pyelo s/p cysto increase flomax to 0.8 abx as per ID
[2019-01-28] MEDS ORDERED: TAMSULOSIN HCL 0.4 MG CAP PO ONE (10:16)
[2019-01-28] MEDS: ASPIRIN 81 MG CHEWABLE TABLETS PO SCH (10:18)
[2019-01-28] MEDS: RANOLAZINE E.R. 500 MG TABLET (FP) PO SCH ×2 (10:18→21:38)
[2019-01-28] MEDS: IRON POLYSACCHARIDES 150 MG CAPSULE PO SCH (10:18)
[2019-01-28] MEDS: MUPIROCIN 2% TOPICAL OINTMENT FOR DECOLONIZATION NS SCH (10:27)
[2019-01-28] MEDS: PRASUGREL HCL 5 MG TAB PO SCH (10:39)
[2019-01-28] MEDS: ERTAPENEM SODIUM 1 GM in SODIUM CHLORIDE 50 ML IVPB SCH (11:29)
[2019-01-28 13:31] VITALS: BMI 30.2
[2019-01-28] MEDS ORDERED: LIDOCAINE HCL 2% JELLY 10 ML CARTRIDGE UR PRN (14:59)
[2019-01-28] MEDS ORDERED: IBUPROFEN 400 MG TABLET (FP) PO ONE (21:48)
[2019-01-28] MEDS ORDERED: MUPIROCIN 2% TOPICAL OINTMENT FOR DECOLONIZATION NS SCH (22:00)
[2019-01-28] MEDS ORDERED: CHLORHEXIDINE GLUCONATE 4% CLEANSER FOR DECOLONIZATION TP SCH ×2 (22:00)
[2019-01-29] MEDS: HEPARIN NA (PORCINE) 5,000 UNITS/ML 1ML VIAL SQ SCH ×3 (05:53→22:29)
[2019-01-29] MEDS: INSULIN SLIDING SCALE (NOVOLOG) 1 VIAL SQ SCH ×4 (06:02→22:30)
[2019-01-29] MEDS: TAMSULOSIN HCL 0.4 MG CAP PO SCH (08:21)
[2019-01-29] MEDS: ACETAMINOPHEN 325 MG TABLET (FP) PO PRN (08:22)
[2019-01-29] MEDS ORDERED: TAMSULOSIN HCL 0.4 MG CAP PO SCH (08:30)
[2019-01-29] MEDS ORDERED: PT OWN MED DRAWER 7, Y5N ONE (09:08)
[2019-01-29] MEDS: RANOLAZINE E.R. 500 MG TABLET (FP) PO SCH ×2 (09:13→22:29)
[2019-01-29] MEDS: LACTOBACILLUS ACIDOPHILUS 1 TABLET PO SCH (09:13)
[2019-01-29] MEDS: IRON POLYSACCHARIDES 150 MG CAPSULE PO SCH (09:13)
[2019-01-29] MEDS: PRASUGREL HCL 5 MG TAB PO SCH (09:13)
[2019-01-29] MEDS: ASPIRIN 81 MG CHEWABLE TABLETS PO SCH (09:13)
[2019-01-29 10:03] LABS: BASO % 0.4 % (0-2.0); EOS % 1.5 % (0-4.5); HEMATOCRIT 34.9 % (35.4-49); HEMOGLOBIN 11.5 GM/dL (11.7-16.9); LYMPH % 13.3 % (8-40); MCH 23.9 pg (25.7-33.7); MCHC 32.9 g/dl (32.0-35.9); MEAN CELL VOLUME 72.8 fl (80-96); MEAN PLT VOLUME 8.3 fl (7.5-11.1); MONO % 8.1 % (3.8-10.2); NEUT % 76.7 % (42.8-82.8); PLATELET COUNT 170 K/MM3 (134-434); RBC 4.79 M/mm3 (4.00-5.60); RDW 16.8 % (11.9-15.9); WHITE BLOOD COUNT 5.6 K/mm3 (4.0-10.0)
--- NOTE | 2019-01-29 10:16 | PN ---
Progress Note, Physician History of Present Illness: Afebrile, but dysuria persists. - Current Medication List Current Medications: Active Medications Acetaminophen (Tylenol -) 650 mg PO Q6H PRN PRN Reason: Fever Or Pain Last Admin: 01/29/19 08:22 Dose: 650 mg Aspirin (Asa -) 81 mg PO DAILY [facility] Last Admin: 01/29/19 09:13 Dose: 81 mg Atorvastatin Calcium (Lipitor -) 40 mg PO HS [facility] Carvedilol (Coreg -) 25 mg PO BID [facility] Chlorhexidine Gluconate (Hibiclens For Decolonization -) 1 applic TP HS [facility] Heparin Sodium (Porcine) (Heparin -) 5,000 unit SQ TID [facility] Last Admin: 01/29/19 05:53 Dose: 5,000 unit Ertapenem 1 gm/ Sodium (Chloride) 50 mls @ 100 mls/hr IVPB DAILY [facility] Last Admin: 01/28/19 11:29 Dose: 100 mls/hr Insulin Aspart (Novolog Vial Sliding Scale -) 1 vial SQ ACHS [facility]; Protocol Last Admin: 01/29/19 06:02 Dose: Not Given Lactobacillus Acidophilus (Bacid -) 1 tab PO DAILY [facility] Last Admin: 01/29/19 09:13 Dose: 1 tab Lidocaine HCl (Xylocaine 2% Uro-Jet) 10 ml UR BID PRN PRN Reason: PAIN Mupirocin (Bactroban Ointment (For Decolonization) -) 1 applic NS BID [facility] Stop: 01/31/19 21:59 Polysaccharide Iron Complex (Niferex-150 -) 150 mg PO DAILY [facility] Last Admin: 01/29/19 09:13 Dose: 150 mg Prasugrel (Effient -) 5 mg PO DAILY [facility] Last Admin: 01/29/19 09:13 Dose: 5 mg Ranolazine (Ranexa -) 500 mg PO BID [facility] Last Admin: 01/29/19 09:13 Dose: 500 mg Tamsulosin HCl (Flomax -) 0.8 mg PO DAILY@0830 [facility] Last Admin: 01/29/19 08:21 Dose: 0.8 mg - Objective Vital Signs: Vital Signs Temperature 97.6 F 01/29/19 10:00 Pulse Rate 86 01/29/19 10:00 Respiratory Rate 18 01/29/19 10:00 Blood Pressure 116/75 01/29/19 10:00 O2 Sat by Pulse Oximetry (%) 96 01/28/19 21:00 Constitutional: Yes: No Distress, Calm Neck: Yes: Supple Cardiovascular: Yes: Regular Rate and Rhythm Respiratory: Yes: Regular, CTA Bilaterally Gastrointestinal: Yes: Normal Bowel Sounds, Soft Edema: No Labs: CBC, BMP 01/29/19 09:00 INR, PTT INR 1.59 (0.83-1.09) H 01/26/19 11:09 Problem List - Problems (1) Sepsis Code(s): A41.9 - SEPSIS, UNSPECIFIED ORGANISM Qualifiers: Sepsis type: sepsis due to unspecified organism Sepsis acute organ dysfunction status: unspecified Qualified Code(s): A41.9 - Sepsis, unspecified organism (2) CAD (coronary artery disease) Code(s): I25.10 - ATHSCL HEART DISEASE OF [place] CORONARY ARTERY W/O ANG PCTRS Qualifiers: Coronary Disease-Associated Artery/Lesion type: [place] artery [place] vs. 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 (4) Hyperlipidemia associated with type 2 diabetes mellitus Code(s): E11.69 - TYPE 2 DIABETES MELLITUS WITH OTHER SPECIFIED COMPLICATION; E78.5 - HYPERLIPIDEMIA, UNSPECIFIED (5) Hypertensive cardiomyopathy Code(s): I11.9 - HYPERTENSIVE HEART DISEASE WITHOUT HEART FAILURE; I43 - CARDIOMYOPATHY IN DISEASES CLASSIFIED ELSEWHERE Qualifiers: Heart failure presence: without heart failure Qualified Code(s): I11.9 - Hypertensive heart disease without heart failure; I43 - Cardiomyopathy in diseases classified elsewhere (6) Ischemic cardiomyopathy Code(s): I25.5 - ISCHEMIC CARDIOMYOPATHY (7) S/P coronary artery stent placement Code(s): Z95.5 - PRESENCE OF CORONARY ANGIOPLASTY IMPLANT AND GRAFT Assessment/Plan 01/27/[address] scan abd/pelvis: No hydro, + bilateral perinephric stranding 01/26/2019 Echo: Normal LV and RV size and fxn LVEF 50-55%, trace-mild MR, mild TR 01/03/2017 Cardiac MRI LVEF 40% with anteroseptal and anterior infarcts 11/29/2016 [facility]: LVEF 35%, patent LADstent, occluded LCx-OM1 not amenable to intervention, and patent prox-mid RCA stent 03/01/2016 Echo: Prob preserved LV fxn with anterior HK, mild MR, TR 03/01/2016 P-Myoview: Large lateral, inferolateral infarct with small zone periinfarct ischemia, LVEF 31% 1. Sepsis source post cystoscopy h/o bladder cancer (E. coli prostatitis and pyelonephritis) 2. CAD s/p [place], multivessel PCI 3. Ischemic cardiomyopathy with improved LVEF 4. HTN/HCVD 5. Type 2 DM 6. Hyperlipidemia 7. PAD 8. s/p lap cholecystectomy 9. BPH P:1. Abx course per C&S 2. Continue ASA 81, Effient 5 qd, Lipitor 40 qd, Ranexa 500 bid, Vascepa 2 bid. Continue carvedilol 25 bid and replace Entresto with Valsartan 80 qd as hemodynamics tolerate since LVEF has recovered. 3. DVT and GI prophylaxis
[2019-01-29 10:25] LABS: ALBUMIN 2.6 g/dl (3.4-5.0); BILIRUBIN,TOTAL 0.4 mg/dL (0.2-1); BLOOD UREA NITROGEN 16.2 mg/dL (7-18); CALCIUM 8.4 mg/dL (8.5-10.1); CREATININE 0.8 mg/dL (0.55-1.3); POTASSIUM 4.1 mmol/L (3.5-5.1); TOT PROT 5.9 g/dl (6.4-8.2)
[2019-01-29] MEDS: ERTAPENEM SODIUM 1 GM in SODIUM CHLORIDE 50 ML IVPB SCH (10:58)
[2019-01-29] MEDS: CARVEDILOL 25 MG TABLET (FP) PO SCH ×2 (12:06→22:29)
--- NOTE | 2019-01-29 12:10 | PN ---
Progress Note, Physician Chief Complaint: Urosepsis History of Present Illness: Previous notes and events reviewed awake and alert NAD continue have dysuria, denies hematuria bladder scan show urine residual >600cc - Current Medication List Current Medications: Active Medications Acetaminophen (Tylenol -) 650 mg PO Q6H PRN PRN Reason: Fever Or Pain Last Admin: 01/29/19 08:22 Dose: 650 mg Aspirin (Asa -) 81 mg PO DAILY [facility] Last Admin: 01/29/19 09:13 Dose: 81 mg Atorvastatin Calcium (Lipitor -) 40 mg PO HS [facility] Carvedilol (Coreg -) 25 mg PO BID [facility] Chlorhexidine Gluconate (Hibiclens For Decolonization -) 1 applic TP HS [facility] Heparin Sodium (Porcine) (Heparin -) 5,000 unit SQ TID [facility] Last Admin: 01/29/19 05:53 Dose: 5,000 unit Ertapenem 1 gm/ Sodium (Chloride) 50 mls @ 100 mls/hr IVPB DAILY [facility] Last Admin: 01/29/19 10:58 Dose: 100 mls/hr Insulin Aspart (Novolog Vial Sliding Scale -) 1 vial SQ ACHS [facility]; Protocol Last Admin: 01/29/19 11:24 Dose: Not Given Lactobacillus Acidophilus (Bacid -) 1 tab PO DAILY [facility] Last Admin: 01/29/19 09:13 Dose: 1 tab Lidocaine HCl (Xylocaine 2% Uro-Jet) 10 ml UR BID PRN PRN Reason: PAIN Mupirocin (Bactroban Ointment (For Decolonization) -) 1 applic NS BID [facility] Stop: 01/31/19 21:59 Polysaccharide Iron Complex (Niferex-150 -) 150 mg PO DAILY [facility] Last Admin: 01/29/19 09:13 Dose: 150 mg Prasugrel (Effient -) 5 mg PO DAILY [facility] Last Admin: 01/29/19 09:13 Dose: 5 mg Ranolazine (Ranexa -) 500 mg PO BID [facility] Last Admin: 01/29/19 09:13 Dose: 500 mg Tamsulosin HCl (Flomax -) 0.8 mg PO DAILY@0830 [facility] Last Admin: 01/29/19 08:21 Dose: 0.8 mg Valsartan (Diovan -) 80 mg PO DAILY [facility] - Objective Vital Signs: Vital Signs Temperature 97.6 F 01/29/19 10:00 Pulse Rate 86 01/29/19 10:00 Respiratory Rate 18 01/29/19 10:00 Blood Pressure 116/75 01/29/19 10:00 O2 Sat by Pulse Oximetry (%) 96 01/28/19 21:00 Constitutional: Yes: No Distress, Calm Eyes: Yes: Conjunctiva Clear HENT: Yes: Atraumatic Cardiovascular: Yes: Regular Rate and Rhythm Respiratory: Yes: Regular, CTA Bilaterally Gastrointestinal: Yes: Normal Bowel Sounds, Soft Musculoskeletal: Yes: WNL Extremities: Yes: WNL Edema: No Neurological: Yes: Alert, Oriented Psychiatric: Yes: Alert, Oriented Labs: CBC, BMP 01/29/19 09:00 01/29/19 06:00 INR, PTT INR 1.59 (0.83-1.09) H 01/26/19 11:09 Microbiology 01/26/19 11:00 Blood - Peripheral Venous Blood Culture - Preliminary NO GROWTH OBTAINED AFTER 72 HOURS, INCUBATION TO CONTINUE FOR 2 DAYS. 01/26/19 11:09 Blood - Peripheral Venous Blood Culture - Preliminary NO GROWTH OBTAINED AFTER 72 HOURS, INCUBATION TO CONTINUE FOR 2 DAYS. 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 Problem List - Problems (1) Anemia Assessment/Plan: -Hg 11.5 -monitor Hg daily -transfuse for Hg <7.0 to avoid overload -Iron Polysaccharide daily Code(s): D64.9 - ANEMIA, UNSPECIFIED (2) Dysuria Assessment/Plan: -Urology on board -Pyridiun -UC positive Code(s): R30.0 - DYSURIA (3) Sepsis Assessment/Plan: -ID on board -No Leukocytosis -afebrile -UC positive -BC neg -LA 3.4~1.8 -Ertapenem -Abd/Pelvic CT scan shows interval increased bilateral perinephric soft tissue stranding noted including increased thickening of pararenal fascia bilaterally, acute bilateral pyelonephritis or noninfectious nephritis Code(s): A41.9 - SEPSIS, UNSPECIFIED ORGANISM Qualifiers: Sepsis type: sepsis due to unspecified organism Sepsis acute organ dysfunction status: unspecified Qualified Code(s): A41.9 - Sepsis, unspecified organism (4) CAD (coronary artery disease) Assessment/Plan: -Cardiology on board -Aspirin Code(s): I25.10 - ATHSCL HEART DISEASE OF [place] CORONARY ARTERY W/O ANG PCTRS Qualifiers: Coronary Disease-Associated Artery/Lesion type: [place] artery [place] vs. transplanted heart: [place] heart Associated angina: without angina Qualified Code(s): I25.10 - Atherosclerotic heart disease of [place] coronary artery without angina pectoris (5) Diabetes Assessment/Plan: -BGM ACHS -ISS -Diabetic diet Code(s): E11.9 - TYPE 2 DIABETES MELLITUS WITHOUT COMPLICATIONS Qualifiers: Diabetes mellitus type: type 2 Diabetes mellitus detention insulin use: with detention use (6) Heart failure Assessment/Plan: -1L fluid restriction -daily weights -Coreg, Diovan, and Ranexa Code(s): I50.9 - HEART FAILURE, UNSPECIFIED Qualifiers: Heart failure type: systolic (7) Bladder cancer Assessment/Plan: -Urology on board -Tamsulosin -bladder scan q6h -straight cath q6h for residual >600cc Code(s): C67.9 - MALIGNANT NEOPLASM OF BLADDER, UNSPECIFIED Assessment/Plan see problem list dvt ppx
--- NOTE | 2019-01-29 12:52 | PN ---
Progress Note (short form) - Note Progress Note: urinary retention requiring staraight cath otherwise well, loose stools have resolved, no BM today ct scan with soft tissue stranding prostate and bilateral kidneys suggestive of prostatis and bilateral pyelonephritis/nephritis eating well now no vomiting transferred to floor Vital Signs Period Temp Pulse Resp BP Sys/Gaspar Pulse Ox Last 24 Hr 97.6 F-98.1 F 75-93 18-18 115-134/60-77 96-96 cor-rrr lungs clear abd soft,nt ext no edema CBC, BMP 01/29/19 09:00 01/29/19 06:00 Microbiology 01/26/19 11:00 Blood - Peripheral Venous Blood Culture - Preliminary NO GROWTH OBTAINED AFTER 72 HOURS, INCUBATION TO CONTINUE FOR 2 DAYS. 01/26/19 11:09 Blood - Peripheral Venous Blood Culture - Preliminary NO GROWTH OBTAINED AFTER 72 HOURS, INCUBATION TO CONTINUE FOR 2 DAYS. 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
[2019-01-29 13:07] LABS: ANISOCYTOSIS 1+; MACROCYTOSIS 0; OVALOCYTE 1+; PLATELET ESTIMATE DECREASED
[2019-01-29] MEDS: ATORVASTATIN CA 40 MG TABLET (FP) PO SCH (22:29)
[2019-01-30] MEDS: HEPARIN NA (PORCINE) 5,000 UNITS/ML 1ML VIAL SQ SCH ×3 (06:02→21:47)
[2019-01-30] MEDS: INSULIN SLIDING SCALE (NOVOLOG) 1 VIAL SQ SCH ×4 (06:02→22:13)
[2019-01-30 08:04] LABS: ALBUMIN 2.8 g/dl (3.4-5.0); BILIRUBIN,TOTAL 0.6 mg/dL (0.2-1); BLOOD UREA NITROGEN 14.3 mg/dL (7-18); CALCIUM 8.6 mg/dL (8.5-10.1); CREATININE 0.8 mg/dL (0.55-1.3); POTASSIUM 3.9 mmol/L (3.5-5.1); TOT PROT 6.2 g/dl (6.4-8.2)
[2019-01-30 08:06] LABS: HEMATOCRIT 34.2 % (35.4-49); HEMOGLOBIN 11.5 GM/dL (11.7-16.9); MCH 24.1 pg (25.7-33.7); MCHC 33.7 g/dl (32.0-35.9); MEAN CELL VOLUME 71.5 fl (80-96); MEAN PLT VOLUME 8.2 fl (7.5-11.1); PLATELET COUNT 202 K/MM3 (134-434); RBC 4.78 M/mm3 (4.00-5.60); RDW 16.9 % (11.9-15.9); WHITE BLOOD COUNT 5.7 K/mm3 (4.0-10.0)
[2019-01-30] MEDS: TAMSULOSIN HCL 0.4 MG CAP PO SCH (08:33)
[2019-01-30] MEDS: ACETAMINOPHEN 325 MG TABLET (FP) PO PRN ×3 (08:33→22:13)
[2019-01-30] MEDS ORDERED: BISACODYL 5 MG TABLET.DR (FP) PO ONE (08:33)
--- NOTE | 2019-01-30 08:34 | PN ---
Progress Note, Physician - Current Medication List Current Medications: Active Medications Acetaminophen (Tylenol -) 650 mg PO Q6H PRN PRN Reason: Fever Or Pain Last Admin: 01/29/19 08:22 Dose: 650 mg Aspirin (Asa -) 81 mg PO DAILY [facility] Last Admin: 01/29/19 09:13 Dose: 81 mg Atorvastatin Calcium (Lipitor -) 40 mg PO HS [facility] Last Admin: 01/29/19 22:29 Dose: 40 mg Carvedilol (Coreg -) 25 mg PO BID [facility] Last Admin: 01/29/19 22:29 Dose: 25 mg Heparin Sodium (Porcine) (Heparin -) 5,000 unit SQ TID [facility] Last Admin: 01/30/19 06:02 Dose: 5,000 unit Ertapenem 1 gm/ Sodium (Chloride) 50 mls @ 100 mls/hr IVPB DAILY [facility] Last Admin: 01/29/19 10:58 Dose: 100 mls/hr Insulin Aspart (Novolog Vial Sliding Scale -) 1 vial SQ ACHS [facility]; Protocol Last Admin: 01/30/19 06:02 Dose: Not Given Lactobacillus Acidophilus (Bacid -) 1 tab PO DAILY [facility] Last Admin: 01/29/19 09:13 Dose: 1 tab Lidocaine HCl (Xylocaine 2% Uro-Jet) 10 ml UR BID PRN PRN Reason: PAIN Polysaccharide Iron Complex (Niferex-150 -) 150 mg PO DAILY [facility] Last Admin: 01/29/19 09:13 Dose: 150 mg Prasugrel (Effient -) 5 mg PO DAILY [facility] Last Admin: 01/29/19 09:13 Dose: 5 mg Ranolazine (Ranexa -) 500 mg PO BID [facility] Last Admin: 01/29/19 22:29 Dose: 500 mg Tamsulosin HCl (Flomax -) 0.8 mg PO DAILY@0830 [facility] Last Admin: 01/29/19 08:21 Dose: 0.8 mg Valsartan (Diovan -) 80 mg PO DAILY [facility] - Objective Vital Signs: Vital Signs Temperature 97.7 F 01/30/19 06:00 Pulse Rate 76 01/30/19 06:00 Respiratory Rate 18 01/30/19 06:00 Blood Pressure 143/81 01/30/19 06:00 O2 Sat by Pulse Oximetry (%) 98 01/29/19 21:00 Cardiovascular: Yes: Regular Rate and Rhythm Respiratory: Yes: Regular, CTA Bilaterally Gastrointestinal: Yes: Normal Bowel Sounds, Soft. No: Tenderness Labs: CBC, BMP 01/30/19 07:00 INR, PTT INR 1.59 (0.83-1.09) H 01/26/19 11:09 Assessment/Plan - Problems (1) Anemia Assessment/Plan: -Hg 11.5 -monitor Code(s): D64.9 - ANEMIA, UNSPECIFIED (2) [id number] Assessment/Plan: -Urology on board -Pyridiun -UC positive -flomax and avodart Code(s): R30.0 - DYSURIA (3) Sepsis Assessment/Plan: -ID on board -No Leukocytosis -afebrile -UC positive Microbiology 01/26/19 11:00 Blood - Peripheral Venous Blood Culture - Preliminary NO GROWTH OBTAINED AFTER 72 HOURS, INCUBATION TO CONTINUE FOR 2 DAYS. 01/26/19 11:09 Blood - Peripheral Venous Blood Culture - Preliminary NO GROWTH OBTAINED AFTER 72 HOURS, INCUBATION TO CONTINUE FOR 2 DAYS. 01/26/19 12:53 Urine - Urine Clean Catch Urine Culture - Final Escherichia Coli Esbl Mica Inspector -BC neg -LA 3.4~1.8 -Ertapenem -Abd/Pelvic CT scan shows interval increased bilateral perinephric soft tissue stranding noted including increased thickening of pararenal fascia bilaterally, acute bilateral pyelonephritis or noninfectious nephritis Code(s): A41.9 - SEPSIS, UNSPECIFIED ORGANISM Qualifiers: Sepsis type: sepsis due to unspecified organism Sepsis acute organ dysfunction status: unspecified Qualified Code(s): A41.9 - Sepsis, unspecified organism (4) CAD (coronary artery disease) Assessment/Plan: -Cardiology on board -Aspirin Code(s): I25.10 - ATHSCL HEART DISEASE OF [place] CORONARY ARTERY W/O ANG PCTRS Qualifiers: Coronary Disease-Associated Artery/Lesion type: [place] artery [place] vs. transplanted heart: [place] heart Associated angina: without angina Qualified Code(s): I25.10 - Atherosclerotic heart disease of [place] coronary artery without angina pectoris (5) Diabetes Assessment/Plan: -BGM ACHS -ISS -Diabetic diet Code(s): E11.9 - TYPE 2 DIABETES MELLITUS WITHOUT COMPLICATIONS Qualifiers: Diabetes mellitus type: type 2 Diabetes mellitus alf insulin use: with alf use (6) Heart failure Assessment/Plan: -1L fluid restriction -daily weights -Coreg, Diovan, and Ranexa Code(s): I50.9 - HEART FAILURE, UNSPECIFIED Qualifiers: Heart failure type: systolic (7) Bladder cancer Assessment/Plan: -Urology on board -Tamsulosin -bladder scan q6h -straight cath q6h for residual >600cc Code(s): C67.9 - MALIGNANT NEOPLASM OF BLADDER, UNSPECIFIED
--- NOTE | 2019-01-30 09:51 | PN ---
Progres Note Chief Complaint: UTI and BPH w severe symptoms - Objective Vital Signs: Vital Signs Temperature 97.7 F 01/30/19 06:00 Pulse Rate 76 01/30/19 06:00 Respiratory Rate 18 01/30/19 06:00 Blood Pressure 143/81 01/30/19 06:00 O2 Sat by Pulse Oximetry (%) 98 01/29/19 21:00 Labs/Additional Data: CBC, BMP 01/30/19 07:00 01/30/19 07:00 INR, PTT INR 1.59 (0.83-1.09) H 01/26/19 11:09 Blood Type Blood Type A POSITIVE 01/26/19 11:09 Antibody Screen Negative 01/26/19 11:09 Problem List - Problems (1) BPH (benign prostatic hyperplasia) Assessment/Plan: Pt w persisting severe symptoms on double dose flomax cont tx for UTI Follow pvrs Discussed will likely require bph min invasive procedure Code(s): N40.0 - BENIGN PROSTATIC HYPERPLASIA WITHOUT LOWER URINRY TRACT SYMP
[2019-01-30] MEDS: LACTOBACILLUS ACIDOPHILUS 1 TABLET PO SCH (09:59)
[2019-01-30] MEDS: PRASUGREL HCL 5 MG TAB PO SCH (09:59)
[2019-01-30] MEDS: CARVEDILOL 25 MG TABLET (FP) PO SCH ×2 (09:59→21:47)
[2019-01-30] MEDS: ERTAPENEM SODIUM 1 GM in SODIUM CHLORIDE 50 ML IVPB SCH (09:59)
[2019-01-30] MEDS: POLYETHYLENE GLYCOL 3350 119 GM BTL PO SCH ×2 (10:00→21:29)
[2019-01-30] MEDS: ASPIRIN 81 MG CHEWABLE TABLETS PO SCH (10:00)
[2019-01-30] MEDS: VALSARTAN 80 MG TABLET (UD) PO SCH (10:00)
[2019-01-30] MEDS: RANOLAZINE E.R. 500 MG TABLET (FP) PO SCH ×2 (10:01→21:47)
[2019-01-30] MEDS: DUTASTERIDE 0.5 MG CAP (FP) PO SCH (10:10)
[2019-01-30] MEDS: IRON POLYSACCHARIDES 150 MG CAPSULE PO SCH (10:13)
[2019-01-30] MEDS ORDERED: INSULIN (NOVOLOG) ASPART 100 UNITS/ML 10ML VIAL ONE (11:23)
--- NOTE | 2019-01-30 11:49 | PN ---
Progress Note, Physician Chief Complaint: Events noted Not in distress History of Present Illness: Patient was seen and examined. Awake and alert. Chart was reviewed Denies chest pain, SOB or palpitations - Current Medication List Current Medications: Active Medications Acetaminophen (Tylenol -) 650 mg PO Q6H PRN PRN Reason: Fever Or Pain Last Admin: 01/30/19 08:33 Dose: 650 mg Aspirin (Asa -) 81 mg PO DAILY [facility] Last Admin: 01/30/19 10:00 Dose: 81 mg Atorvastatin Calcium (Lipitor -) 40 mg PO HS [facility] Last Admin: 01/29/19 22:29 Dose: 40 mg Carvedilol (Coreg -) 25 mg PO BID [facility] Last Admin: 01/30/19 09:59 Dose: 25 mg Dutasteride (Avodart -) 0.5 mg PO DAILY [facility] Last Admin: 01/30/19 10:10 Dose: 0.5 mg Heparin Sodium (Porcine) (Heparin -) 5,000 unit SQ TID [facility] Last Admin: 01/30/19 06:02 Dose: 5,000 unit Ertapenem 1 gm/ Sodium (Chloride) 50 mls @ 100 mls/hr IVPB DAILY [facility] Last Admin: 01/30/19 09:59 Dose: 100 mls/hr Insulin Aspart (Novolog Vial Sliding Scale -) 1 vial SQ ACHS [facility]; Protocol Last Admin: 01/30/19 11:24 Dose: 4 units Lactobacillus Acidophilus (Bacid -) 1 tab PO DAILY [facility] Last Admin: 01/30/19 09:59 Dose: 1 tab Lidocaine HCl (Xylocaine 2% Uro-Jet) 10 ml UR BID PRN PRN Reason: PAIN Polyethylene Glycol (Miralax (For Daily Use) -) 17 gm PO BID [facility] Last Admin: 01/30/19 10:00 Dose: 17 grams Prasugrel (Effient -) 5 mg PO DAILY [facility] Last Admin: 01/30/19 09:59 Dose: 5 mg Ranolazine (Ranexa -) 500 mg PO BID [facility] Last Admin: 01/30/19 10:01 Dose: 500 mg Tamsulosin HCl (Flomax -) 0.8 mg PO DAILY@0830 [facility] Last Admin: 01/30/19 08:33 Dose: 0.8 mg Valsartan (Diovan -) 80 mg PO DAILY [facility] Last Admin: 01/30/19 10:00 Dose: 80 mg - Objective Vital Signs: Vital Signs Temperature 97.7 F 01/30/19 06:00 Pulse Rate 76 01/30/19 06:00 Respiratory Rate 18 01/30/19 06:00 Blood Pressure 143/81 01/30/19 06:00 O2 Sat by Pulse Oximetry (%) 98 01/29/19 21:00 Eyes: Yes: PERRL HENT: Yes: Atraumatic Neck: Yes: Supple Cardiovascular: Yes: Regular Rate and Rhythm, S1, S2 Respiratory: Yes: CTA Bilaterally Gastrointestinal: Yes: Normal Bowel Sounds, Soft. No: Tenderness Edema: No Labs: CBC, BMP 01/30/19 07:00 01/30/19 07:00 Problem List - Problems (1) Hypercholesterolemia Code(s): E78.00 - PURE HYPERCHOLESTEROLEMIA, UNSPECIFIED (2) HTN (hypertension) Code(s): I10 - ESSENTIAL (PRIMARY) HYPERTENSION Qualifiers: Hypertension type: essential hypertension Qualified Code(s): I10 - Essential (primary) hypertension (3) Anemia Code(s): D64.9 - ANEMIA, UNSPECIFIED (4) BPH (benign prostatic hyperplasia) Code(s): N40.0 - BENIGN PROSTATIC HYPERPLASIA WITHOUT LOWER URINRY TRACT SYMP (5) Dysuria Code(s): R30.0 - DYSURIA (6) Sepsis Code(s): A41.9 - SEPSIS, UNSPECIFIED ORGANISM Qualifiers: Sepsis type: sepsis due to unspecified organism Sepsis acute organ dysfunction status: unspecified Qualified Code(s): A41.9 - Sepsis, unspecified organism (7) Bladder cancer Code(s): C67.9 - MALIGNANT NEOPLASM OF BLADDER, UNSPECIFIED (8) CAD (coronary artery disease) Code(s): I25.10 - ATHSCL HEART DISEASE OF [place] CORONARY ARTERY W/O ANG PCTRS Qualifiers: Coronary Disease-Associated Artery/Lesion type: [place] artery [place] vs. transplanted heart: [place] heart Associated angina: without angina Qualified Code(s): I25.10 - Atherosclerotic heart disease of [place] coronary artery without angina pectoris (9) Diabetes Code(s): E11.9 - TYPE 2 DIABETES MELLITUS WITHOUT COMPLICATIONS Qualifiers: Diabetes mellitus type: type 2 Diabetes mellitus snf insulin use: with tank terminal gauger use (10) Ischemic cardiomyopathy Code(s): I25.5 - ISCHEMIC CARDIOMYOPATHY (11) S/P coronary artery stent placement Code(s): Z95.5 - PRESENCE OF CORONARY ANGIOPLASTY IMPLANT AND GRAFT Assessment/Plan 1. Sepsis source post cystoscopy h/o bladder cancer (E. coli prostatitis and pyelonephritis) 2. CAD s/p [place], multivessel PCI 3. Ischemic cardiomyopathy with improved LVEF 4. HTN/HCVD 5. Type 2 DM 6. Hyperlipidemia 7. PAD 8. Post laparoscopic cholecystectomy 9. BPH PLAN: 1. Antibiotic coverage 2. Continue ASA 81 mg QD, Effient 5 mg QD, Lipitor 40 mg QD, Ranexa 500 mg BID, Vascepa 2 g BID. Continue Carvedilol 25 mg BID and Valsartan 80 mg QD as tolerated 3. DVT and GI prophylaxis Further plans are to follow Reji Blanco MD
--- NOTE | 2019-01-30 18:43 | PN ---
Progress Note (short form) - Note Progress Note: notes constipation voiding improved today did not need straight cath +constipation Vital Signs Period Temp Pulse Resp BP Sys/Gaspar Pulse Ox Last 24 Hr 97.7 F-98.4 F 76-96 18-18 115-143/63-81 98-98 cor-rrr lungs clear abd soft,nt ext no edema CBC, BMP 01/30/19 07:00 01/30/19 07:00 Microbiology 01/26/19 11:00 Blood - Peripheral Venous Blood Culture - Preliminary NO GROWTH OBTAINED AFTER 96 HOURS, INCUBATION TO CONTINUE FOR 1 DAYS. 01/26/19 11:09 Blood - Peripheral Venous Blood Culture - Preliminary NO GROWTH OBTAINED AFTER 96 HOURS, INCUBATION TO CONTINUE FOR 1 DAYS. 01/26/19 12:53 Urine - Urine Clean Catch Urine Culture - Final Escherichia Coli Esbl Apartment Maintenance a/p sepsis resolved ecoli esbl uti- prostatis/pyelonephritis? continue ertapenem via picc line for 3 weeks weekly labs , needs close f/u with urology can f/u in our office with Dr Hicks history of bladder cancer- currently being monitored history of BPH history of CAD/CHF Problem List - Problems (1) Sepsis Code(s): A41.9 - SEPSIS, UNSPECIFIED ORGANISM Qualifiers: Sepsis type: sepsis due to unspecified organism Sepsis acute organ dysfunction status: unspecified Qualified Code(s): A41.9 - Sepsis, unspecified organism (2) Bladder cancer Code(s): C67.9 - MALIGNANT NEOPLASM OF BLADDER, UNSPECIFIED (3) BPH (benign prostatic hyperplasia) Code(s): N40.0 - BENIGN PROSTATIC HYPERPLASIA WITHOUT LOWER URINRY TRACT SYMP (4) CAD (coronary artery disease) Code(s): I25.10 - ATHSCL HEART DISEASE OF [place] CORONARY ARTERY W/O ANG PCTRS Qualifiers: Coronary Disease-Associated Artery/Lesion type: [place] artery [place] vs. transplanted heart: [place] heart Associated angina: without angina Qualified Code(s): I25.10 - Atherosclerotic heart disease of [place] coronary artery without angina pectoris (5) Heart failure Code(s): I50.9 - HEART FAILURE, UNSPECIFIED Qualifiers: Heart failure type: systolic
[2019-01-30] MEDS: ATORVASTATIN CA 40 MG TABLET (FP) PO SCH (21:47)
[2019-01-31] MEDS: INSULIN SLIDING SCALE (NOVOLOG) 1 VIAL SQ SCH ×4 (06:35→21:34)
[2019-01-31] MEDS: HEPARIN NA (PORCINE) 5,000 UNITS/ML 1ML VIAL SQ SCH ×3 (06:36→21:35)
--- NOTE | 2019-01-31 08:27 | PN ---
Progress Note, Physician - Current Medication List Current Medications: Active Medications Acetaminophen (Tylenol -) 650 mg PO Q6H PRN PRN Reason: Fever Or Pain Last Admin: 01/30/19 22:13 Dose: 650 mg Aspirin (Asa -) 81 mg PO DAILY [facility] Last Admin: 01/30/19 10:00 Dose: 81 mg Atorvastatin Calcium (Lipitor -) 40 mg PO HS [facility] Last Admin: 01/30/19 21:47 Dose: 40 mg Carvedilol (Coreg -) 25 mg PO BID [facility] Last Admin: 01/30/19 21:47 Dose: 25 mg Dutasteride (Avodart -) 0.5 mg PO DAILY [facility] Last Admin: 01/30/19 10:10 Dose: 0.5 mg Heparin Sodium (Porcine) (Heparin -) 5,000 unit SQ TID [facility] Last Admin: 01/31/19 06:36 Dose: 5,000 unit Ertapenem 1 gm/ Sodium (Chloride) 50 mls @ 100 mls/hr IVPB DAILY [facility] Last Admin: 01/30/19 09:59 Dose: 100 mls/hr Insulin Aspart (Novolog Vial Sliding Scale -) 1 vial SQ ACHS [facility]; Protocol Last Admin: 01/31/19 06:35 Dose: Not Given Lactobacillus Acidophilus (Bacid -) 1 tab PO DAILY [facility] Last Admin: 01/30/19 09:59 Dose: 1 tab Lidocaine HCl (Xylocaine 2% Uro-Jet) 10 ml UR BID PRN PRN Reason: PAIN Polyethylene Glycol (Miralax (For Daily Use) -) 17 gm PO BID [facility] Last Admin: 01/30/19 21:29 Dose: Not Given Prasugrel (Effient -) 5 mg PO DAILY [facility] Last Admin: 01/30/19 09:59 Dose: 5 mg Ranolazine (Ranexa -) 500 mg PO BID [facility] Last Admin: 01/30/19 21:47 Dose: 500 mg Tamsulosin HCl (Flomax -) 0.8 mg PO DAILY@0830 [facility] Last Admin: 01/30/19 08:33 Dose: 0.8 mg Valsartan (Diovan -) 80 mg PO DAILY [facility] Last Admin: 01/30/19 10:00 Dose: 80 mg - Objective Vital Signs: Vital Signs Temperature 97.9 F 01/31/19 05:37 Pulse Rate 77 01/31/19 05:37 Respiratory Rate 18 01/31/19 05:37 Blood Pressure 122/77 01/31/19 05:37 O2 Sat by Pulse Oximetry (%) 98 01/30/19 21:00 Cardiovascular: Yes: Regular Rate and Rhythm Respiratory: Yes: Regular, CTA Bilaterally Gastrointestinal: Yes: Normal Bowel Sounds, Soft Genitourinary: Yes: Other (phimosis) Edema: No Neurological: Yes: Alert, Oriented Labs: CBC, BMP 01/30/19 07:00 01/30/19 07:00 INR, PTT INR 1.59 (0.83-1.09) H 01/26/19 11:09 Assessment/Plan - Problems (1) Anemia Assessment/Plan: -Hg 11.5 -monitor Code(s): D64.9 - ANEMIA, UNSPECIFIED (2) [id number] Assessment/Plan: -Urology on board -Nystatin -Pyridiun -add detrol -UC positive -flomax and avodart Code(s): R30.0 - DYSURIA (3) Sepsis Assessment/Plan: -ID on board -No Leukocytosis -afebrile -UC positive Microbiology 01/26/19 11:00 Blood - Peripheral Venous Blood Culture - Preliminary NO GROWTH OBTAINED AFTER 96 HOURS, INCUBATION TO CONTINUE FOR 1 DAYS. 01/26/19 11:09 Blood - Peripheral Venous Blood Culture - Preliminary NO GROWTH OBTAINED AFTER 96 HOURS, INCUBATION TO CONTINUE FOR 1 DAYS. 01/26/19 12:53 Urine - Urine Clean Catch Urine Culture - Final Escherichia Coli Esbl District Agent -BC neg -LA 3.4~1.8 -Ertapenem -Abd/Pelvic CT scan shows interval increased bilateral perinephric soft tissue stranding noted including increased thickening of pararenal fascia bilaterally, acute bilateral pyelonephritis or noninfectious nephritis Code(s): A41.9 - SEPSIS, UNSPECIFIED ORGANISM Qualifiers: Sepsis type: sepsis due to unspecified organism Sepsis acute organ dysfunction status: unspecified Qualified Code(s): A41.9 - Sepsis, unspecified organism (4) CAD (coronary artery disease) Assessment/Plan: -Cardiology on board -Aspirin Code(s): I25.10 - ATHSCL HEART DISEASE OF [place] CORONARY ARTERY W/O ANG PCTRS Qualifiers: Coronary Disease-Associated Artery/Lesion type: [place] artery [place] vs. 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
[2019-01-31] MEDS: TAMSULOSIN HCL 0.4 MG CAP PO SCH (08:30)
[2019-01-31] MEDS: ERTAPENEM SODIUM 1 GM in SODIUM CHLORIDE 50 ML IVPB SCH (10:27)
[2019-01-31] MEDS: DUTASTERIDE 0.5 MG CAP (FP) PO SCH (10:30)
[2019-01-31] MEDS: ASPIRIN 81 MG CHEWABLE TABLETS PO SCH (10:31)
[2019-01-31] MEDS: PRASUGREL HCL 5 MG TAB PO SCH (10:31)
[2019-01-31] MEDS: LACTOBACILLUS ACIDOPHILUS 1 TABLET PO SCH (10:31)
[2019-01-31] MEDS: CARVEDILOL 25 MG TABLET (FP) PO SCH ×2 (10:31→21:35)
[2019-01-31] MEDS: VALSARTAN 80 MG TABLET (UD) PO SCH (10:32)
[2019-01-31] MEDS: RANOLAZINE E.R. 500 MG TABLET (FP) PO SCH ×2 (10:33→21:35)
--- NOTE | 2019-01-31 10:33 | PN ---
Progress Note, Physician History of Present Illness: Afebrile, dysuria improving, flank pain resolved. - Current Medication List Current Medications: Active Medications Acetaminophen (Tylenol -) 650 mg PO Q6H PRN PRN Reason: Fever Or Pain Last Admin: 01/30/19 22:13 Dose: 650 mg Aspirin (Asa -) 81 mg PO DAILY [facility] Last Admin: 01/30/19 10:00 Dose: 81 mg Atorvastatin Calcium (Lipitor -) 40 mg PO HS [facility] Last Admin: 01/30/19 21:47 Dose: 40 mg Carvedilol (Coreg -) 25 mg PO BID [facility] Last Admin: 01/30/19 21:47 Dose: 25 mg Dutasteride (Avodart -) 0.5 mg PO DAILY [facility] Last Admin: 01/30/19 10:10 Dose: 0.5 mg Heparin Sodium (Porcine) (Heparin -) 5,000 unit SQ TID [facility] Last Admin: 01/31/19 06:36 Dose: 5,000 unit Ertapenem 1 gm/ Sodium (Chloride) 50 mls @ 100 mls/hr IVPB DAILY [facility] Last Admin: 01/30/19 09:59 Dose: 100 mls/hr Insulin Aspart (Novolog Vial Sliding Scale -) 1 vial SQ ACHS [facility]; Protocol Last Admin: 01/31/19 06:35 Dose: Not Given Lactobacillus Acidophilus (Bacid -) 1 tab PO DAILY [facility] Last Admin: 01/30/19 09:59 Dose: 1 tab Lidocaine HCl (Xylocaine 2% Uro-Jet) 10 ml UR BID PRN PRN Reason: PAIN Nystatin/Triamcinolone Acetonide (Mycolog Ii Ointment -) 1 applic TP BID [facility] Polyethylene Glycol (Miralax (For Daily Use) -) 17 gm PO BID [facility] Last Admin: 01/30/19 21:29 Dose: Not Given Prasugrel (Effient -) 5 mg PO DAILY [facility] Last Admin: 01/30/19 09:59 Dose: 5 mg Ranolazine (Ranexa -) 500 mg PO BID [facility] Last Admin: 01/30/19 21:47 Dose: 500 mg Tamsulosin HCl (Flomax -) 0.8 mg PO DAILY@0830 [facility] Last Admin: 01/30/19 08:33 Dose: 0.8 mg Tolterodine Tartrate (Detrol La -) 2 mg PO DAILY [facility] Valsartan (Diovan -) 80 mg PO DAILY [facility] Last Admin: 01/30/19 10:00 Dose: 80 mg - Objective Vital Signs: Vital Signs Temperature 97.9 F 01/31/19 05:37 Pulse Rate 77 01/31/19 05:37 Respiratory Rate 18 01/31/19 05:37 Blood Pressure 122/77 01/31/19 05:37 O2 Sat by Pulse Oximetry (%) 98 01/30/19 21:00 Constitutional: Yes: No Distress, Calm Neck: Yes: Supple Cardiovascular: Yes: Regular Rate and Rhythm Respiratory: Yes: Regular, CTA Bilaterally Gastrointestinal: Yes: Normal Bowel Sounds, Soft Edema: No Labs: CBC, BMP 01/30/19 07:00 01/30/19 07:00 INR, PTT INR 1.59 (0.83-1.09) H 01/26/19 11:09 Problem List - Problems (1) Sepsis Code(s): A41.9 - SEPSIS, UNSPECIFIED ORGANISM Qualifiers: Sepsis type: sepsis due to unspecified organism Sepsis acute organ dysfunction status: unspecified Qualified Code(s): A41.9 - Sepsis, unspecified organism (2) CAD (coronary artery disease) Code(s): I25.10 - ATHSCL HEART DISEASE OF [place] CORONARY ARTERY W/O ANG PCTRS Qualifiers: Coronary Disease-Associated Artery/Lesion type: [place] artery [place] vs. 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 (4) Hyperlipidemia associated with type 2 diabetes mellitus Code(s): E11.69 - TYPE 2 DIABETES MELLITUS WITH OTHER SPECIFIED COMPLICATION; E78.5 - HYPERLIPIDEMIA, UNSPECIFIED (5) Hypertensive cardiomyopathy Code(s): I11.9 - HYPERTENSIVE HEART DISEASE WITHOUT HEART FAILURE; I43 - CARDIOMYOPATHY IN DISEASES CLASSIFIED ELSEWHERE Qualifiers: Heart failure presence: without heart failure Qualified Code(s): I11.9 - Hypertensive heart disease without heart failure; I43 - Cardiomyopathy in diseases classified elsewhere (6) Ischemic cardiomyopathy Code(s): I25.5 - ISCHEMIC CARDIOMYOPATHY (7) S/P coronary artery stent placement Code(s): Z95.5 - PRESENCE OF CORONARY ANGIOPLASTY IMPLANT AND GRAFT Assessment/Plan 01/27/[address] scan abd/pelvis: No hydro, + bilateral perinephric stranding 01/26/2019 Echo: Normal LV and RV size and fxn LVEF 50-55%, trace-mild MR, mild TR 01/03/2017 Cardiac MRI LVEF 40% with anteroseptal and anterior infarcts 11/29/2016 LHC: LVEF 35%, patent LADstent, occluded LCx-OM1 not amenable to intervention, and patent prox-mid RCA stent 03/01/2016 Echo: Prob preserved LV fxn with anterior HK, mild MR, TR 03/01/2016 P-Myoview: Large lateral, inferolateral infarct with small zone periinfarct ischemia, LVEF 31% 1. Sepsis source post cystoscopy h/o bladder cancer (E. coli prostatitis and pyelonephritis) resolved 2. CAD s/p [place], multivessel PCI 3. Ischemic cardiomyopathy with improved LVEF 4. HTN/HCVD 5. Type 2 DM 6. Hyperlipidemia 7. PAD 8. Post laparoscopic cholecystectomy 9. BPH PLAN: 1. Continue ertapenem via picc line for 3 weeks 2. Continue ASA 81 mg QD, Effient 5 mg QD, Lipitor 40 mg QD, Ranexa 500 mg BID, Vascepa 2 g BID. Continue Carvedilol 25 mg BID and Valsartan 80 mg QD as tolerated 3. DVT and GI prophylaxis 4. Plan for BPH minimally invasive procedure in future
[2019-01-31] MEDS: POLYETHYLENE GLYCOL 3350 119 GM BTL PO SCH ×2 (10:34→21:35)
[2019-01-31] MEDS: NYSTATIN/TRIAMCINOLONE TOPICAL OINTMENT 15 GM TUBE TP SCH ×2 (11:23→21:35)
[2019-01-31] MEDS ORDERED: INSULIN (NOVOLOG) ASPART 100 UNITS/ML 10ML VIAL ONE (11:27)
[2019-01-31] MEDS: PANTOPRAZOLE 40 MG TABLET (FP) PO SCH (11:28)
[2019-01-31] MEDS: TOLTERODINE TARTRATE LA 2 MG CAP.SR.24H PO SCH (11:58)
[2019-01-31] MEDS: ATORVASTATIN CA 40 MG TABLET (FP) PO SCH (21:35)
[2019-02-01] MEDS: HEPARIN NA (PORCINE) 5,000 UNITS/ML 1ML VIAL SQ SCH ×3 (06:16→21:35)
[2019-02-01] MEDS: INSULIN SLIDING SCALE (NOVOLOG) 1 VIAL SQ SCH ×4 (06:16→21:42)
[2019-02-01] MEDS: TAMSULOSIN HCL 0.4 MG CAP PO SCH (09:29)
[2019-02-01 09:35] LABS: BASO % 0.7 % (0-2.0); EOS % 1.2 % (0-4.5); HEMATOCRIT 37.6 % (35.4-49); HEMOGLOBIN 12.2 GM/dL (11.7-16.9); LYMPH % 14.2 % (8-40); MCHC 32.5 g/dl (32.0-35.9); MEAN CELL VOLUME 73.9 fl (80-96); MONO % 10.8 % (3.8-10.2); NEUT % 73.1 % (42.8-82.8); PLATELET COUNT 260 K/MM3 (134-434); RBC 5.09 M/mm3 (4.00-5.60); RDW 16.5 % (11.9-15.9); WHITE BLOOD COUNT 10.2 K/mm3 (4.0-10.0)
--- NOTE | 2019-02-01 09:43 | PN ---
Progress Note, Physician History of Present Illness: Afebrile, dysuria improving, flank pain resolved. - Current Medication List Current Medications: Active Medications Acetaminophen (Tylenol -) 650 mg PO Q6H PRN PRN Reason: Fever Or Pain Last Admin: 01/30/19 22:13 Dose: 650 mg Aspirin (Asa -) 81 mg PO DAILY [facility] Last Admin: 01/31/19 10:31 Dose: 81 mg Atorvastatin Calcium (Lipitor -) 40 mg PO HS [facility] Last Admin: 01/31/19 21:35 Dose: 40 mg Carvedilol (Coreg -) 25 mg PO BID [facility] Last Admin: 01/31/19 21:35 Dose: 25 mg Dutasteride (Avodart -) 0.5 mg PO DAILY [facility] Last Admin: 01/31/19 10:30 Dose: 0.5 mg Heparin Sodium (Porcine) (Heparin -) 5,000 unit SQ TID [facility] Last Admin: 02/01/19 06:16 Dose: 5,000 unit Ertapenem 1 gm/ Sodium (Chloride) 50 mls @ 100 mls/hr IVPB DAILY [facility] Last Admin: 01/31/19 10:27 Dose: 100 mls/hr Insulin Aspart (Novolog Vial Sliding Scale -) 1 vial SQ ACHS [facility]; Protocol Last Admin: 02/01/19 06:16 Dose: 2 units Lactobacillus Acidophilus (Bacid -) 1 tab PO DAILY [facility] Last Admin: 01/31/19 10:31 Dose: 1 tab Lidocaine HCl (Xylocaine 2% Uro-Jet) 10 ml UR BID PRN PRN Reason: PAIN Nystatin/Triamcinolone Acetonide (Mycolog Ii Ointment -) 1 applic TP BID [facility] Last Admin: 01/31/19 21:35 Dose: 1 applic Pantoprazole Sodium (Protonix -) 40 mg PO DAILY [facility] Last Admin: 01/31/19 11:28 Dose: 40 mg Polyethylene Glycol (Miralax (For Daily Use) -) 17 gm PO BID [facility] Last Admin: 01/31/19 21:35 Dose: Not Given Prasugrel (Effient -) 5 mg PO DAILY [facility] Last Admin: 01/31/19 10:31 Dose: 5 mg Ranolazine (Ranexa -) 500 mg PO BID [facility] Last Admin: 01/31/19 21:35 Dose: 500 mg Tamsulosin HCl (Flomax -) 0.8 mg PO DAILY@0830 [facility] Last Admin: 01/31/19 08:30 Dose: 0.8 mg Tolterodine Tartrate (Detrol La -) 2 mg PO DAILY [facility] Last Admin: 01/31/19 11:58 Dose: 2 mg Valsartan (Diovan -) 80 mg PO DAILY [facility] Last Admin: 01/31/19 10:32 Dose: 80 mg - Objective Vital Signs: Vital Signs Temperature 97.9 F 02/01/19 06:00 Pulse Rate 80 02/01/19 06:00 Respiratory Rate 18 02/01/19 06:00 Blood Pressure 127/79 02/01/19 06:00 O2 Sat by Pulse Oximetry (%) 98 01/31/19 21:00 Constitutional: Yes: No Distress, Calm Neck: Yes: Supple Cardiovascular: Yes: Regular Rate and Rhythm Respiratory: Yes: Regular, CTA Bilaterally Gastrointestinal: Yes: Normal Bowel Sounds, Soft Edema: No Labs: CBC, BMP 02/01/19 09:15 INR, PTT INR 1.59 (0.83-1.09) H 01/26/19 11:09 Problem List - Problems (1) Sepsis Code(s): A41.9 - SEPSIS, UNSPECIFIED ORGANISM Qualifiers: Sepsis type: sepsis due to unspecified organism Sepsis acute organ dysfunction status: unspecified Qualified Code(s): A41.9 - Sepsis, unspecified organism (2) CAD (coronary artery disease) Code(s): I25.10 - ATHSCL HEART DISEASE OF [place] CORONARY ARTERY W/O ANG PCTRS Qualifiers: Coronary Disease-Associated Artery/Lesion type: [place] artery [place] vs. transplanted heart: [place] heart Associated angina: without angina Qualified Code(s): I25.10 - Atherosclerotic heart disease of [place] coronary artery without angina pectoris (3) Diabetes Code(s): E11.9 - TYPE 2 DIABETES MELLITUS WITHOUT COMPLICATIONS Qualifiers: Diabetes mellitus type: type 2 Diabetes mellitus [facility] insulin use: with terminal manager use (4) Hyperlipidemia associated with type 2 diabetes mellitus Code(s): E11.69 - TYPE 2 DIABETES MELLITUS WITH OTHER SPECIFIED COMPLICATION; E78.5 - HYPERLIPIDEMIA, UNSPECIFIED (5) Hypertensive cardiomyopathy Code(s): I11.9 - HYPERTENSIVE HEART DISEASE WITHOUT HEART FAILURE; I43 - CARDIOMYOPATHY IN DISEASES CLASSIFIED ELSEWHERE Qualifiers: Heart failure presence: without heart failure Qualified Code(s): I11.9 - Hypertensive heart disease without heart failure; I43 - Cardiomyopathy in diseases classified elsewhere (6) Ischemic cardiomyopathy Code(s): I25.5 - ISCHEMIC CARDIOMYOPATHY (7) S/P coronary artery stent placement Code(s): Z95.5 - PRESENCE OF CORONARY ANGIOPLASTY IMPLANT AND GRAFT Assessment/Plan 01/27/[address] scan abd/pelvis: No hydro, + bilateral perinephric stranding 01/26/2019 Echo: Normal LV and RV size and fxn LVEF 50-55%, trace-mild MR, mild TR 01/03/2017 Cardiac MRI LVEF 40% with anteroseptal and anterior infarcts 11/29/2016 LHC: LVEF 35%, patent LADstent, occluded LCx-OM1 not amenable to intervention, and patent prox-mid RCA stent 03/01/2016 Echo: Prob preserved LV fxn with anterior HK, mild MR, TR 03/01/2016 P-Myoview: Large lateral, inferolateral infarct with small zone periinfarct ischemia, LVEF 31% 1. Sepsis source post cystoscopy h/o bladder cancer (E. coli prostatitis and pyelonephritis) resolved 2. CAD s/p [place], multivessel PCI 3. Ischemic cardiomyopathy with improved LVEF 4. HTN/HCVD 5. Type 2 DM 6. Hyperlipidemia 7. PAD 8. Post laparoscopic cholecystectomy 9. BPH PLAN: 1. Continue ertapenem via picc line for 3 weeks 2. Continue ASA 81 mg QD, Effient 5 mg QD, Lipitor 40 mg QD, Ranexa 500 mg BID, Vascepa 2 g BID. Continue Carvedilol 25 mg BID and Valsartan 80 mg QD as tolerated 3. DVT and GI prophylaxis 4. Plan for BPH minimally invasive procedure in future
[2019-02-01 10:07] LABS: ALBUMIN 3.1 g/dl (3.4-5.0); BILIRUBIN,TOTAL 0.4 mg/dL (0.2-1); BLOOD UREA NITROGEN 16.6 mg/dL (7-18); CALCIUM 8.9 mg/dL (8.5-10.1); CREATININE 0.9 mg/dL (0.55-1.3); POTASSIUM 4.5 mmol/L (3.5-5.1); TOT PROT 6.8 g/dl (6.4-8.2)
[2019-02-01] MEDS: PANTOPRAZOLE 40 MG TABLET (FP) PO SCH (10:28)
[2019-02-01] MEDS: DUTASTERIDE 0.5 MG CAP (FP) PO SCH (10:28)
[2019-02-01] MEDS: CARVEDILOL 25 MG TABLET (FP) PO SCH ×2 (10:29→21:35)
[2019-02-01] MEDS: PRASUGREL HCL 5 MG TAB PO SCH (10:29)
[2019-02-01] MEDS: LACTOBACILLUS ACIDOPHILUS 1 TABLET PO SCH (10:30)
[2019-02-01] MEDS: VALSARTAN 80 MG TABLET (UD) PO SCH (10:30)
[2019-02-01] MEDS: ASPIRIN 81 MG CHEWABLE TABLETS PO SCH (10:30)
[2019-02-01] MEDS: POLYETHYLENE GLYCOL 3350 119 GM BTL PO SCH ×2 (10:31→21:35)
[2019-02-01] MEDS: ERTAPENEM SODIUM 1 GM in SODIUM CHLORIDE 50 ML IVPB SCH (10:31)
[2019-02-01] MEDS: RANOLAZINE E.R. 500 MG TABLET (FP) PO SCH ×2 (10:33→21:35)
[2019-02-01] MEDS: TOLTERODINE TARTRATE LA 2 MG CAP.SR.24H PO SCH (10:34)
[2019-02-01] MEDS: NYSTATIN/TRIAMCINOLONE TOPICAL OINTMENT 15 GM TUBE TP SCH ×2 (10:36→21:48)
--- NOTE | 2019-02-01 11:46 | PN ---
Progress Note, Physician Chief Complaint: Urosepsis History of Present Illness: Previous notes and events reviewed awake and alert NAD continue have dysuria, denies hematuria UC positive leukocytosis complain of one episode of rectal bleeding last night~Stool OB ordered - Current Medication List Current Medications: Active Medications Acetaminophen (Tylenol -) 650 mg PO Q6H PRN PRN Reason: Fever Or Pain Last Admin: 01/30/19 22:13 Dose: 650 mg Aspirin (Asa -) 81 mg PO DAILY [facility] Last Admin: 02/01/19 10:30 Dose: 81 mg Atorvastatin Calcium (Lipitor -) 40 mg PO HS [facility] Last Admin: 01/31/19 21:35 Dose: 40 mg Carvedilol (Coreg -) 25 mg PO BID [facility] Last Admin: 02/01/19 10:29 Dose: 25 mg Dutasteride (Avodart -) 0.5 mg PO DAILY [facility] Last Admin: 02/01/19 10:28 Dose: 0.5 mg Heparin Sodium (Porcine) (Heparin -) 5,000 unit SQ TID [facility] Last Admin: 02/01/19 06:16 Dose: 5,000 unit Ertapenem 1 gm/ Sodium (Chloride) 50 mls @ 100 mls/hr IVPB DAILY [facility] Last Admin: 02/01/19 10:31 Dose: 100 mls/hr Insulin Aspart (Novolog Vial Sliding Scale -) 1 vial SQ ACHS [facility]; Protocol Last Admin: 02/01/19 06:16 Dose: 2 units Lactobacillus Acidophilus (Bacid -) 1 tab PO DAILY [facility] Last Admin: 02/01/19 10:30 Dose: 1 tab Lidocaine HCl (Xylocaine 2% Uro-Jet) 10 ml UR BID PRN PRN Reason: PAIN Nystatin/Triamcinolone Acetonide (Mycolog Ii Ointment -) 1 applic TP BID [facility] Last Admin: 02/01/19 10:36 Dose: 1 applic Pantoprazole Sodium (Protonix -) 40 mg PO DAILY [facility] Last Admin: 02/01/19 10:28 Dose: 40 mg Polyethylene Glycol (Miralax (For Daily Use) -) 17 gm PO BID [facility] Last Admin: 02/01/19 10:31 Dose: Not Given Prasugrel (Effient -) 5 mg PO DAILY [facility] Last Admin: 02/01/19 10:29 Dose: 5 mg Ranolazine (Ranexa -) 500 mg PO BID [facility] Last Admin: 02/01/19 10:33 Dose: 500 mg Tamsulosin HCl (Flomax -) 0.8 mg PO DAILY@0830 [facility] Last Admin: 02/01/19 09:29 Dose: 0.8 mg Tolterodine Tartrate (Detrol La -) 2 mg PO DAILY [facility] Last Admin: 02/01/19 10:34 Dose: 2 mg Valsartan (Diovan -) 80 mg PO DAILY [facility] Last Admin: 02/01/19 10:30 Dose: 80 mg - Objective Vital Signs: Vital Signs Temperature 97.9 F 02/01/19 06:00 Pulse Rate 80 02/01/19 06:00 Respiratory Rate 18 02/01/19 06:00 Blood Pressure 127/79 02/01/19 06:00 O2 Sat by Pulse Oximetry (%) 98 01/31/19 21:00 Constitutional: Yes: No Distress, Calm Eyes: Yes: Conjunctiva Clear HENT: Yes: Atraumatic Cardiovascular: Yes: Regular Rate and Rhythm Respiratory: Yes: Regular, CTA Bilaterally Gastrointestinal: Yes: Normal Bowel Sounds, Soft Musculoskeletal: Yes: Muscle Weakness Extremities: Yes: WNL Edema: No Neurological: Yes: Alert, Oriented Psychiatric: Yes: Alert, Oriented Labs: CBC, BMP 02/01/19 09:15 02/01/19 09:15 INR, PTT INR 1.59 (0.83-1.09) H 01/26/19 11:09 Microbiology 01/26/19 11:00 Blood - Peripheral Venous Blood Culture - Final NO GROWTH AFTER 5 DAYS INCUBATION 01/26/19 11:09 Blood - Peripheral Venous Blood Culture - Final NO GROWTH AFTER 5 DAYS INCUBATION 01/26/19 12:53 Urine - Urine Clean Catch Urine Culture - Final Escherichia Coli 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 [employer] Problem List - Problems (1) Anemia Assessment/Plan: -Hg 12.2 -monitor Hg daily -transfuse for Hg <7.0 to avoid overload -Iron Polysaccharide daily Code(s): D64.9 - ANEMIA, UNSPECIFIED (2) Dysuria Assessment/Plan: -Urology on board -Pyridiun -UC positive -Ertapenem -ID on board Code(s): R30.0 - DYSURIA (3) Sepsis Assessment/Plan: -ID on board -WBC 10.2 -Ertapenem~will need PICC line and 3 week course IV antibiotics -afebrile -UC positive -BC neg -LA 3.4~1.8 -Abd/Pelvic CT scan shows interval increased bilateral perinephric soft tissue stranding noted including increased thickening of pararenal fascia bilaterally, acute bilateral pyelonephritis or noninfectious nephritis Code(s): A41.9 - SEPSIS, UNSPECIFIED ORGANISM Qualifiers: Sepsis type: sepsis due to unspecified organism Sepsis acute organ dysfunction status: unspecified Qualified Code(s): A41.9 - Sepsis, unspecified organism (4) CAD (coronary artery disease) Assessment/Plan: -Cardiology on board -Aspirin Code(s): I25.10 - ATHSCL HEART DISEASE OF [place] CORONARY ARTERY W/O ANG PCTRS Qualifiers: Coronary Disease-Associated Artery/Lesion type: [place] artery [place] vs. transplanted heart: [place] heart Associated angina: without angina Qualified Code(s): I25.10 - Atherosclerotic heart disease of [place] coronary artery without angina pectoris (5) Diabetes Assessment/Plan: -BGM ACHS -ISS -Diabetic diet Code(s): E11.9 - TYPE 2 DIABETES MELLITUS WITHOUT COMPLICATIONS Qualifiers: Diabetes mellitus type: type 2 Diabetes mellitus chcf insulin use: with chcf use (6) Heart failure Assessment/Plan: -1L fluid restriction -daily weights -Coreg, Diovan, and Ranexa Code(s): I50.9 - HEART FAILURE, UNSPECIFIED Qualifiers: Heart failure type: systolic (7) Bladder cancer Assessment/Plan: -Urology on board -Tamsulosin -bladder scan q6h -straight cath q6h for residual >600cc Code(s): C67.9 - MALIGNANT NEOPLASM OF BLADDER, UNSPECIFIED Assessment/Plan see problem list dvt ppx
[2019-02-01 12:10] LABS: ANISOCYTOSIS 1+; MACROCYTOSIS 0; OVALOCYTE 1+; PLATELET ESTIMATE NORMAL
--- NOTE | 2019-02-01 13:47 | PN ---
Progress Note (short form) - Note Progress Note: feels better afebrile less dysuria prostatitis and pyelo s/p cysto cont flomax abx as per ID outpt f/u
[2019-02-01] MEDS ORDERED: PT OWN MED DRAWER 7, Y5N ONE (20:24)
[2019-02-01] MEDS: ATORVASTATIN CA 40 MG TABLET (FP) PO SCH (21:35)
[2019-02-02] MEDS: INSULIN SLIDING SCALE (NOVOLOG) 1 VIAL SQ SCH ×2 (06:10→13:13)
[2019-02-02] MEDS: HEPARIN NA (PORCINE) 5,000 UNITS/ML 1ML VIAL SQ SCH (06:12)
[2019-02-02 06:28] VITALS: PULSE 89
[2019-02-02] MEDS ORDERED: INSULIN (NOVOLOG) ASPART 100 UNITS/ML 10ML VIAL ONE (06:29)
[2019-02-02] MEDS ORDERED: INSULIN (LEVEMIR) 100 UNITS/ML UNITS SQ ONE (06:29)
[2019-02-02] MEDS ORDERED: glipiZIDE-XL 10 MG TAB.ER.24 (FP) PO SCH (07:45)
[2019-02-02 08:18] LABS: HEMATOCRIT 37.3 % (35.4-49); HEMOGLOBIN 12.4 GM/dL (11.7-16.9); MCH 24.2 pg (25.7-33.7); MCHC 33.1 g/dl (32.0-35.9); MEAN PLT VOLUME 7.7 fl (7.5-11.1); PLATELET COUNT 298 K/MM3 (134-434); RBC 5.12 M/mm3 (4.00-5.60); RDW 16.6 % (11.9-15.9); WHITE BLOOD COUNT 9.3 K/mm3 (4.0-10.0)
--- NOTE | 2019-02-02 08:30 | DS ---
Physical Examination Vital Signs: Vital Signs Temperature 97.9 F 02/02/19 06:00 Pulse Rate 89 02/02/19 06:00 Respiratory Rate 18 02/02/19 06:00 Blood Pressure 109/70 02/02/19 06:00 O2 Sat by Pulse Oximetry (%) 96 02/01/19 21:00 Cardiovascular: Yes: Regular Rate and Rhythm Respiratory: Yes: Regular, CTA Bilaterally Gastrointestinal: Yes: Normal Bowel Sounds, Soft. No: Tenderness Labs: CBC, BMP 02/02/19 08:00 Discharge Summary Problems reviewed: Yes Reason For Visit: SEPSIS Current Active Problems Anemia (Acute) BPH (benign prostatic hyperplasia) (Acute) Dysuria (Acute) HTN (hypertension) (Acute) Heart failure (Acute) Hypercholesterolemia (Acute) Sepsis (Acute) Septic shock (Acute) Hospital Course: - Problems (1) Anemia Assessment/Plan: -Hg 12.2 -monitor Hg daily -transfuse for Hg <7.0 to avoid overload -Iron Polysaccharide daily Code(s): D64.9 - ANEMIA, UNSPECIFIED (2) Dysuria Assessment/Plan: -Urology on board -improving -UC positive -Ertapenem -ID on board Code(s): R30.0 - DYSURIA (3) Sepsis Assessment/Plan: -ID on board -WBC 10.2 -Ertapenem~will need PICC line and 3 week course IV antibiotics -afebrile -UC positive -BC neg -LA 3.4~1.8 -Abd/Pelvic CT scan shows interval increased bilateral perinephric soft tissue stranding noted including increased thickening of pararenal fascia bilaterally, acute bilateral pyelonephritis or noninfectious nephritis Code(s): A41.9 - SEPSIS, UNSPECIFIED ORGANISM Qualifiers: Sepsis type: sepsis due to unspecified organism Sepsis acute organ dysfunction status: unspecified Qualified Code(s): A41.9 - Sepsis, unspecified organism (4) CAD (coronary artery disease) Assessment/Plan: -Cardiology on board -Aspirin Code(s): I25.10 - ATHSCL HEART DISEASE OF [place] CORONARY ARTERY W/O ANG PCTRS Qualifiers: Coronary Disease-Associated Artery/Lesion type: [place] artery [place] vs. 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 (6) Heart failure Assessment/Plan: -1L fluid restriction -daily weights -Coreg, Diovan, and Ranexa Code(s): I50.9 - HEART FAILURE, UNSPECIFIED Qualifiers: Heart failure type: systolic (7) Bladder cancer Assessment/Plan: -Urology on board -Tamsulosin -bladder scan q6h -straight cath q6h for residual >600cc Code(s): C67.9 - MALIGNANT NEOPLASM OF [place], UNSPECIFIED dc home Condition: Guarded - Instructions Referrals: Aleja Brown MD [Primary Care Provider] - 1 Week - Home Medications Comprehensive Discharge Medication List: Ambulatory Orders Aspirin [ASA -] 81 mg PO DAILY 03/02/16 Carvedilol 25 mg PO BID 03/02/16 Insulin Glulisine [Apidra Solostar] 100 unit SQ ASDIR 03/02/16 Linagliptin/Metformin HCl [Jentadueto 2.5 mg-1000 mg Tab] 1 each PO BID Omeprazole 40 mg PO DAILY 03/02/16 Prasugrel HCl [Effient] 5 mg PO DAILY 03/02/16 Ranolazine [Ranexa] 500 mg PO BID #60 tab.er.12h 05/06/17 Ergocalciferol [Vitamin D2] 50,000 unit PO Q7D@1000 01/26/19 Glipizide [Glipizide Xl] 10 mg PO ASDIR 01/26/19 Tamsulosin HCl [Flomax -] 0.4 mg PO DAILY 01/26/19 Atorvastatin Ca [Lipitor] 40 mg PO HS #30 tablet 02/02/19 Dutasteride [Avodart] 0.5 mg PO DAILY #30 cap 02/02/19 Ertapenem Sodium [Invanz -] 1 gm IVPB DAILY #14 vial 02/02/19 Lactobacillus Acidophilus [Bacid -] 1 tab PO DAILY tab 02/02/19 Nystatin/Triamcinolone Top Oin [Mycolog II -] 1 applic TP BID #30 grams Polyethylene Glycol 3350 [Miralax 119 gm Btl -] 17 gm PO BID bottle 02/02/19 Tamsulosin HCl [Flomax -] 0.8 mg PO DAILY@0830 #60 cap.er.24h 02/02/19 Tolterodine Tartrate LA [Detrol LA -] 2 mg PO DAILY #30 cap.sr.24h 02/02/19 Valsartan [Diovan] 80 mg PO DAILY #30 tablet 02/02/19
[2019-02-02 08:54] LABS: ALBUMIN 3.2 g/dl (3.4-5.0); BILIRUBIN,TOTAL 0.5 mg/dL (0.2-1); BLOOD UREA NITROGEN 16.4 mg/dL (7-18); CALCIUM 9.3 mg/dL (8.5-10.1); CREATININE 0.9 mg/dL (0.55-1.3); POTASSIUM 4.7 mmol/L (3.5-5.1); TOT PROT 6.9 g/dl (6.4-8.2)
[2019-02-02] MEDS ORDERED: PT OWN MED DRAWER 7, Y5N ONE (09:02)
[2019-02-02] MEDS: TAMSULOSIN HCL 0.4 MG CAP PO SCH (10:00)
[2019-02-02] MEDS: RANOLAZINE E.R. 500 MG TABLET (FP) PO SCH (10:01)
[2019-02-02] MEDS: CARVEDILOL 25 MG TABLET (FP) PO SCH (10:01)
[2019-02-02] MEDS: VALSARTAN 80 MG TABLET (UD) PO SCH (10:01)
[2019-02-02] MEDS: PANTOPRAZOLE 40 MG TABLET (FP) PO SCH (10:01)
[2019-02-02] MEDS: LACTOBACILLUS ACIDOPHILUS 1 TABLET PO SCH (10:02)
[2019-02-02] MEDS: TOLTERODINE TARTRATE LA 2 MG CAP.SR.24H PO SCH (10:02)
[2019-02-02 10:46] VITALS: BP 141/54; TEMP 98
[2019-02-02] MEDS: ERTAPENEM SODIUM 1 GM in SODIUM CHLORIDE 50 ML IVPB SCH (12:20)
[2019-02-02] MEDS: ASPIRIN 81 MG CHEWABLE TABLETS PO SCH (12:20)
[2019-02-02] MEDS: PRASUGREL HCL 5 MG TAB PO SCH (12:20)
[2019-02-02] MEDS: POLYETHYLENE GLYCOL 3350 119 GM BTL PO SCH (12:21)
[2019-02-02] MEDS: DUTASTERIDE 0.5 MG CAP (FP) PO SCH (12:21)
[2019-02-02 14:07] LABS: ANISOCYTOSIS 2+; MACROCYTOSIS 0; OVALOCYTE 1+; PLATELET ESTIMATE NORMAL; TARGET CELLS 1+; TEAR DROP CELLS 1+
== END 2019-02-02 13:27 | disposition home or self-care (01) | DRG 862 ==
LOC: JER 10:27 → JERBED 13:19 → JICU 18:26 → J7W 01-28 12:11
PROVIDERS: ADMIT Family Medicine; ATTEND Family Medicine
PROC: 02HV33Z Insertion of Infusion Device into Superior Vena Cava, Percutaneous Approach (ICD-10-PCS; principal; 2019-01-26)
PROC: 02HV33Z Insertion of Infusion Device into Superior Vena Cava, Percutaneous Approach (ICD-10-PCS; 2019-02-02)
PROC: B548ZZA Ultrasonography of Superior Vena Cava, Guidance (ICD-10-PCS; 2019-02-02)
DX: T81.44XA Sepsis following a procedure, initial encounter (principal); R65.21 Severe sepsis with septic shock; I50.32 Chronic diastolic (congestive) heart failure; N39.0 Urinary tract infection, site not specified; E11.9 Type 2 diabetes mellitus without complications; I25.2 Old myocardial infarction; E78.5 Hyperlipidemia, unspecified; I25.10 Atherosclerotic heart disease of native coronary artery without angina pectoris; Z95.5 Presence of coronary angioplasty implant and graft; C67.9 Malignant neoplasm of bladder, unspecified; N40.0 Benign prostatic hyperplasia without lower urinary tract symptoms; I11.0 Hypertensive heart disease with heart failure; I25.5 Ischemic cardiomyopathy; D64.9 Anemia, unspecified; B96.20 Unspecified Escherichia coli [E. coli] as the cause of diseases classified elsewhere; R33.9 Retention of urine, unspecified; N41.9 Inflammatory disease of prostate, unspecified; K59.00 Constipation, unspecified; E86.0 Dehydration; I44.4 Left anterior fascicular block; Y83.8 Other surgical procedures as the cause of abnormal reaction of the patient, or of later complication, without mention of misadventure at the time of the procedure; Z79.4 Long term (current) use of insulin
CPT/HCPCS: 36415; 36569; 71045-TC-FY; 74176-TC; 76775-TC; 76856-TC; 77001-TC-FY; 80053; 81003; 82150; 82272; 82550; 82553; 82803; 82962; 83036; 83540; 83550; 83605; 83690; 83735; 84100; 84484; 85025; 85027; 85610; 85730; 86850; 86900; 86901; 87040; 87086; 87186; 93005; 93010; 93306-TC; 99285-25; C1751; G0008; J0131; J1644; J7030; Q2036

== ENCOUNTER 2019-02-20 14:04 | Emergency (ER) | payer OTHER, BC ==
--- NOTE | 2019-02-20 14:07 | PDOC ---
Rapid Medical Evaluation Time Seen by Provider: 02/20/19 14:06 Medical Evaluation: Allergies Allergy/AdvReac Type Severity Reaction Status Date / Time No Known Allergies Allergy Verified 12/14/17 13:48 02/20/19 14:07 I have performed a brief in-person evaluation of this patient. The patient presents with a chief complaint of: Here to have RUE PICC line removed. Received last dose of ertapenem via PICC this am after being admitted to [facility] for sepsis several weeks ago. States nurse was to come to remove PICC today but that she never came. Feels well, no acute medical complaints at this time. PMD Dr Vences Pertinent physical exam findings:Stable and well brianna I have ordered the following:nothing The patient will proceed to the ED for further evaluation. 02/20/19 14:09 Discharge Disposition - Diagnosis S/P PICC central line placement - Referrals - Patient Instructions - Post Discharge Activity
[2019-02-20 14:10] VITALS: BP 96/70; PULSE 96; TEMP 98; BMI 29.5
--- NOTE | 2019-02-20 15:36 | PDOC ---
History of Present Illness - General Stated Complaint: PICC LINE REMOVAL Time Seen by Provider: 02/20/19 14:06 - History of Present Illness Initial Comments: 02/20/19 15:30 CHIEF COMPLAINT: PICC line removal HISTORY OF PRESENT ILLNESS: 68 yo M with hx of sepsis presents to fast track for PICC line removal. Patient had PICC line placed on 01/26/19 for IV antibiotics. Patient reports that the VNS that had been administering his IV antibiotics was supposed to come to his house and take out the PICC line yesterday but she did not show up, and she did not show up again today. Patient denies any tenderness, pain, or swelling, to site of insertion. Denies fever, chills, or any other symptoms. No recent travel or sick contacts. PAST MEDICAL HISTORY: Denies past medical history FAMILY HISTORY: Denies SOCIAL HISTORY: Denies tobacco, alcohol, illicit drug use. SURGICAL HISTORY: Denies ALLERGIES: No known drug allergies REVIEW OF SYSTEMS General/Constitutional: Denies fever or chills. Denies weakness, weight change. HEENT: Denies change in vision. Denies ear pain or discharge. Denies sore throat. Cardiovascular: Denies chest pain or shortness of breath. Respiratory: Denies cough, wheezing, or hemoptysis. Gastrointestinal: Denies nausea, vomiting, diarrhea or constipation. Denies rectal bleeding. Genitourinary: Denies dysuria, frequency, or change in urination. Musculoskeletal: Denies joint or muscle swelling or pain. Denies neck or back pain. Skin and breasts: Denies rash or easy bruising. Neurologic: Denies headache, vertigo, loss of consciousness, or loss of sensation. Psychiatric: Denies depression or anxiety. Endocrine: Denies increased thirst. Denies abnormal weight change. Hematologic/Lymphatic: Denies anemia, easy bleeding, or history of blood clots. Allergic/Immunologic: Denies hives or skin allergy. Denies latex allergy. PHYSICAL EXAM General Appearance: Well-appearing, appropriately dressed. No apparent distress , no intoxication. HEENT: EOMI, PERRLA, normal ENT inspection, normal voice, TMs normal, pharynx normal. No conjunctival pallor. No photophobia, scleral icterus. Neck: Supple. Trachea midline. No tenderness, rigidity, carotid bruit, stridor , lymphadenopathy, or thyromegaly. Respiratory/Chest: Lungs CTAB. No shortness of breath, chest tenderness, respiratory distress, accessory muscle use. No crackles, rales, rhonchi, stridor , wheezing, dullness Cardiovascular: RRR. S1, S2. No JVD, murmur, bradycardia, tachycardia. Vascular Pulses: Dorsalis-Pedis (R): 2+, Dorsalis-Pedis (L): 2+ Gastrointestinal/Abdominal: Normal bowel sounds. Abdomen soft, non-distended. No tenderness or rebound tenderness. No organomegaly, pulsatile mass, guarding , hernia, hepatomegaly, splenomegaly. Lymphatic: No adenopathy, tenderness. Musculoskeletal/Extremities: PICC line to R upper arm. Normal inspection. FROM of all extremities, normal capillary refill. Pelvis Stable. No CVA tenderness. No tenderness to extremities, pedal edema, swelling, erythema or deformity. Integumentary: Appropriate color, dry, warm. No cyanosis, erythema, jaundice or rash Neurologic: scrap charger II-XII intact. Fully oriented, alert. Appropriate mood/affect. Motor strength 5/5. No appreciable EOM palsy, facial droop or sensory deficit. 02/20/19 16:11 Past History - Past Medical History Allergies/Adverse Reactions: Allergies Allergy/AdvReac Type Severity Reaction Status Date / Time No Known Allergies Allergy Verified 02/20/19 14:10 Home Medications: Ambulatory Orders Aspirin [ASA -] 81 mg PO DAILY 03/02/16 Carvedilol 25 mg PO BID 03/02/16 Insulin Glulisine [Apidra Solostar] 100 unit SQ ASDIR 03/02/16 Linagliptin/Metformin HCl [Jentadueto 2.5 mg-1000 mg Tab] 1 each PO BID Omeprazole 40 mg PO DAILY 03/02/16 Prasugrel HCl [Effient] 5 mg PO DAILY 03/02/16 Ranolazine [Ranexa] 500 mg PO BID #60 tab.er.12h 05/06/17 Ergocalciferol [Vitamin D2] 50,000 unit PO Q7D@1000 01/26/19 Glipizide [Glipizide Xl] 10 mg PO ASDIR 01/26/19 Tamsulosin HCl [Flomax -] 0.4 mg PO DAILY 01/26/19 Atorvastatin Ca [Lipitor] 40 mg PO HS #30 tablet 02/02/19 Dutasteride [Avodart] 0.5 mg PO DAILY #30 cap 02/02/19 Ertapenem Sodium [Invanz -] 1 gm IVPB DAILY #14 vial 02/02/19 Lactobacillus Acidophilus [Bacid -] 1 tab PO DAILY tab 02/02/19 Nystatin/Triamcinolone Top Oin [Mycolog II -] 1 applic TP BID #30 grams Polyethylene Glycol 3350 [Miralax 119 gm Btl -] 17 gm PO BID bottle 02/02/19 Tamsulosin HCl [Flomax -] 0.8 mg PO DAILY@0830 #60 cap.er.24h 02/02/19 Tolterodine Tartrate LA [Detrol LA -] 2 mg PO DAILY #30 cap.sr.24h 02/02/19 Valsartan [Diovan] 80 mg PO DAILY #30 tablet 02/02/19 Anemia: No Asthma: No Cancer: Yes (BLADDER) Cardiac Disorders: Yes (ID STENT INSERTION X4 2011) CVA: No COPD: No CHF: No DVT: No Dementia: No Diabetes: Yes (NIDDM) GI Disorders: No Disorders: No HTN: Yes Hypercholesterolemia: Yes Liver Disease: No Seizures: No Thyroid Disease: No - Surgical History Abdominal Surgery: (HERNIA) Cardiac Surgery: Yes (3 STENTS) - Psycho Social/Smoking Cessation Hx Smoking History: Never smoked Have you smoked in the past 12 months: Yes If you are a former smoker, when did you quit?: 3 years ago 'Breaking Loose' booklet given: 03/02/16 Hx Alcohol Use: No Drug/Substance Use Hx: No Substance Use Type: None *Physical Exam - Vital Signs Last Vital Signs Temp Pulse Resp BP Pulse Ox 98 F 96 H 18 96/70 97 02/20/19 14:06 02/20/19 14:06 02/20/19 14:06 02/20/19 14:06 02/20/19 14:06 Medical Decision Making - Medical Decision Making 02/20/19 16:13 68 yo M with hx of sepsis presents to fast track for PICC line removal. Called patient's PCP Dr. Vences who agrees that PICC line can be removed here in fast track. PICC line removed with sterile technique. Insertion site cleaned with chlorhexidine. Confirmed 40 cm PICC removed without complication. Pressure applied for 2 minutes after removal, no bleeding appreciated after removal. Site covered with xeroform, telfa, dry gauze, and tegaderm. Patient refused to be monitored for 30 minutes post PICC line removal; states "I 'm fine." Advised patient of post PICC line removal care. Advised patient of signs and symptoms for return to ER; patient verbalized understanding and agrees to plan. Discharge - Discharge Information Problems reviewed: Yes Clinical Impression/Diagnosis: PIC line (peripherally inserted central catheter) removal Condition: Stable Disposition: HOME - Admission No - Follow up/Referral Referrals: Aleja Brown MD [Primary Care Provider] - - Patient Discharge Instructions Patient Printed Discharge Instructions: DI for Central Line Catheter Removal Additional Instructions: As discussed, please keep the area of the line insertion clean and dry for the next 24 hours. Change the dressing as needed if it becomes dirty or wet. After 24 hours you may remove the dressing and clean or bathe as usual. If you notice any bleeding, please apply pressure for 2 minutes. If bleeding continues , please return to the ER immediately. If you develop any redness, swelling, warmth, or pain at the site of the insertion, or you develop fever, chills, vomiting, diarrhea, or any new or worsening symptoms, please return to the ER immediately. - Post Discharge Activity
== END 2019-02-20 16:26 | disposition home or self-care (01) ==
LOC: JERFT 14:04 → JER 14:04 → JERFT 16:26
DX: Z45.2 Encounter for adjustment and management of vascular access device (principal); Z86.19 Personal history of other infectious and parasitic diseases; I25.10 Atherosclerotic heart disease of native coronary artery without angina pectoris; I10 Essential (primary) hypertension; I25.2 Old myocardial infarction; Z95.5 Presence of coronary angioplasty implant and graft; E11.9 Type 2 diabetes mellitus without complications; Z79.4 Long term (current) use of insulin; E78.00 Pure hypercholesterolemia, unspecified; Z85.51 Personal history of malignant neoplasm of bladder
CPT/HCPCS: 99281-25

== ENCOUNTER 2024-10-08 05:33 | Day surgery (SDC) | payer OTHER ==
[2024-10-05 12:05] VITALS: BMI 30.2
[2024-10-08] MEDS ORDERED: HEPARIN NA (PORCINE) 5,000 UNITS/ML 1ML VIAL ONE (14:15)
[2024-10-08] MEDS ORDERED: LIDOCAINE HCL 1%, 10 MG/ML (20ML VIAL) ONE (14:15)
[2024-10-08] MEDS ORDERED: MIDAZOLAM HCL 2 MG/2 ML SINGLE DOSE VIAL ONE (14:24)
[2024-10-08] MEDS ORDERED: oxyCODONE HCL 5 MG TABLET PO PRN (14:30)
[2024-10-08] MEDS ORDERED: LACTATED RINGERS SOLUTION 1,000 ML IV SCH (14:30)
[2024-10-08] MEDS ORDERED: ONDANSETRON 4 MG/2 ML VIAL IVPUSH PRN (14:30)
[2024-10-08] MEDS ORDERED: ceFAZolin SODIUM 1 GM VIAL ONE (15:12)
[2024-10-08] MEDS: ceFAZolin SODIUM 1 GM VIAL IVPB ONE ×2 (15:15)
[2024-10-08] MEDS: LIDOCAINE HCL 1%, 10 MG/ML (50 mL VIAL) INF ONE ×2 (15:24)
[2024-10-08 17:45] VITALS: PULSE 61; RESP 18
[2024-10-08] MEDS: CLOPIDOGREL BISULFATE 300 MG TABLET PO ONE (18:12)
[2024-10-08 18:24] VITALS: BP 121/69; TEMP 97.1
== END 2024-10-08 18:31 | disposition home or self-care (01) ==
LOC: JASU-SURG 05:33
PROVIDERS: ATTEND Surgery
PROC: 047L3ZZ Dilation of Left Femoral Artery, Percutaneous Approach (ICD-10-PCS; 2024-10-08)
PROC: 047Q3DZ Dilation of Left Anterior Tibial Artery with Intraluminal Device, Percutaneous Approach (ICD-10-PCS; principal; 2024-10-08 15:00)
DX: I70.212 Atherosclerosis of native arteries of extremities with intermittent claudication, left leg (principal)
CPT/HCPCS: 37231; C1877; 76000-TC-FY; 82962; C1725; C1760; C1769; C1876; C1894

== ENCOUNTER 2025-01-10 06:08 | Day surgery (SDC) | payer OTHER ==
[2024-12-28 11:16] VITALS: BMI 28.0
[2025-01-10] MEDS ORDERED: HEPARIN NA (PORCINE) 5,000 UNITS/ML 1ML VIAL ONE (08:01)
[2025-01-10] MEDS ORDERED: LIDOCAINE HCL 1%, 10 MG/ML (20ML VIAL) ONE (08:02)
[2025-01-10] MEDS ORDERED: LIDOCAINE HCL/PF 2% SDV 5ML VIAL ONE (10:30)
[2025-01-10] MEDS ORDERED: MIDAZOLAM HCL 2 MG/2 ML SINGLE DOSE VIAL ONE (10:31)
[2025-01-10] MEDS ORDERED: PROPOFOL 100 ML ONE (10:31)
[2025-01-10] MEDS: LIDOCAINE HCL 1%, 10 MG/ML (50 mL VIAL) INF ONE ×2 (11:12)
[2025-01-10] MEDS ORDERED: ACETAMINOPHEN WITH CODEINE 300MG/30MG TABLET PO PRN (12:22)
[2025-01-10] MEDS ORDERED: LACTATED RINGERS SOLUTION 1,000 ML IV SCH (12:30)
[2025-01-10] MEDS: PROMETHAZINE HCL 25 MG/1 ML VIAL IVPB PRN (12:45)
[2025-01-10] MEDS ORDERED: CLOPIDOGREL BISULFATE 75 MG TABLET (FP) ONE (12:47)
[2025-01-10] MEDS: ONDANSETRON 4 MG/2 ML VIAL IVPUSH PRN (12:47)
[2025-01-10] MEDS: ACETAMINOPHEN 1000 MG/100 ML BAG IVPB ONE (13:01)
[2025-01-10] MEDS: CLOPIDOGREL BISULFATE 300 MG TABLET PO ONE (13:45)
[2025-01-10 14:09] VITALS: RESP 18
[2025-01-10 15:23] VITALS: BP 127/72; PULSE 80; TEMP 97.5
== END 2025-01-10 15:15 | disposition home or self-care (01) ==
LOC: JASU-SURG 06:08
PROVIDERS: ATTEND Surgery
PROC: 047K3ZZ Dilation of Right Femoral Artery, Percutaneous Approach (ICD-10-PCS; principal; 2025-01-10 10:00)
DX: I73.9 Peripheral vascular disease, unspecified (principal)
CPT/HCPCS: 37225; C1885; 76000-TC-FY; 82962; 94760; C1760; C1769; C1894